=== PATIENT | male | born 1950 | race Caucasian/White ===

== ENCOUNTER → 2016-11-23 | Outpatient (CLI) | payer MEDICARE ==
[~2016-11-23] MED LIST: INDO50SU2 RC; LISI1TAB8 PO; MELO-195 PO; OXYC-197 PO; SULF-222 PO
--- NOTE | 2016-11-23 14:26 | Diagnostic Imaging Report ---
Ultrasound of the left lower extremity. INDICATION: Left calf pain. Possible muscle tear. FINDINGS: There is no fluid collection or hematoma seen. The evaluation of the muscle group at the area of pain demonstrate no obvious abnormality. IMPRESSION: No definite abnormality. Dictated by: Dictated on workstation # [id number]
== END ==
LOC: RAD 13:17
PROVIDERS: ATTEND Nurse Practitioner Family
DX: M79.622 Pain in left upper arm (principal)
CPT/HCPCS: 76881

== ENCOUNTER 2017-07-27 05:35 | Outpatient (CLI) | payer MEDICARE ==
[~2017-07-27] VITALS: Ht 182.9 cm; Wt 127.0 kg
[2017-07-27] MEDS ORDERED: LISI-552 PO (10:58)
== END 2017-07-27 14:00 ==
LOC: PREOP 05:35
PROVIDERS: ATTEND Surgery
DX: Z01.818 Encounter for other preprocedural examination (principal); Z12.11 Encounter for screening for malignant neoplasm of colon

== ENCOUNTER → 2017-08-12 | Outpatient (CLI) | payer MEDICARE ==
[~2017-08-12] MED LIST changes: +LISI-552 PO
--- NOTE | 2017-08-12 15:05 | Diagnostic Imaging Report ---
INDICATION: Left-sided facial droop. TECHNIQUE: Routine non contrast-enhanced axial images were obtained from the skull base to the vertex. COMPARISON: None. FINDINGS: The ventricles and cortical sulci are age-appropriate There is no midline shift or mass-effect. No acute intra-axial hemorrhage is seen. There are no abnormal areas of increased or decreased density to suggest acute hemorrhage or edema. No extra-axial masses or collections are present. The bony calvarium is intact. The visualized paranasal sinuses show scattered mucosal thickening. The mastoid air cells are clear. IMPRESSION: 1. No acute intracranial abnormality. No CT evidence of mass, acute infarct or intracranial hemorrhage. Dictated by: Dictated on workstation # [id number]
--- NOTE | 2017-08-12 15:47 | Diagnostic Imaging Report ---
PROCEDURE: US carotid duplex, bilateral. TECHNIQUE: Multiple real-time grayscale images were obtained over the carotid arteries in various projections, bilaterally. Additional duplex Doppler and color Doppler images were also obtained. Parameters based on the consensus panel Chambers-Scale and Doppler ultrasound criteria published March 2003, Radiology, Volume 229. DOPPLER (peak systolic velocity M/S Right Left CCA .93 .68 ICA Proximal .66 .31 ICA Mid NA NA ICA Distal NA NA RATIO .71 .46 ECA .65 .78 VERT .71 .46 INDICATION: Left facial droop and left arm weakness. FINDINGS: Examination is somewhat limited as the majority of the internal carotid arteries are not well visualized. Common carotid arteries are widely patent with normal arterial waveforms. No filling defect or occlusion is identified. There is antegrade flow within both vertebral arteries. IMPRESSION: Unremarkable carotid Doppler ultrasound; however, internal carotid arteries are not well seen. If further valuation is warranted, consideration could be given to CTA for assessment. Dictated by: Dictated on workstation # [id number]
== END ==
LOC: RAD 14:12
PROVIDERS: ATTEND Nurse Practitioner Family
DX: R29.810 Facial weakness (principal); R53.1 Weakness
CPT/HCPCS: 70450; 93880

== ENCOUNTER → 2018-10-25 | Outpatient (CLI) | payer MEDICARE, OTHER ==
[~2018-10-25] MED LIST changes: -OXYC-197 PO; +OXYC1TAB87 PO
--- NOTE | 2018-10-25 14:37 | Diagnostic Imaging Report ---
PROCEDURE: CT head without contrast. TECHNIQUE: Multiple contiguous axial images were obtained through the brain without the use of intravenous contrast. Auto Exposure Controls were utilized during the CT exam to meet ALARA standards for radiation dose reduction. INDICATION: Unsteady gait and Parkinson's. COMPARISON: Correlation is made with prior head CT from 08/12/2017. FINDINGS: The ventricles and sulci are within normal limits. No sulcal effacement or midline shift is seen. No acute intra-axial or extra-axial hemorrhage is detected. Cisterns are patent. Visualized paranasal sinuses demonstrate mucous retention cyst or polyp in right maxillary sinus. There is mucosal thickening bilateral ethmoid air cells and left maxillary sinus. IMPRESSION: No acute intracranial process is detected. Dictated by: Dictated on workstation # [id number]
== END ==
LOC: RAD 13:33
PROVIDERS: ATTEND Psychiatry & Neurology Neurology
DX: G20 Parkinson's disease (principal)
CPT/HCPCS: 70450

== ENCOUNTER 2018-11-15 01:18 | Emergency (ER) | payer MEDICARE ==
[~2018-11-15] VITALS: Ht 182.9 cm; Wt 127.0 kg
--- OUTSIDE RECORDS SUMMARY | 2018-11-15 01:31 | XMS REPORT ---
Author Author Migration, Doctor Organization [facility] Address Unknown Phone Unavailable Care Team Providers Care Academic Affairs Specialist Name Role Phone Migration, Doctor Unavailable Unavailable PROBLEMS Type Condition ICD9-CM Code VHD75-UZ Code Onset Dates Condition Status SNOMED Code Problem Medicare annual wellness visit, subsequent Z00.00 Active 107386019 Problem Facial droop R29.810 Active 24720834 Problem Mixed hyperlipidemia E78.2 Active 727860296 Problem Pain of left calf M79.662 Active 6966532041448326 Problem Venous insufficiency I87.2 Active 47831185 Problem Essential hypertension I10 Active 64210338 Problem Other chronic pain G89.29 Active 71222809 Problem Osteoarthritis M19.90 Active 140368736 Problem Morbid (severe) obesity due to excess calories E66.01 Active 292539010 Problem Body mass index (BMI) of 40.0-44.9 in adult Z68.41 Active 619382528 Problem Parkinsons disease G20 Active 27035536 Problem Mild major depression F32.0 Active 09026167 ALLERGIES No Information ENCOUNTERS Encounter Location Date Diagnosis [place] [id number] [place] [address] September, [facility] [id number] [place] [address] Aug, [facility] [id number] [place] [address] Aug, Pain in right shoulder M25.511 ; Other chronic pain G89.29 ; Mild major depression F32.0 and Morbid obesity E66.01 [facility] [id number] [place] [address] Jul, [facility] [id number] [place] [address] Jul, Acute pain of right shoulder M25.511 ; Mild major depression F32.0 ; Venous insufficiency I87.2 and Morbid obesity E66.01 [facility] [address] [address] 14 Jun, 2018 Peripheral edema R60.9 [place] [address] [address] 08 Jun, 2018 Parkinsons disease G20 ; Essential hypertension I10 and Osteoarthritis M19.90 [place] [address] [address] 16 Mar, 2018 [facility] [address] [address] 16 Mar, 2018 [facility] [address] [address] 13 Jan, 2018 Dermatitis L30.9 and Bilateral impacted cerumen H61.23 [place] [address] [address] Dec, Pain of left calf M79.662 [place] [address] [address] Nov, Pain of left calf M79.662 [place] [address] [address] Oct, Pain of left calf M79.662 [place] [address] [address] September, Pain of left calf M79.662 [place] [address] [address] Aug, Pain of left calf M79.662 [place] [address] [address] Aug, Essential hypertension I10 ; Osteoarthritis M19.90 ; Body mass index (BMI) of 40.0-44.9 in adult Z68.41 ; Morbid (severe) obesity due to excess calories E66.01 ; Mixed hyperlipidemia E78.2 and Facial droop R29.810 [facility] [id number] [place] [address] Jun, Encounter for immunization Z23 [facility] [address] [address] Jun, Pain of left calf M79.662 [facility] [address] [address] 15 Jun, 2017 Medicare annual wellness visit, initial Z00.00 ; Essential hypertension I10 ; Osteoarthritis M19.90 ; Encounter for immunization Z23 and Body mass index (BMI) of 38.0-38.9 in adult Z68.38 [facility] [address] [address] May, Pain of left calf M79.662 [facility] [address] [address] May, Pain of left calf M79.662 [facility] [address] [address] May, Acute nasopharyngitis J00 [facility] [address] [address] Mar, Pain of left calf M79.662 [facility] [address] [address] Feb, Cramps of left lower extremity R25.2 [facility] [id number] [place] [address] Feb, Cramps of left lower extremity R25.2 [facility] [address] [address] Feb, [facility] [id number] [place] [address] Jan, Cramps of left lower extremity R25.2 [facility] [address] [address] Nov, [facility] [id number] [place] [address] Nov, [facility] [address] [address] Nov, Pain of left calf M79.662 [facility] [id number] [place] [address] Oct, [facility] [id number] [place] [address] Oct, [facility] [id number] [place] [address] Oct, Essential hypertension I10 ; Cramps of left lower extremity R25.2 and Morbid (severe) obesity due to excess calories E66.01 [facility] [id number] [place] [address] Oct, Cramps of left lower extremity R25.2 ; Essential hypertension I10 and Morbid (severe) obesity due to excess calories E66.01 [facility] [address] [address] Aug, [facility] [address] [address] Aug, Cramps of left lower extremity R25.2 [facility] [address] [address] Jul, Pain in left shoulder M25.512 [facility] [id number] [place] [address] Jul, Tear of left rotator cuff, unspecified tear extent M75.102 [facility] [address] [address] Jun, Pain in left shoulder M25.512 [facility] [address] [address] Jun, Essential hypertension I10 ; Pain in left shoulder M25.512 and Morbid (severe) obesity due to excess calories E66.01 [place] [id number] [place] [address] May, Pain in left shoulder M25.512 [place] [id number] [place] [address] May, Tear of left rotator cuff, unspecified tear extent M75.102 [place] [id number] [place] [address] Apr, Medicare annual wellness visit, subsequent Z00.00 ; Body mass index (BMI) of 40.0-44.9 in adult Z68.41 ; Morbid (severe) obesity due to excess calories E66.01 ; Essential hypertension I10 ; Pain in left shoulder M25.512 and Other chronic pain G89.29 [place] [id number] [place] [address] Apr, Osteoarthritis M19.90 [place] [id number] [place] [address] Apr, Tear of left rotator cuff, unspecified tear extent M75.102 [place] [id number] [address] Apr, Tear of left rotator cuff, unspecified tear extent M75.102 [place] [id number] [place] [address] Mar, Tear of left rotator cuff, unspecified tear extent M75.102 [place] [id number] [place] [address] Mar, Tear of left rotator cuff, unspecified tear extent M75.102 [place] [address] [address] Mar, Tear of left rotator cuff, unspecified tear extent M75.102 [facility] [id number] [place] [address] Mar, Tear of left rotator cuff, unspecified tear extent M75.102 [facility] [id number] [place] [address] Mar, Essential hypertension I10 ; Obesity E66.9 and Bacterial conjunctivitis of both eyes H10.9 [place] [id number] [place] [address] Feb, Tear of left rotator cuff, unspecified tear extent M75.102 [place] [address] [place] [address] 17 Feb, 2016 Tear of left rotator cuff, unspecified tear extent M75.102 [place] [address] [id number] [place] [address] Feb, Tear of left rotator cuff, unspecified tear extent M75.102 [place] [id number] [place] [address] Feb, Tear of left rotator cuff, unspecified tear extent M75.102 [place] [address] [id number] [place] [address] Jan, Tear of left rotator cuff, unspecified tear extent M75.102 [place] [id number] [place] [address] Jan, Tear of left rotator cuff, unspecified tear extent M75.102 [place] [id number] [place] [address] Jan, Tear of left rotator cuff, unspecified tear extent M75.102 [place] [id number] [place] [address] Jan, Tear of left rotator cuff, unspecified tear extent M75.102 [place] [address] [id number] [place] [address] Dec, [facility] [address] [address] Dec, Tear of left rotator cuff, unspecified tear extent M75.102 [facility] [address] [address] Dec, Essential hypertension I10 ; Osteoarthritis M19.90 and Obesity E66.9 [facility] [id number] [place] [address] September, Essential hypertension I10 and Obesity E66.9 [facility] [id number] [place] [address] Jun, Essential hypertension I10 ; Obesity E66.9 and Osteoarthritis M19.90 [place] [id number] [place] [address] Jun, [facility] [id number] [place] [address] May, Tear of left rotator cuff, unspecified tear extent M75.102 [facility] [id number] [place] [address] May, Muscle spasm M62.838 [facility] [id number] [place] [address] Apr, [facility] [id number] [place] [address] Apr, Essential hypertension I10 [facility] [address] [id number] [id number] Feb, Dental examination Z01.20 and Dental caries, unspecified K02.9 [facility] [address] [address] 28 Jan, 2015 Impacted cerumen of both ears 380.[address] [facility] [address] [id number] [id number] 17 Jan, 2015 Dental examination V72.2 [facility] [address] [address] 14 Jan, 2015 Impacted cerumen of both ears 380.4 [facility] [address] [address] 02 Oct, 2014 Essential hypertension, benign 401.1 [facility] [address] [address] 14 Aug, 2014 [facility] [address] [address] Aug, [facility] [id number] [place] [address] Jul, [facility] [id number] [place] [address] Jul, [facility] [id number] [place] [address] Jun, [facility] [address] [address] Jun, [facility] [id number] [place] [address] Mar, [facility] [address] [address] Mar, [facility] [address] [address] Jul, [facility] [address] [address] Jul, [facility] [address] [address] Jun, [facility] [address] [address] Jun, [facility] [address] [address] Jun, [facility] [place] [facility] [address] [id number] [place] [address] Jun, 2013 [facility] [place] [facility] [address] [id number] [place] [address] Jun, [facility] [place] [facility] [address] [id number] [place] [address] Jun, [facility] [place] [facility] [address] [id number] [place] [address] Feb, [facility] [place] [facility] [address] [id number] [place] [address] Feb, [facility] [place] [facility] [address] [id number] [place] [address] Feb, [facility] [place] [facility] [address] [id number] [place] [address] Feb, [facility] [place] [facility] [address] [id number] [place] [address] Feb, [facility] [place] [facility] [address] [id number] [place] [address] Feb, [facility] [place] [facility] [address] [facility] [id number] [place] [address] Feb, [facility] [place] [facility] [address] [id number] [place] [address] Feb, [facility] [place] [facility] [address] [id number] [place] [address] 05 Feb, 2013 [facility] [place] [facility] [address] [id number] [place] [address] Feb, [facility] [place] [facility] [address] [id number] [place] [address] 10 Jan, 2012 [facility] [place] [facility] [address] [id number] [place] [address] 07 Jan, 2012 [facility] [place] [facility] [address] [facility] [id number] [place] [address] Aug, [facility] [address] [facility]] [id number] [place] [address] Aug, [facility] [id number] [address] Aug, [facility] [address] [facility] [id number] [place] [address] Aug, [facility] [address] [facility] [id number] [place] [address] September, IMMUNIZATIONS No Known Immunizations SOCIAL HISTORY Never Assessed REASON FOR VISIT [place] [place] CARE VITAL SIGNS MEDICATIONS Unknown Medications RESULTS No Results PROCEDURES No Known procedures INSTRUCTIONS MEDICATIONS ADMINISTERED No Known Medications MEDICAL (GENERAL) HISTORY Type Description Date Medical History obesity Medical History seasonal allergies Medical History benign essential hypertension Surgical History neuroplasty w/ transposition of median nerve at carpal tunnel 2005---right wrist 2005 Surgical History cataract removal Surgical History Colonoscopy- polyps removed- needs repeat colo in 5 yrs 07/2017 Hospitalization History pulled muscle, thought it was appendix @ age 17
--- OUTSIDE RECORDS SUMMARY | 2018-11-15 01:31 | XMS REPORT ---
Author Author Migration, Doctor Organization [facility] Address Unknown Phone Unavailable Care Team Providers Care Personalized Living Manager Name Role Phone Migration, Doctor Unavailable Unavailable PROBLEMS Type Condition ICD9-CM Code COX15-HP Code Onset Dates Condition Status SNOMED Code Problem Essential hypertension I10 Active 57701324 Problem Medicare annual wellness visit, subsequent Z00.00 Active 163959017 Problem Facial droop R29.810 Active 63463711 Problem Mild major depression F32.0 Active 91484789 Problem Osteoarthritis M19.90 Active 684570689 Problem Venous insufficiency I87.2 Active 92747805 Problem Pain of left calf M79.662 Active 5358617349363225 Problem Mixed hyperlipidemia E78.2 Active 353439694 Problem Morbid (severe) obesity due to excess calories E66.01 Active 411778370 Problem Body mass index (BMI) of 40.0-44.9 in adult Z68.41 Active 345218390 Problem Parkinsons disease G20 Active 17643394 ALLERGIES No Information ENCOUNTERS Encounter Location Date Diagnosis [place] [address] [address] 08 Aug, 2018 [place] [address] [address] 28 Jul, 2018 [place] [address] [address] 22 Jul, 2018 Acute pain of right shoulder M25.511 ; Mild major depression F32.0 ; Venous insufficiency I87.2 and Morbid obesity E66.01 [place] [address] [address] 14 Jun, 2018 Peripheral edema R60.9 [place] [address] [address] 08 Jun, 2018 Parkinsons disease G20 ; Essential hypertension I10 and Osteoarthritis M19.90 [place] [address] [place] [id number] [place] [address] 16 Mar, 2018 [facility] [address] [address] Mar, [facility] [address] [address] Jan, Dermatitis L30.9 and Bilateral impacted cerumen H61.23 [facility] [address] [address] Dec, Pain of left calf M79.662 [place] [address] [address] Nov, Pain of left calf M79.662 [place] [address] [address] Oct, Pain of left calf M79.662 [place] [address] [address] September, Pain of left calf M79.662 [place] [address] [address] Aug, Pain of left calf M79.662 [place] [address] [address] Aug, Essential hypertension I10 ; Osteoarthritis M19.90 ; Body mass index (BMI) of 40.0-44.9 in adult Z68.41 ; Morbid (severe) obesity due to excess calories E66.01 ; Mixed hyperlipidemia E78.2 and Facial droop R29.810 [place] [address] [address] Jun, Encounter for immunization Z23 [place] [address] [address] Jun, Pain of left calf M79.662 [place] [address] [place] [address] 15 Jun, 2017 Medicare annual wellness visit, initial Z00.00 ; Essential hypertension I10 ; Osteoarthritis M19.90 ; Encounter for immunization Z23 and Body mass index (BMI) of 38.0-38.9 in adult Z68.38 [facility] [address] [place] [id number] [place] [address] May, Pain of left calf M79.662 [facility] [address] [place] [id number] [place] [address] May, Pain of left calf M79.662 [facility] [address] [address] May, Acute nasopharyngitis J00 [facility] [address] [place] [id number] [place] [address] Mar, Pain of left calf M79.662 [facility] [address] [place] [id number] [place] [address] Feb, Cramps of left lower extremity R25.2 [facility] [address] [place] [id number] [place] [address] Feb, Cramps of left lower extremity R25.2 [facility] [address] [place] [id number] [place] [address] Feb, [facility] [address] [place] [id number] [place] [address] Jan, Cramps of left lower extremity R25.2 [facility] [address] [place] [id number] [place] [address] Nov, [facility] [address] [address] Nov, [facility] [address] [place] [id number] [place] [address] Nov, Pain of left calf M79.662 [facility] [address] [address] Oct, [facility] [address] [address] Oct, [facility] [address] [address] Oct, Essential hypertension I10 ; Cramps of left lower extremity R25.2 and Morbid (severe) obesity due to excess calories E66.01 [facility] [address] [address] Oct, Cramps of left lower extremity R25.2 ; Essential hypertension I10 and Morbid (severe) obesity due to excess calories E66.01 [facility] [address] [address] Aug, [facility] [address] [place] [id number] [place] [address] Aug, Cramps of left lower extremity R25.2 [facility] [address] [address] Jul, Pain in left shoulder M25.512 [facility] [address] [address] Jul, Tear of left rotator cuff, unspecified tear extent M75.102 [facility] [address] [place] [id number] [address] Jun, Pain in left shoulder M25.512 [facility] [address] [address] Jun, Essential hypertension I10 ; Pain in left shoulder M25.512 and Morbid (severe) obesity due to excess calories E66.01 [facility] [address] [place] [id number] [address] May, Pain in left shoulder M25.512 [facility] [address] [place] [id number] [place] [address] May, Tear of left rotator cuff, unspecified tear extent M75.102 [place] [address] [place] [id number] Apr, Medicare annual wellness visit, subsequent Z00.00 ; Body mass index (BMI) of 40.0-44.9 in adult Z68.41 ; Morbid (severe) obesity due to excess calories E66.01 ; Essential hypertension I10 ; Pain in left shoulder M25.512 and Other chronic pain G89.29 [place] [address] [place] [id number] [place] [address] 27 Apr, 2016 Osteoarthritis M19.90 [place] [address] [address] Apr, Tear of left rotator cuff, unspecified tear extent M75.102 [place] [address] [address] Apr, Tear of left rotator cuff, unspecified tear extent M75.102 [place] [address] [place] [id number] [place] [address] Mar, Tear of left rotator cuff, unspecified tear extent M75.102 [place] [address] [place] [id number] [place] [address] Mar, Tear of left rotator cuff, unspecified tear extent M75.102 [place] [address] [place] [id number] [place] [address] Mar, Tear of left rotator cuff, unspecified tear extent M75.102 [place] [address] [place] [id number] [place] [address] Mar, Tear of left rotator cuff, unspecified tear extent M75.102 [place] [address] [place] [id number] [place] [address] 08 Mar, 2016 Essential hypertension I10 ; Obesity E66.9 and Bacterial conjunctivitis of both eyes H10.9 [place] [address] [address] Feb, Tear of left rotator cuff, unspecified tear extent M75.102 [facility] [address] [place] [id number] [place] [address] Feb, Tear of left rotator cuff, unspecified tear extent M75.102 [facility] [address] [place] [id number] [place] [address] Feb, Tear of left rotator cuff, unspecified tear extent M75.102 [facility] [address] [place] [id number] [place] [address] Feb, Tear of left rotator cuff, unspecified tear extent M75.102 [facility] [address] [place] [id number] [place] [address] Jan, Tear of left rotator cuff, unspecified tear extent M75.102 [facility] [address] [place] [id number] [place] [address] Jan, Tear of left rotator cuff, unspecified tear extent M75.102 [facility] [address] [place] [id number] [place] [address] Jan, Tear of left rotator cuff, unspecified tear extent M75.102 [facility] [id number] [place] [address] Jan, Tear of left rotator cuff, unspecified tear extent M75.102 [facility] [address] [place] [id number] [place] [address] Dec, [facility] [address] [place] [id number] [place] [address] Dec, Tear of left rotator cuff, unspecified tear extent M75.102 [facility] [id number] [place] [address] Dec, Essential hypertension I10 ; Osteoarthritis M19.90 and Obesity E66.9 [facility] [address] [place] [id number] [place] [address] September, Essential hypertension I10 and Obesity E66.9 [place] [address] [place] [id number] [place] [address] Jun, Essential hypertension I10 ; Obesity E66.9 and Osteoarthritis M19.90 [place] [address] [place] [id number] [place] [address] Jun, [place] [address] [place] [id number] [place] [address] May, Tear of left rotator cuff, unspecified tear extent M75.102 [place] [address] [address] May, Muscle spasm M62.838 [place] [address] [place] [id number] [place] [address] Apr, [place] [address] [place] [id number] [place] [address] Apr, Essential hypertension I10 [address] [id number] [id number] Feb, Dental examination Z01.20 and Dental caries, unspecified K02.9 [place] [id number] [place] [address] Jan, Impacted cerumen of both ears 380.[address] [id number] [id number] 17 Jan, 2015 Dental examination V72.2 [place] [id number] [place] [address] 14 Jan, 2015 Impacted cerumen of both ears 380.4 [place] [address] [place] [id number] [place] [address] Oct, Essential hypertension, benign 401.1 [place] [address] [place] [id number] [place] [address] 14 Aug, 2014 [facility] [place] [facility] [address] [id number] [place] [address] 13 Aug, 2014 [facility] [place] [facility] [address] [id number] [place] [address] Jul, [facility] [place] [facility] [address] [id number] [place] [address] Jul, [facility] [place] [facility] [address] [id number] [place] [address] Jun, [facility] [place] [facility] [address] [id number] [place] [address] Jun, [facility] [place] [facility] [address] [id number] [place] [address] Mar, [facility] [place] [facility] [address] [facility] [id number] [place] [address] Mar, [facility] [place] [facility] [address] [id number] [place] [address] Jul, [facility] [place] [facility] [address] [facility] [id number] [place] [address] Jul, [facility] [place] [facility] [address] [facility] [id number] [place] [address] Jun, [facility] [place] [facility] [address] [facility] [id number] [place] [address] Jun, [facility] [place] [facility] [address] [id number] [place] [address] Jun, [facility] [place] [facility] [address] [id number] [place] [address] Jun, [facility] [place] [facility] [address] [facility] [id number] [place] [address] Jun, [facility] [place] [facility] [address] [facility] [id number] [place] [address] Jun, [facility] [place] [facility] [address] [id number] [place] [address] Feb, 2012 [facility] [place] [facility] [address] [id number] [place] [address] Feb, 2012 [facility] [place] [facility] [address] [id number] [place] [address] Feb, 2012 [facility] [place] [facility] [address] [id number] [place] [address] Feb, 2012 [facility] [place] [facility] [address] [id number] [place] [address] Feb, 2012 [facility] [place] [facility] [address] [id number] [place] [address] Feb, 2012 [facility] [place] [facility] [address] [id number] [place] [address] 08 Feb, 2013 [facility] [place] [facility] [address] [id number] [place] [address] 07 Feb, 2012 [facility] [place] [facility] [address] [id number] [place] [address] 05 Feb, 2013 [facility] [place] [facility] [address] [id number] [place] [address] 04 Feb, 2013 [facility] [place] [facility] [address] [id number] [place] [address] 10 Jan, 2012 [facility] [place] [facility] [address] [id number] [place] [address] 07 Jan, 2012 [facility] [place] [facility] [address] [id number] [place] [address] 23 Aug, 2011 [facility] [place] [facility] [address] [id number] [place] [address] 16 Aug, 2011 [facility] [place] [facility] [address] [id number] [place] [address] 16 Aug, 2011 [facility] [place] [facility] [address] [id number] [place] [address] Aug, [facility] [address] [facility] [id number] [place] [address] September, IMMUNIZATIONS No Known Immunizations SOCIAL HISTORY Never Assessed REASON FOR VISIT EMR-[facility] PLAN OF CARE VITAL SIGNS MEDICATIONS Medication Instructions Dosage Frequency Start Date End Date Duration Status Lisinopril-Hydrochlorothiazide 20-25 mg take 1 tablet by Oral route 1 time per day Jul, Active Debrox 6.5 % 3 drop by Otic route 2 times per day for 4 day(s) Aug, Active PredniSONE 20 mg 3 tablet by Oral route 1 time per day for 5 day(s) Jun, Active RESULTS No Results PROCEDURES No Known procedures [...]
--- OUTSIDE RECORDS SUMMARY | 2018-11-15 01:32 | XMS REPORT ---
Author Author BIBIANA DANGELO [facility] Address [address] [place] [address] Care Team Providers Care Interactive Project Manager Name Role Phone LORETO BIBIANA Unavailable PROBLEMS Type Condition ICD9-CM Code [id number] Code Onset Dates Condition Status SNOMED Code Problem Osteoarthritis M19.90 Active 922614925 Problem Pain of left calf M79.662 Active 6419509411993735 Problem Morbid (severe) obesity due to excess calories E66.01 Active 664445711 Problem Mixed hyperlipidemia E78.2 Active 103718032 Problem Medicare annual wellness visit, subsequent Z00.00 Active 529323434 Problem Essential hypertension I10 Active 24114588 Problem Body mass index (BMI) of 40.0-44.9 in adult Z68.41 Active 993256982 Problem Facial droop R29.810 Active 24565208 ALLERGIES No Information ENCOUNTERS Encounter Location Date Diagnosis [facility] [address] [address] Dec, [facility] [id number] [place] [address] Nov, [facility] [id number] [place] [address] Oct, [facility] [id number] [place] [address] September, Pain of left calf M79.662 [facility] [address] [address] Aug, Pain of left calf M79.662 [facility] [id number] [place] [address] Aug, Essential hypertension I10 ; Osteoarthritis M19.90 ; Body mass index (BMI) of 40.0-44.9 in adult Z68.41 ; Morbid (severe) obesity due to excess calories E66.01 ; Mixed hyperlipidemia E78.2 and Facial droop R29.810 [place] [address] [address] Jun, Encounter for immunization Z23 [facility] [address] [address] Jun, Pain of left calf M79.662 [place] [address] [address] 15 Jun, 2017 Medicare annual wellness visit, initial Z00.00 ; Essential hypertension I10 ; Osteoarthritis M19.90 ; Encounter for immunization Z23 and Body mass index (BMI) of 38.0-38.9 in adult Z68.38 [place] [address] [address] May, Pain of left calf M79.662 [place] [address] [address] May, Pain of left calf M79.662 [facility] [address] [address] May, Acute nasopharyngitis J00 [facility] [address] [address] Mar, Pain of left calf M79.662 [facility] [address] [address] Feb, Cramps of left lower extremity R25.2 [place] [address] [address] Feb, Cramps of left lower extremity R25.2 [facility] [address] [address] Feb, [facility] [address] [address] Jan, Cramps of left lower extremity R25.2 [facility] [address] [address] Nov, [facility] [address], [place] [address] Nov, [facility] [id number] [place] [address] Nov, Pain of left calf M79.662 [facility] [address] [address] Oct, [facility] [id number] [place] [address] Oct, [facility] [address] [place] [address] Oct, Essential hypertension I10 ; Cramps of left lower extremity R25.2 and Morbid (severe) obesity due to excess calories E66.01 [facility] [address], [place] [address] Oct, Cramps of left lower extremity R25.2 ; Essential hypertension I10 and Morbid (severe) obesity due to excess calories E66.01 [facility] [address] [address] Aug, [facility] [id number] [place] [address] Aug, Cramps of left lower extremity R25.2 [facility] [address], [place] [address] Jul, Pain in left shoulder M25.512 [facility] [address], [place] [address] Jul, Tear of left rotator cuff, unspecified tear extent M75.102 [facility] [id number] [place] [address] Jun, Pain in left shoulder M25.512 [place] [address], [place] [address] Jun, Essential hypertension I10 ; Pain in left shoulder M25.512 and Morbid (severe) obesity due to excess calories E66.01 [place] [address], [place] [address] May, Pain in left shoulder M25.512 [place] [id number], [place] [address] May, Tear of left rotator cuff, unspecified tear extent M75.102 [place] [id number] [place] [address] Apr, Medicare annual wellness visit, subsequent Z00.00 ; Body mass index (BMI) of 40.0-44.9 in adult Z68.41 ; Morbid (severe) obesity due to excess calories E66.01 ; Essential hypertension I10 ; Pain in left shoulder M25.512 and Other chronic pain G89.29 [place] [id number] [place] [address] Apr, Osteoarthritis M19.90 [place] [id number] [place] [address] Apr, Tear of left rotator cuff, unspecified tear extent M75.102 [place] [address], [place] [address] Apr, Tear of left rotator cuff, unspecified tear extent M75.102 [place] [address] [place] [address] Mar, Tear of left rotator cuff, unspecified tear extent M75.102 [place] [address], [place] [address] Mar, Tear of left rotator cuff, unspecified tear extent M75.102 [place] [id number] [place] [address] Mar, Tear of left rotator cuff, unspecified tear extent M75.102 [place] [address] [place] [address] Mar, Tear of left rotator cuff, unspecified tear extent M75.102 [place] [address] [place] [address] Mar, Essential hypertension I10 ; Obesity E66.9 and Bacterial conjunctivitis of both eyes H10.9 [place] [address] [place] [address] Feb, Tear of left rotator cuff, unspecified tear extent M75.102 [place] [id number] [place] [address] Feb, Tear of left rotator cuff, unspecified tear extent M75.102 [place] [address] [address] Feb, Tear of left rotator cuff, unspecified tear extent M75.102 [place] [address] [place] [address] Feb, Tear of left rotator cuff, unspecified tear extent M75.102 [place] [id number] [place] [address] Jan, Tear of left rotator cuff, unspecified tear extent M75.102 [place] [id number] [place] [address] Jan, Tear of left rotator cuff, unspecified tear extent M75.102 [place] [address] [place] [address] Jan, Tear of left rotator cuff, unspecified tear extent M75.102 [place] [id number] [place] [address] Jan, Tear of left rotator cuff, unspecified tear extent M75.102 [place] [id number] [place] [address] Dec, [place] [id number] [place] [address] Dec, Tear of left rotator cuff, unspecified tear extent M75.102 [facility] [address] [place] [address] Dec, Essential hypertension I10 ; Osteoarthritis M19.90 and Obesity E66.9 [place] [id number] [place] [address] September, Essential hypertension I10 and Obesity E66.9 [place] [id number] [place] [address] Jun, Essential hypertension I10 ; Obesity E66.9 and Osteoarthritis M19.90 [place] [id number] [place] [address] Jun, [place] [id number] [place] [address] May, Tear of left rotator cuff, unspecified tear extent M75.102 [place] [address] [place] [address] May, Muscle spasm M62.838 [place] [id number] [place] [address] Apr, [place] [id number] [place] [address] Apr, Essential hypertension I10 [facility] [address] [id number] [id number] Feb, Dental examination Z01.20 and Dental caries, unspecified K02.9 [facility] [id number], [place] [address] Jan, Impacted cerumen of both ears 380.4 [facility] [address] [id number] [id number] 17 Jan, 2015 Dental examination V72.2 [facility] [address], [place] [address] 14 Jan, 2015 Impacted cerumen of both ears 380.4 [facility] [address], [place] [address] 02 Oct, 2014 Essential hypertension, benign 401.1 [facility] [address], [place] [address] 14 Aug, 2014 [facility] [id number] [place] [address] Aug, [facility] [id number], [place] [address] Jul, [facility] [id number] [place] [address] Jul, [facility] [address], [place] [address] Jun, [facility] [address], [place] [address] Jun, [facility] [address], [place] [address] Mar, [facility] [address], [place] [address] Mar, [facility] [address], [place] [address] Jul, [facility] [address], [place] [address] Jul, [facility] [address], [place] [address] Jun, [facility] [id number], [place] [address] Jun, [facility] [place] [facility] [address] [id number] [place] [address] Jun, 2013 [facility] [place] [facility] [address] [id number] [place] [address] Jun, 2013 [facility] [place] [facility] [address] [id number] [place] [address] Jun, [facility] [place] [facility] [address] [id number] [place] [address] Jun, [facility] [place] [facility] [address] [id number] [place] [address] Feb, [facility] [place] [facility] [address] [id number] [place] [address] Feb, [facility] [place] [facility] [address] [id number] [place] [address] Feb, [facility] [place] [facility] [address] [id number], [place] [address] Feb, [facility] [place] [facility] [address] [id number] [place] [address] Feb, [facility] [place] [facility] [address] [id number], [place] [address] Feb, [facility] [place] [facility] [address] [facility] [id number], [place] [address] Feb, [facility] [place] [facility] [address] [id number], [place] [address] Feb, [facility] [place] [facility] [address] [id number], [place] [address] 05 Feb, 2013 [facility] [place] [facility] [address] [id number], [place] [address] 04 Feb, 2013 [facility] [place] [facility] [address] [id number], [place] [address] 10 Jan, 2012 [facility] [place] [facility] [address] [id number], [place] [address] Jan, [facility] [address] [facility] [id number], [place] [address] Aug, [facility] [id number], [place] [address] Aug, [facility] [address] [facility] [id number], [place] [address] Aug, [facility] [id number], [place] [address] Aug, [facility] [address] [facility] [id number], [place] [address] September, IMMUNIZATIONS No Known Immunizations SOCIAL HISTORY Never Assessed REASON FOR VISIT PT follow-up PLAN OF CARE Activity Details Follow Up 2 Weeks Reason:F/U PT VITAL SIGNS MEDICATIONS Unknown Medications RESULTS No Results PROCEDURES Procedure Date Ordered Result Body Site THERAPEUTIC EXERCISES August 15, 2017 INSTRUCTIONS MEDICATIONS ADMINISTERED No Known Medications MEDICAL (GENERAL) HISTORY Type Description Date Medical History obesity Medical History seasonal allergies Medical History benign essential hypertension Surgical History neuroplasty w/ transposition of median nerve at carpal tunnel 2005---right wrist 2005 Surgical History cataract removal Surgical History Colonoscopy 07/2017 Hospitalization History pulled muscle, thought it was appendix @ age 17
--- OUTSIDE RECORDS SUMMARY | 2018-11-15 01:32 | XMS REPORT ---
Author Author BIBIANA DANGELO [facility] Address [address] [place] [address] Care Team Providers Care Heel Shaper Name Role Phone LORETO BIBIANA Unavailable PROBLEMS Type Condition ICD9-CM Code PVU35-XU Code Onset Dates Condition Status SNOMED Code Problem Osteoarthritis M19.90 Active 415188595 Problem Pain of left calf M79.662 Active 2162665903405367 Problem Morbid (severe) obesity due to excess calories E66.01 Active 978518790 Problem Mixed hyperlipidemia E78.2 Active 092751744 Problem Medicare annual wellness visit, subsequent Z00.00 Active 579734424 Problem Essential hypertension I10 Active 06999008 Problem Body mass index (BMI) of 40.0-44.9 in adult Z68.41 Active 963780082 Problem Facial droop R29.810 Active 09936876 ALLERGIES No Information ENCOUNTERS Encounter Location Date Diagnosis [facility] [id number] [place] [address] 13 Jan, 2018 Dermatitis L30.9 and Bilateral impacted cerumen H61.23 [facility] [id number] [place] [address] Dec, [facility] [id number] [place] [address] Nov, [facility] [id number] [place] [address] Oct, Pain of left calf M79.662 [facility] [id number] [place] [address] September, Pain of left calf M79.662 [facility] [id number] [place] [address] Aug, Pain of left calf M79.662 [facility] [id number] [place] [address] 02 Aug, 2017 Essential hypertension I10 ; Osteoarthritis M19.90 ; Body mass index (BMI) of 40.0-44.9 in adult Z68.41 ; Morbid (severe) obesity due to excess calories E66.01 ; Mixed hyperlipidemia E78.2 and Facial droop R29.810 [place] [id number] [place] [address] Jun, Encounter for immunization Z23 [place] [address] [address] Jun, Pain of left calf M79.662 [place] [facility] [id number] [place] [address] 15 Jun, 2017 Medicare annual wellness visit, initial Z00.00 ; Essential hypertension I10 ; Osteoarthritis M19.90 ; Encounter for immunization Z23 and Body mass index (BMI) of 38.0-38.9 in adult Z68.38 [place] [id number] [place] [address] May, Pain of left calf M79.662 [facility] [facility] [id number] [place] [address] May, Pain of left calf M79.662 [facility] [id number] [place] [address] May, Acute nasopharyngitis J00 [facility] [id number] [place] [address] Mar, Pain of left calf M79.662 [facility] [address] [address] Feb, Cramps of left lower extremity R25.2 [place] [facility] [id number] [place] [address] Feb, Cramps of left lower extremity R25.2 [facility] [address] [id number], [place] [address] Feb, [facility] [address] [id number], [place] [address] Jan, Cramps of left lower extremity R25.2 [facility] [address] [id number] [address] Nov, [facility] [address] [id number], [place] [address] Nov, [facility] [id number] [place] [address] Nov, Pain of left calf M79.662 [facility] [address], [place] [address] Oct, [facility] [address] [id number] [address] Oct, [facility] [address] [id number] [address] Oct, Essential hypertension I10 ; Cramps of left lower extremity R25.2 and Morbid (severe) obesity due to excess calories E66.01 [facility] [address] [address] Oct, Cramps of left lower extremity R25.2 ; Essential hypertension I10 and Morbid (severe) obesity due to excess calories E66.01 [facility] [address] [id number], [place] [address] Aug, [facility] [address] [id number] [address] Aug, Cramps of left lower extremity R25.2 [facility] [id number], [place] [address] Jul, Pain in left shoulder M25.512 [facility] [address] [place] [address] Jul, Tear of left rotator cuff, unspecified tear extent M75.102 [place] [id number] [place] [address] Jun, Pain in left shoulder M25.512 [place] [facility] [id number] [place] [address] Jun, Essential hypertension I10 ; Pain in left shoulder M25.512 and Morbid (severe) obesity due to excess calories E66.01 [place] [facility] [id number] [place] [address] May, Pain in left shoulder M25.512 [place] [id number] [place] [address] May, Tear of left rotator cuff, unspecified tear extent M75.102 [place] [facility] [id number] [place] [address] Apr, Medicare annual wellness visit, subsequent Z00.00 ; Body mass index (BMI) of 40.0-44.9 in adult Z68.41 ; Morbid (severe) obesity due to excess calories E66.01 ; Essential hypertension I10 ; Pain in left shoulder M25.512 and Other chronic pain G89.29 [place] [address], [place] [address] Apr, Osteoarthritis M19.90 [place] [facility] [id number] [place] [address] Apr, Tear of left rotator cuff, unspecified tear extent M75.102 [place] [facility] [id number] [place] [address] Apr, Tear of left rotator cuff, unspecified tear extent M75.102 [place] [address], [place] [address] Mar, Tear of left rotator cuff, unspecified tear extent M75.102 [place] [id number] [place] [address] Mar, Tear of left rotator cuff, unspecified tear extent M75.102 [place] [id number] [place], [place] [address] Mar, Tear of left rotator cuff, unspecified tear extent M75.102 [place] [address] [address] Mar, Tear of left rotator cuff, unspecified tear extent M75.102 [place] [address] [address] Mar, Essential hypertension I10 ; Obesity E66.9 and Bacterial conjunctivitis of both eyes H10.9 [place] [address] [address] Feb, Tear of left rotator cuff, unspecified tear extent M75.102 [place] [id number] [place] [address] Feb, Tear of left rotator cuff, unspecified tear extent M75.102 [place] [id number] [place] [address] Feb, Tear of left rotator cuff, unspecified tear extent M75.102 [place] [id number] [place] [address] Feb, Tear of left rotator cuff, unspecified tear extent M75.102 [place] [id number] [place] [address] 28 Jan, 2016 Tear of left rotator cuff, unspecified tear extent M75.102 [place] [id number] [place] [address] 19 Jan, 2016 Tear of left rotator cuff, unspecified tear extent M75.102 [place] [id number] [place] [address] 06 Jan, 2016 Tear of left rotator cuff, unspecified tear extent M75.102 [facility] [address], [place] [address] Jan, Tear of left rotator cuff, unspecified tear extent M75.102 [facility] [address], [place] [address] Dec, [facility] [id number] [place] [address] Dec, Tear of left rotator cuff, unspecified tear extent M75.102 [facility] [address] [place] [address] Dec, Essential hypertension I10 ; Osteoarthritis M19.90 and Obesity E66.9 [facility] [id number] [place] [address] September, Essential hypertension I10 and Obesity E66.9 [facility] [id number] [place] [address] Jun, Essential hypertension I10 ; Obesity E66.9 and Osteoarthritis M19.90 [facility] [address] [place] [address] Jun, [facility] [address] [place] [address] May, Tear of left rotator cuff, unspecified tear extent M75.102 [facility] [address] [place] [address] May, Muscle spasm M62.838 [facility] [address], [place] [address] Apr, [place] [id number] [place] [address] Apr, Essential hypertension I10 [id number] [facility] [id number] [id number] Feb, Dental examination Z01.20 and Dental caries, unspecified K02.9 [facility] [address] [id number], [place] [address] 28 Jan, 2015 Impacted [facility]umen [facility] both ears 380.4 [facility] [id number] [id number] 17 Jan, 2015 Dental examination V72.2 [facility] [address] [id number], [place] [address] 14 Jan, 2015 Impacted cerumen of both ears 380.4 [facility] [address] [id number], [place] [address] 02 Oct, 2014 Essential hypertension, benign 401.1 [facility] [address] [id number], [place] [address] 14 Aug, 2014 [facility] [address], [place] [address] Aug, [facility] [address], [place] [address] Jul, [facility] [address], [place] [address] Jul, [facility] [address], [place] [address] Jun, [facility] [address], [place] [address] Jun, [facility] [id number], [place] [address] Mar, [facility] [id number], [place] [address] Mar, [facility] [address], [place] [address] Jul, [facility] [id number], [place] [address] Jul, [facility] [id number] [place] [address] Jun, 2013 [facility] [place] [facility] [address] [id number] [place] [address] Jun, 2013 [facility] [place] [facility] [address] [id number] [place] [address] Jun, 2013 [facility] [place] [facility] [address] [id number] [place] [address] Jun, 2013 [facility] [place] [facility] [address] [id number] [place] [address] Jun, 2013 [facility] [place] [facility] [address] [id number] [place] [address] Jun, 2013 [facility] [place] [facility] [address] [id number] [place] [address] Feb, [facility] [place] [facility] [address] [id number] [place] [address] Feb, [facility] [place] [facility] [address] [id number] [place] [address] Feb, [facility] [place] [facility] [address] [id number] [place] [address] Feb, [facility] [place] [facility] [address] [id number] [place] [address] Feb, [facility] [place] [facility] [address] [id number] [place] [address] Feb, [facility] [place] [facility] [address] [id number] [place] [address] 08 Feb, 2013 [facility] [place] [facility] [address] [id number] [place] [address] 07 Feb, 2013 [facility] [place] [facility] [address] [id number] [place] [address] 05 Feb, 2013 [facility] [place] [facility] [address] [id number] [place] [address] Feb, [facility] [id number], [place] [address] Jan, [facility] [address], [place] [address] Jan, [facility] [id number], [place] [address] Aug, [facility] [address], [place] [address] Aug, [facility] [address], [place] [address] Aug, [facility] [address], [place] [address] Aug, [facility] [address], [place] [address] September, IMMUNIZATIONS No Known Immunizations SOCIAL HISTORY Never Assessed REASON FOR VISIT PT follow-up PLAN OF CARE Activity Details Follow Up 3 Weeks Reason:F/U PT VITAL SIGNS MEDICATIONS No Known Medications RESULTS No Results PROCEDURES Procedure Date Ordered Result Body Site THERAPEUTIC EXERCISES October 31, 2017 INSTRUCTIONS MEDICATIONS ADMINISTERED No Known Medications [...]
--- OUTSIDE RECORDS SUMMARY | 2018-11-15 01:32 | XMS REPORT ---
Author Author CARLA SERRATO [facility] Address [address] [place] [address] Care Team Providers Care Mining Helper Name Role Phone CARLA SERRATO Unavailable PROBLEMS Type Condition ICD9-CM Code XYV02-ER Code Onset Dates Condition Status SNOMED Code Problem Osteoarthritis M19.90 Active 234072788 Problem Pain of left calf M79.662 Active 9557317556583382 Problem Morbid (severe) obesity due to excess calories E66.01 Active 552567229 Problem Mixed hyperlipidemia E78.2 Active 613967303 Problem Medicare annual wellness visit, subsequent Z00.00 Active 790106943 Problem Essential hypertension I10 Active 52105112 Problem Body mass index (BMI) of 40.0-44.9 in adult Z68.41 Active 878529643 Problem Facial droop R29.810 Active 20576774 ALLERGIES No Known Allergies ENCOUNTERS Encounter Location Date Diagnosis [facility] [id number] [place] [address] 13 Jan, 2018 Dermatitis L30.9 and Bilateral impacted cerumen H61.23 [place] [id number] [place] [address] 07 Dec, 2017 [place] [id number] [place] [address] Nov, [place] [id number] [place] [address] Oct, Pain of left calf M79.662 [facility] [id number] [place] [address] September, Pain of left calf M79.662 [place] [id number] [place] [address] Aug, Pain of left calf M79.662 [facility] [address] [address] Aug, Essential hypertension I10 ; Osteoarthritis M19.90 ; Body mass index (BMI) of 40.0-44.9 in adult Z68.41 ; Morbid (severe) obesity due to excess calories E66.01 ; Mixed hyperlipidemia E78.2 and Facial droop R29.810 [place] [address] [address] Jun, Encounter for immunization Z23 [place] [address] [address] Jun, Pain of left calf M79.662 [place] [address] [address] 15 Jun, 2017 Medicare annual wellness visit, initial Z00.00 ; Essential hypertension I10 ; Osteoarthritis M19.90 ; Encounter for immunization Z23 and Body mass index (BMI) of 38.0-38.9 in adult Z68.38 [place] [address] [address] May, Pain of left calf M79.662 [facility] [address] [address] May, Pain of left calf M79.662 [facility] [address] [address] May, Acute nasopharyngitis J00 [facility] [address] [address] Mar, Pain of left calf M79.662 [facility] [address] [address] Feb, Cramps of left lower extremity R25.2 [place] [address] [address] Feb, Cramps of left lower extremity R25.2 [facility] [address] [facility] [id number], [place] [address] Feb, [facility] [address] [facility] [id number], [place] [address] Jan, Cramps of left lower extremity R25.2 [facility] [id number] [place] [address] Nov, [facility] [address] [facility] [id number], [place] [address] Nov, [facility] [id number] [place] [address] Nov, Pain of left calf M79.662 [facility] [address] [id number] [address] Oct, [facility] [address] [id number], [place] [address] Oct, [facility] [address] [id number] [address] Oct, Essential hypertension I10 ; Cramps of left lower extremity R25.2 and Morbid (severe) obesity due to excess calories E66.01 [facility] [address] [id number] [address] Oct, Cramps of left lower extremity R25.2 ; Essential hypertension I10 and Morbid (severe) obesity due to excess calories E66.01 [facility] [address] [facility] [id number], [place] [address] Aug, [facility] [address] [facility] [id number], [place] [address] Aug, Cramps of left lower extremity R25.2 [facility] [address] [id number], [place] [address] Jul, Pain in left shoulder M25.512 [place] [address] [address] Jul, Tear of left rotator cuff, unspecified tear extent M75.102 [facility] [id number] [place] [address] 15 Jun, 2016 Pain in left shoulder M25.512 [place] [id number] [place] [address] Jun, Essential hypertension I10 ; Pain in left shoulder M25.512 and Morbid (severe) obesity due to excess calories E66.01 [place] [id number] [place] [address] May, Pain in left shoulder M25.512 [place] [id number] [place] [address] May, Tear of left rotator cuff, unspecified tear extent M75.102 [place] [id number] [place] [address] Apr, Medicare annual wellness visit, subsequent Z00.00 ; Body mass index (BMI) of 40.0-44.9 in adult Z68.41 ; Morbid (severe) obesity due to excess calories E66.01 ; Essential hypertension I10 ; Pain in left shoulder M25.512 and Other chronic pain G89.29 [place] [address] [place] [address] Apr, Osteoarthritis M19.90 [place] [id number] [place] [address] Apr, Tear of left rotator cuff, unspecified tear extent M75.102 [place] [id number] [place] [address] Apr, Tear of left rotator cuff, unspecified tear extent M75.102 [place] [id number] [place] [address] Mar, Tear of left rotator cuff, unspecified tear extent M75.102 [place] [id number] [place] [address] Mar, Tear of left rotator cuff, unspecified tear extent M75.102 [place] [id number] [place] [address] Mar, Tear of left rotator cuff, unspecified tear extent M75.102 [place] [id number] [place] [address] Mar, Tear of left rotator cuff, unspecified tear extent M75.102 [place] [address] [place] [address] Mar, Essential hypertension I10 ; Obesity E66.9 and Bacterial conjunctivitis of both eyes H10.9 [place] [id number] [place] [address] 31 Feb, 2016 Tear of left rotator cuff, unspecified tear extent M75.102 [place] [id number] [place] [address] 17 Feb, 2016 Tear of left rotator cuff, unspecified tear extent M75.102 [place] [id number] [place] [address] Feb, Tear of left rotator cuff, unspecified tear extent M75.102 [place] [id number] [place] [address] Feb, Tear of left rotator cuff, unspecified tear extent M75.102 [place] [id number] [place] [address] 28 Jan, 2016 Tear of left rotator cuff, unspecified tear extent M75.102 [place] [id number] [place] [address] 19 Jan, 2016 Tear of left rotator cuff, unspecified tear extent M75.102 [place] [id number] [place] [address] Jan, Tear of left rotator cuff, unspecified tear extent M75.102 [facility] [address] [place] [address] Jan, Tear of left rotator cuff, unspecified tear extent M75.102 [facility] [address] [place] [address] Dec, [facility] [id number] [place] [address] Dec, Tear of left rotator cuff, unspecified tear extent M75.102 [facility] [id number] [place] [address] Dec, Essential hypertension I10 ; Osteoarthritis M19.90 and Obesity E66.9 [place] [id number] [place] [address] September, Essential hypertension I10 and Obesity E66.9 [facility] [id number] [place] [address] Jun, Essential hypertension I10 ; Obesity E66.9 and Osteoarthritis M19.90 [facility] [address] [place] [address] Jun, [facility] [id number] [place] [address] May, Tear of left rotator cuff, unspecified tear extent M75.102 [facility] [address] [place] [address] May, Muscle spasm M62.838 [facility] [address] [place] [address] Apr, [facility] [address] [place] [address] Apr, Essential hypertension I10 [address] [id number] [id number] Feb, Dental examination Z01.20 and Dental caries, unspecified K02.9 [facility] [address] [facility] [id number], [place] [address] 28 Jan, 2015 Impacted cerumen of both ears 380.4 [facility] [id number] [facility] [address] [id number] [id number] 17 Jan, 2015 Dental examination V72.2 [facility] [address] [facility] [id number], [place] [address] 14 Jan, 2015 Impacted cerumen of both ears 380.4 [facility] [address] [facility] [id number], [place] [address] 02 Oct, 2014 Essential hypertension, benign 401.1 [facility] [address] [facility] [id number], [place] [address] 14 Aug, 2014 [facility] [address], [place] [address] Aug, [facility] [address] [id number], [place] [address] Jul, [facility] [address], [place] [address] Jul, [facility] [address] [id number], [place] [address] Jun, [facility] [address], [place] [address] Jun, [facility] [address] [id number], [place] [address] Mar, [facility] [address] [id number], [place] [address] Mar, [facility] [address] [id number], [place] [address] Jul, [facility] [address], [place] [address] Jul, [facility] [place] [facility] [address] [id number] [place] [address] Jun, [facility] [place] [facility] [address] [id number] [place] [address] Jun, [facility] [place] [facility] [address] [id number] [place] [address] Jun, [facility] [place] [facility] [address] [id number] [place] [address] Jun, [facility] [place] [facility] [address] [id number] [place] [address] Jun, [facility] [place] [facility] [address] [id number] [place] [address] Jun, [facility] [place] [facility] [address] [id number] [place] [address] Feb, [facility] [place] [facility] [address] [id number], [place] [address] Feb, [facility] [place] [facility] [address] [id number] [place] [address] Feb, [facility] [place] [facility] [address] [id number] [place] [address] Feb, [facility] [place] [facility] [address] [id number], [place] [address] Feb, [facility] [place] [facility] [address] [id number], [place] [address] Feb, [facility] [place] [facility] [address] [id number] [place] [address] Feb, [facility] [place] [facility] [address] [id number], [place] [address] Feb, [facility] [place] [facility] [address] [id number] [place] [address] Feb, [facility] [place] [facility] [address] [id number] [address] 04 Feb, 2013 [facility] [address], [place] [address] Jan, [facility] [address], [place] [address] Jan, [facility] [id number] [place] [address] Aug, [facility] [id number] [place] [address] Aug, [facility] [id number] [place] [address] Aug, [facility] [id number] [place] [address] Aug, [facility] [address] [place] [address] September, IMMUNIZATIONS Vaccine Route Administration Date Status DEXAMETHASONE 4MG/ML (PER 1 MG) IM Intramuscular Jan 19, 2018 Administered DEPO MEDROL 40 MG/ML IM Intramuscular Jan 19, 2018 Administered SOCIAL HISTORY Never Assessed REASON FOR VISIT Pt stated that he started having a rash began yesterday on his hands and today t he rash has worsened an is now on both arms abdomen and face and he also has swe lling that began under his eyes. EVE PLAN OF CARE Activity Details Follow Up prn Reason: Future/Pending Procedure EAR LAVAGE VITAL SIGNS Height 72 in 2018-01-19 Weight 275.2 lbs 2018-01-19 Temperature 98.0 degrees Fahrenheit 2018-01-19 Heart Rate 88 bpm 2018-01-19 Respiratory Rate 16 2018-01-19 BMI 37.32 kg/m2 2018-01-19 Blood pressure systolic 100 mmHg 2018-01-19 Blood pressure diastolic 70 mmHg 2018-01-19 MEDICATIONS Medication Instructions Dosage Frequency Start Date End Date Duration Status Lisinopril-Hydrochlorothiazide 20-25 MG TAKE ONE TABLET BY MOUTH ONCE DAILY 90 Active Hydrocortisone 2.5 % Externally Twice a day 1 application to affected area 12 13 Jan, 2018 10 days Active PredniSONE 5 MG Orally Once a day 7 on day one, decrease by one tablet daily until gone 24h Jan, 7 days Active RESULTS No Results PROCEDURES Procedure Date Ordered Result Body Site EAR IRRIGATION Jan 19, 2018 DEPO MEDROL 40 MG/ML Jan 19, 2018 DEXAMETHASONE 4MG/ML (PER 1 MG) Jan 19, 2018 THER/PROPH/DIAG INJ, SC/IM Jan 19, 2018 [facility] VISIT ESTABLISHED PATIENT Jan 19, 2018 INSTRUCTIONS MEDICATIONS ADMINISTERED No Known Medications MEDICAL [...]
--- OUTSIDE RECORDS SUMMARY | 2018-11-15 01:32 | XMS REPORT ---
Author Author BIBIANA DANGELO [facility] Address [address] [place] [address] Care Team Providers Care Software Quality Test Engineer Name Role Phone LORETO BIBIANA Unavailable PROBLEMS Type Condition ICD9-CM Code ROM83-YV Code Onset Dates Condition Status SNOMED Code Problem Osteoarthritis M19.90 Active 769347865 Problem Pain of left calf M79.662 Active 2936042150847211 Problem Morbid (severe) obesity due to excess calories E66.01 Active 185137067 Problem Mixed hyperlipidemia E78.2 Active 819085933 Problem Medicare annual wellness visit, subsequent Z00.00 Active 441363405 Problem Essential hypertension I10 Active 01081681 Problem Body mass index (BMI) of 40.0-44.9 in adult Z68.41 Active 979479218 Problem Facial droop R29.810 Active 24046061 ALLERGIES No Information ENCOUNTERS Encounter Location Date Diagnosis [facility] [address] [address] 13 Jan, 2018 Dermatitis L30.9 and Bilateral impacted cerumen H61.23 [facility] [id number] [place] [address] Dec, [facility] [address] [address] Nov, [facility] [id number] [place] [address] Oct, [facility] [address] [address] September, Pain of left calf M79.662 [facility] [id number] [place] [address] Aug, Pain of left calf M79.662 [facility] [id number] [place] [address] 02 Aug, 2017 Essential hypertension I10 ; Osteoarthritis M19.90 ; Body mass index (BMI) of 40.0-44.9 in adult Z68.41 ; Morbid (severe) obesity due to excess calories E66.01 ; Mixed hyperlipidemia E78.2 and Facial droop R29.810 [place] [address] [address] Jun, Encounter for immunization Z23 [place] [address] [address] Jun, Pain of left calf M79.662 [place] [address] [address] 15 Jun, 2017 Medicare annual wellness visit, initial Z00.00 ; Essential hypertension I10 ; Osteoarthritis M19.90 ; Encounter for immunization Z23 and Body mass index (BMI) of 38.0-38.9 in adult Z68.38 [place] [address] [address] May, Pain of left calf M79.662 [place] [address] [address] May, Pain of left calf M79.662 [facility] [id number] [place] [address] May, Acute nasopharyngitis J00 [facility] [address] [address] Mar, Pain of left calf M79.662 [facility] [address] [address] Feb, Cramps of left lower extremity R25.2 [place] [address] [address] Feb, Cramps of left lower extremity R25.2 [facility] [address] [facility] [id number], [place] [address] Feb, [facility] [address] [facility] [id number] [place] [address] Jan, Cramps of left lower extremity R25.2 [facility] [address] [id number], [place] [address] Nov, [facility] [address] [facility] [id number] [place] [address] Nov, [facility] [address] [facility] [id number], [place] [address] Nov, Pain of left calf M79.662 [facility] [id number] [place] [address] Oct, [facility] [id number] [place] [address] Oct, [facility] [address] [id number], [place] [address] Oct, Essential hypertension I10 ; Cramps of left lower extremity R25.2 and Morbid (severe) obesity due to excess calories E66.01 [facility] [address], [place] [address] Oct, Cramps of left lower extremity R25.2 ; Essential hypertension I10 and Morbid (severe) obesity due to excess calories E66.01 [facility] [address] [facility] [id number], [place] [address] Aug, [facility] [address] [id number] [address] Aug, Cramps of left lower extremity R25.2 [facility] [address] [id number], [place] [address] Jul, Pain in left shoulder M25.512 [facility] [id number] [address] Jul, Tear of left rotator cuff, unspecified tear extent M75.102 [facility] [address], [place] [address] 15 Jun, 2016 Pain in left shoulder M25.512 [facility] [address], [place] [address] 09 Jun, 2016 Essential hypertension I10 ; Pain in left shoulder M25.512 and Morbid (severe) obesity due to excess calories E66.01 [facility] [id number] [place] [address] May, Pain in left shoulder M25.512 [facility] [id number] [place] [address] May, Tear of left rotator cuff, unspecified tear extent M75.102 [place] [id number] [place] [address] Apr, Medicare annual wellness visit, subsequent Z00.00 ; Body mass index (BMI) of 40.0-44.9 in adult Z68.41 ; Morbid (severe) obesity due to excess calories E66.01 ; Essential hypertension I10 ; Pain in left shoulder M25.512 and Other chronic pain G89.29 [place] [address], [place] [address] Apr, Osteoarthritis M19.90 [facility] [id number] [place] [address] Apr, Tear of left rotator cuff, unspecified tear extent M75.102 [facility] [address] [place] [address] Apr, Tear of left rotator cuff, unspecified tear extent M75.102 [facility] [address], [place] [address] Mar, Tear of left rotator cuff, unspecified tear extent M75.102 [facility] [id number] [place] [address] Mar, Tear of left rotator cuff, unspecified tear extent M75.102 [place] [id number] [place], [place] [id number] Mar, Tear of left rotator cuff, unspecified tear extent M75.102 [place] [id number] [place] [address] Mar, Tear of left rotator cuff, unspecified tear extent M75.102 [place] [address] [address] Mar, Essential hypertension I10 ; Obesity E66.9 and Bacterial conjunctivitis of both eyes H10.9 [place] [id number] [place] [address] 31 Feb, 2016 Tear of left rotator cuff, unspecified tear extent M75.102 [place] [address] [address] Feb, Tear of left rotator cuff, unspecified tear extent M75.102 [place] [id number] [place] [address] Feb, Tear of left rotator cuff, unspecified tear extent M75.102 [place] [id number] [place] [address] Feb, Tear of left rotator cuff, unspecified tear extent M75.102 [place] [id number] [place] [address] 28 Jan, 2016 Tear of left rotator cuff, unspecified tear extent M75.102 [place] [id number] [place] [address] 19 Jan, 2016 Tear of left rotator cuff, unspecified tear extent M75.102 [place] [id number] [place] [address] 06 Jan, 2016 Tear of left rotator cuff, unspecified tear extent M75.102 [facility] [address], [place] [address] Jan, Tear of left rotator cuff, unspecified tear extent M75.102 [facility] [address] [place] [address] Dec, [facility] [id number] [place] [address] Dec, Tear of left rotator cuff, unspecified tear extent M75.102 [facility] [address] [place] [address] Dec, Essential hypertension I10 ; Osteoarthritis M19.90 and Obesity E66.9 [facility] [id number] [place] [address] September, Essential hypertension I10 and Obesity E66.9 [facility] [id number] [place] [address] Jun, Essential hypertension I10 ; Obesity E66.9 and Osteoarthritis M19.90 [facility] [address] [place] [address] Jun, [facility] [address] [place] [address] May, Tear of left rotator cuff, unspecified tear extent M75.102 [facility] [id number] [place] [address] May, Muscle spasm M62.838 [facility] [address] [place] [address] Apr, [facility] [id number] [place] [address] Apr, Essential hypertension I10 [place] [id number] [facility] [id number] [id number] Feb, Dental examination Z01.20 and Dental caries, unspecified K02.9 [facility] [address] [facility] [id number], [place] [address] 28 Jan, 2015 Impacted cerumen of both ears 380.4 [facility] [employer] [id number] [id number] 17 Jan, 2015 Dental examination V72.2 [facility] [address] [facility] [id number], [place] [address] 14 Jan, 2015 Impacted cerumen of both ears 380.4 [facility] [address] [facility] [id number], [place] [address] 02 Oct, 2014 Essential hypertension, benign 401.1 [facility] [id number] [place] [address] 14 Aug, 2014 [facility] [address], [place] [address] Aug, [facility] [address] [place] [address] Jul, [facility] [id number], [place] [address] Jul, [facility] [address] [place] [address] Jun, [facility] [address], [place] [address] Jun, [facility] [id number], [place] [address] Mar, [facility] [id number], [place] [address] Mar, [facility] [address], [place] [address] Jul, [facility] [id number], [place] [address] Jul, [facility] [address], [place] [address] Jun, 2013 [facility] [place] [facility] [address] [id number] [place] [address] Jun, 2013 [facility] [place] [facility] [address] [id number] [place] [address] Jun, 2013 [facility] [place] [facility] [address] [id number] [place] [address] Jun, 2013 [facility] [place] [facility] [address] [id number] [place] [address] Jun, 2013 [facility] [place] [facility] [address] [id number] [place] [address] Jun, 2013 [facility] [place] [facility] [address] [id number] [place] [address] Feb, [facility] [place] [facility] [address] [id number] [place] [address] Feb, [facility] [place] [facility] [address] [id number] [place] [address] Feb, [facility] [place] [facility] [address] [id number] [place] [address] Feb, [facility] [place] [facility] [address] [id number] [place] [address] Feb, [facility] [place] [facility] [address] [id number] [place] [address] Feb, [facility] [place] [facility] [address] [id number], [place] [address] 08 Feb, 2013 [facility] [place] [facility] [address] [id number] [place] [address] Feb, [facility] [place] [facility] [address] [id number] [place] [address] 05 Feb, 2013 [facility] [place] [facility] [address] [id number], [place] [address] Feb, [facility] [id number], [place] [address] 10 Jan, 2012 [facility] [address], [place] [address] 07 Jan, 2012 [facility] [address], [place] [address] 23 Aug, 2011 [facility] [address], [place] [address] Aug, [facility] [address], [place] [address] Aug, [facility] [address], [place] [address] Aug, [facility] [address], [place] [address] September, IMMUNIZATIONS No Known Immunizations SOCIAL HISTORY Never Assessed REASON FOR VISIT PT follow-up PLAN OF CARE Activity Details Follow Up 3 Weeks Reason:F/U PT VITAL SIGNS MEDICATIONS No Known Medications RESULTS No Results PROCEDURES Procedure Date Ordered Result Body Site THERAPEUTIC EXERCISES September 12, 2017 INSTRUCTIONS MEDICATIONS ADMINISTERED No Known Medications [...]
--- OUTSIDE RECORDS SUMMARY | 2018-11-15 01:33 | XMS REPORT ---
Author Author ELINA UMM [facility] Address [address] [place] [address] Care Team Providers Care Professor Of Theater Name Role Phone UMM ANTOINE Unavailable PROBLEMS Type Condition ICD9-CM Code ANA26-QF Code Onset Dates Condition Status SNOMED Code Problem Osteoarthritis M19.90 Active 564058004 Problem Pain of left calf M79.662 Active 4136259589002895 Problem Morbid (severe) obesity due to excess calories E66.01 Active 673960788 Problem Mixed hyperlipidemia E78.2 Active 543918023 Problem Medicare annual wellness visit, subsequent Z00.00 Active 087279053 Problem Essential hypertension I10 Active 62743876 Problem Body mass index (BMI) of 40.0-44.9 in adult Z68.41 Active 769671242 Problem Facial droop R29.810 Active 86354192 ALLERGIES No Known Allergies ENCOUNTERS Encounter Location Date Diagnosis [facility] [id number] [place] [address] Dec, [facility] [id number] [place] [address] Nov, [facility] [id number] [place] [address] Oct, [facility] [id number] [place] [address] September, [facility] [id number] [place] [address] Aug, [facility] [id number] [place] [address] Aug, Essential hypertension I10 ; Osteoarthritis M19.90 ; Body mass index (BMI) of 40.0-44.9 in adult Z68.41 ; Morbid (severe) obesity due to excess calories E66.01 ; Mixed hyperlipidemia E78.2 and Facial droop R29.810 [place] [id number] [address] Jun, Encounter for immunization Z23 [facility] [address] [address] Jun, Pain of left calf M79.662 [place] [address] [address] Jun, Medicare annual wellness visit, initial Z00.00 ; Essential hypertension I10 ; Osteoarthritis M19.90 ; Encounter for immunization Z23 and Body mass index (BMI) of 38.0-38.9 in adult Z68.38 [place] [address] [address] May, Pain of left calf M79.662 [place] [address] [address] May, Pain of left calf M79.662 [facility] [address] [address] May, Acute nasopharyngitis J00 [place] [address] [address] Mar, Pain of left calf M79.662 [facility] [address] [address] Feb, Cramps of left lower extremity R25.2 [place] [id number] [place] [address] Feb, Cramps of left lower extremity R25.2 [facility] [address] [address] Feb, [facility] [address] [address] Jan, Cramps of left lower extremity R25.2 [facility] [id number] [address] Nov, [facility] [address] [address] Nov, [facility] [address] [address] Nov, Pain of left calf M79.662 [facility] [address] [address] Oct, [facility] [address] [place] [address] Oct, [facility] [address] [address] Oct, Essential hypertension I10 ; Cramps of left lower extremity R25.2 and Morbid (severe) obesity due to excess calories E66.01 [facility] [address] [address] Oct, Cramps of left lower extremity R25.2 ; Essential hypertension I10 and Morbid (severe) obesity due to excess calories E66.01 [facility] [address] [address] Aug, [facility] [address] [address] Aug, Cramps of left lower extremity R25.2 [facility] [address] [address] Jul, Pain in left shoulder M25.512 [facility] [id number] [address] Jul, Tear of left rotator cuff, unspecified tear extent M75.102 [facility] [address] [address] Jun, Pain in left shoulder M25.512 [facility] [address] [address] Jun, Essential hypertension I10 ; Pain in left shoulder M25.512 and Morbid (severe) obesity due to excess calories E66.01 [place] [address] [place] [address] May, Pain in left shoulder M25.512 [place] [id number] [place] [address] May, Tear of left rotator cuff, unspecified tear extent M75.102 [place] [id number] [place] [address] Apr, Medicare annual wellness visit, subsequent Z00.00 ; Body mass index (BMI) of 40.0-44.9 in adult Z68.41 ; Morbid (severe) obesity due to excess calories E66.01 ; Essential hypertension I10 ; Pain in left shoulder M25.512 and Other chronic pain G89.29 [place] [id number] [place] [address] Apr, Osteoarthritis M19.90 [place] [id number] [place] [address] Apr, Tear of left rotator cuff, unspecified tear extent M75.102 [place] [address] [place] [address] Apr, Tear of left rotator cuff, unspecified tear extent M75.102 [place] [address] [place] [address] Mar, Tear of left rotator cuff, unspecified tear extent M75.102 [place] [id number] [place] [address] Mar, Tear of left rotator cuff, unspecified tear extent M75.102 [place] [id number] [place] [address] Mar, Tear of left rotator cuff, unspecified tear extent M75.102 [facility] [id number] [place] [address] Mar, Tear of left rotator cuff, unspecified tear extent M75.102 [facility] [id number] [place] [address] Mar, Essential hypertension I10 ; Obesity E66.9 and Bacterial conjunctivitis of both eyes H10.9 [facility] [id number] [place] [address] Feb, Tear of left rotator cuff, unspecified tear extent M75.102 [place] [address] [place] [address] [id number] Feb, Tear of left rotator cuff, unspecified tear extent M75.102 [place] [address] [place] [address] Feb, Tear of left rotator cuff, unspecified tear extent M75.102 [place] [id number] [place] [address] Feb, Tear of left rotator cuff, unspecified tear extent M75.102 [place] [id number] [place] [address] Jan, Tear of left rotator cuff, unspecified tear extent M75.102 [place] [id number] [place] [address] Jan, Tear of left rotator cuff, unspecified tear extent M75.102 [place] [id number] [place] [address] 06 Jan, 2016 Tear of left rotator cuff, unspecified tear extent M75.102 [facility] [id number] [place] [address] Jan, Tear of left rotator cuff, unspecified tear extent M75.102 [place] [id number] [place] [address] Dec, [facility] [id number] [place] [address] Dec, Tear of left rotator cuff, unspecified tear extent M75.102 [facility] [id number] [place] [address] Dec, Essential hypertension I10 ; Osteoarthritis M19.90 and Obesity E66.9 [place] [id number] [place] [address] September, Essential hypertension I10 and Obesity E66.9 [place] [address] [address] Jun, Essential hypertension I10 ; Obesity E66.9 and Osteoarthritis M19.90 [place] [id number] [place] [address] Jun, [place] [id number] [place] [address] May, Tear of left rotator cuff, unspecified tear extent M75.102 [place] [id number] [place] [address] May, Muscle spasm M62.838 [place] [id number] [place] [address] Apr, [place] [id number] [place] [address] Apr, Essential hypertension I10 [facility] [address] [facility] [address] [id number] [id number] Feb, Dental examination Z01.20 and Dental caries, unspecified K02.9 [facility] [address] [place] [address] Jan, Impacted cerumen of both ears 380.4 [facility] [address] [id number] [id number] 17 Jan, 2015 Dental examination V72.2 [facility] [address] [address] 14 Jan, 2015 Impacted cerumen of both ears 380.4 [facility] [id number] [address] 02 Oct, 2014 Essential hypertension, benign 401.1 [facility] [id number] [place] [address] 14 Aug, 2014 [facility] [id number] [place] [address] Aug, [facility] [id number] [place] [address] Jul, [facility] [id number] [place] [address] Jul, [facility] [id number] [place] [address] Jun, [facility] [address] [place] [address] Jun, [facility] [address] [place] [address] Mar, [facility] [address] [address] Mar, [facility] [address] [place] [address] Jul, [facility] [address] [address] Jul, [facility] [id number] [place] [address] Jun, [facility] [address] [address] Jun, [facility] [id number] [place] [address] Jun, 2013 [facility] [place] [facility] [address] [id number] [place] [address] Jun, 2013 [facility] [place] [facility] [address] [id number] [place] [address] Jun, 2013 [facility] [place] [facility] [address] [id number] [place] [address] Jun, [facility] [place] [facility] [address] [id number] [place] [address] Feb, [facility] [place] [facility] [address] [id number] [place] [address] Feb, [facility] [place] [facility] [address] [id number] [place] [address] Feb, [facility] [place] [facility] [address] [id number] [place] [address] Feb, [facility] [place] [facility] [address] [id number] [place] [address] Feb, [facility] [place] [facility] [address] [id number] [place] [address] Feb, [facility] [place] [facility] [address] [facility] [id number] [place] [address] Feb, [facility] [place] [facility] [address] [id number] [place] [address] 07 Feb, 2013 [facility] [place] [facility] [address] [id number] [address] 05 Feb, 2013 [facility] [place] [facility] [address] [id number] [place] [address] 04 Feb, 2013 [facility] [place] [facility] [address] [id number] [place] [address] 10 Jan, 2011 [facility] [place] [facility] [address] [id number] [address] 07 Jan, 2012 [facility] [address] [facility] [id number] [address] Aug, [facility] [address] [facility] [id number] [address] Aug, [facility] [address] [facility] [id number] [address] Aug, [facility] [address] [facility] [id number] [address] Aug, [facility] [address] [facility] [id number] [address] September, IMMUNIZATIONS No Known Immunizations SOCIAL HISTORY Never Assessed REASON FOR VISIT Hypertension follow up-Lynn PLAN OF CARE Activity Details Follow Up 3 Months Reason:CHM/HTN VITAL SIGNS Height 72 in 2017-08-08 Weight 295.4 lbs 2017-08-08 Temperature 97.1 degrees Fahrenheit 2017-08-08 Heart Rate 66 bpm 2017-08-08 Respiratory Rate 20 2017-08-08 BMI 40.06 kg/m2 2017-08-08 Blood pressure systolic 116 mmHg 2017-08-08 Blood pressure diastolic 80 mmHg 2017-08-08 MEDICATIONS Medication Instructions Dosage Frequency Start Date End Date Duration Status Lisinopril-Hydrochlorothiazide 20-25 MG TAKE ONE TABLET BY MOUTH ONCE DAILY 90 Active Atorvastatin Calcium 10 mg Orally Once a day 1 tablet 24h Oct, 90 days Not-Taking RESULTS No Results PROCEDURES Procedure Date Ordered Result Body Site LAB NOT BILLED BY [facility] August 08, 2017 [facility] VISIT ESTABLISHED PATIENT August 08, 2017 INSTRUCTIONS MEDICATIONS ADMINISTERED No Known Medications MEDICAL (GENERAL) HISTORY Type Description Date Medical History obesity Medical History seasonal allergies Medical History benign essential hypertension Surgical History neuroplasty w/ transposition of median nerve at carpal tunnel 2006---right wrist 2005 Surgical History cataract removal Surgical History Colonoscopy 07/2017 Hospitalization History pulled muscle, thought it was appendix @ age 17
--- OUTSIDE RECORDS SUMMARY | 2018-11-15 01:33 | XMS REPORT ---
Author Author BIBIANA DANGELO [facility] Address [address] [place] [address] Care Team Providers Care Director Product Development Name Role Phone LORETORYANNAN Unavailable PROBLEMS Type Condition ICD9-CM Code FGA40-UO Code Onset Dates Condition Status SNOMED Code Problem Osteoarthritis M19.90 Active 676403167 Problem Pain of left calf M79.662 Active 8506149794962291 Problem Morbid (severe) obesity due to excess calories E66.01 Active 626515499 Problem Mixed hyperlipidemia E78.2 Active 263015631 Problem Medicare annual wellness visit, subsequent Z00.00 Active 685664658 Problem Essential hypertension I10 Active 30713695 Problem Body mass index (BMI) of 40.0-44.9 in adult Z68.41 Active 621280789 Problem Facial droop R29.810 Active 33533572 ALLERGIES No Information ENCOUNTERS Encounter Location Date Diagnosis [facility] [id number] [place] [address] Dec, [facility] [id number] [place] [address] Nov, [facility] [id number] [place] [address] Oct, [facility] [id number] [place] [address] September, [facility] [address] [address] Aug, [facility] [address] [address] Aug, Essential hypertension I10 ; Osteoarthritis M19.90 ; Body mass index (BMI) of 40.0-44.9 in adult Z68.41 ; Morbid (severe) obesity due to excess calories E66.01 ; Mixed hyperlipidemia E78.2 and Facial droop R29.810 [place] [id number] [address] Jun, Encounter for immunization Z23 [facility] [id number] [place] [address] Jun, Pain of left calf M79.662 [facility] [address] [address] 15 Jun, 2017 Medicare annual wellness visit, initial Z00.00 ; Essential hypertension I10 ; Osteoarthritis M19.90 ; Encounter for immunization Z23 and Body mass index (BMI) of 38.0-38.9 in adult Z68.38 [place] [address] [address] May, Pain of left calf M79.662 [place] [address] [address] May, Pain of left calf M79.662 [facility] [address] [address] May, Acute nasopharyngitis J00 [facility] [id number] [place] [address] Mar, Pain of left calf M79.662 [facility] [address] [address] Feb, Cramps of left lower extremity R25.2 [facility] [id number] [place] [address] Feb, Cramps of left lower extremity R25.2 [facility] [id number] [place] [address] Feb, [facility] [id number] [place] [address] Jan, Cramps of left lower extremity R25.2 [facility] [address] [address] Nov, [facility] [address] [address] Nov, [facility] [address] [address] Nov, Pain of left calf M79.662 [facility] [id number] [address] Oct, [facility] [id number] [place] [address] Oct, [facility] [address] [address] Oct, Essential hypertension I10 ; Cramps of left lower extremity R25.2 and Morbid (severe) obesity due to excess calories E66.01 [facility] [address] [address] Oct, Cramps of left lower extremity R25.2 ; Essential hypertension I10 and Morbid (severe) obesity due to excess calories E66.01 [facility] [address] [address] Aug, [facility] [address] [address] Aug, Cramps of left lower extremity R25.2 [facility] [address] [address] Jul, Pain in left shoulder M25.512 [facility] [id number] [address] Jul, Tear of left rotator cuff, unspecified tear extent M75.102 [facility] [address] [address] Jun, Pain in left shoulder M25.512 [facility] [address] [address] Jun, Essential hypertension I10 ; Pain in left shoulder M25.512 and Morbid (severe) obesity due to excess calories E66.01 [place] [id number] [place] [address] May, Pain in left shoulder M25.512 [place] [id number] [place] [address] May, Tear of left rotator cuff, unspecified tear extent M75.102 [place] [address] [address] Apr, Medicare annual wellness visit, subsequent Z00.00 ; Body mass index (BMI) of 40.0-44.9 in adult Z68.41 ; Morbid (severe) obesity due to excess calories E66.01 ; Essential hypertension I10 ; Pain in left shoulder M25.512 and Other chronic pain G89.29 [place] [id number] [place] [address] Apr, Osteoarthritis M19.90 [place] [id number] [place] [address] Apr, Tear of left rotator cuff, unspecified tear extent M75.102 [place] [id number] [place] [address] Apr, Tear of left rotator cuff, unspecified tear extent M75.102 [place] [id number] [place] [address] Mar, Tear of left rotator cuff, unspecified tear extent M75.102 [place] [id number] [place] [address] Mar, Tear of left rotator cuff, unspecified tear extent M75.102 [place] [id number] [place] [address] Mar, Tear of left rotator cuff, unspecified tear extent M75.102 [facility] [id number] [place] [address] Mar, Tear of left rotator cuff, unspecified tear extent M75.102 [facility] [id number] [place] [address] Mar, Essential hypertension I10 ; Obesity E66.9 and Bacterial conjunctivitis of both eyes H10.9 [facility] [id number] [place] [address] Feb, Tear of left rotator cuff, unspecified tear extent M75.102 [place] [id number] [place] [address] Feb, Tear of left rotator cuff, unspecified tear extent M75.102 [place] [id number] [place] [address] Feb, Tear of left rotator cuff, unspecified tear extent M75.102 [place] [id number] [place] [address] Feb, Tear of left rotator cuff, unspecified tear extent M75.102 [place] [id number] [place] [address] Jan, Tear of left rotator cuff, unspecified tear extent M75.102 [place] [id number] [place] [address] Jan, Tear of left rotator cuff, unspecified tear extent M75.102 [place] [id number] [place] [address] 06 Jan, 2016 Tear of left rotator cuff, unspecified tear extent M75.102 [facility] [id number] [place] [address] Jan, Tear of left rotator cuff, unspecified tear extent M75.102 [place] [id number] [place] [address] Dec, [facility] [address] [place] [address] Dec, Tear of left rotator cuff, unspecified tear extent M75.102 [facility] [address] [address] Dec, Essential hypertension I10 ; Osteoarthritis M19.90 and Obesity E66.9 [facility] [id number] [place] [address] September, Essential hypertension I10 and Obesity E66.9 [place] [id number] [place] [address] Jun, Essential hypertension I10 ; Obesity E66.9 and Osteoarthritis M19.90 [place] [id number] [place] [address] Jun, [place] [id number] [place] [address] May, Tear of left rotator cuff, unspecified tear extent M75.102 [place] [id number] [place] [address] May, Muscle spasm M62.838 [place] [id number] [place] [address] Apr, [place] [id number] [place] [address] Apr, Essential hypertension I10 [facility] [address] [id number] [id number] Feb, Dental examination Z01.20 and Dental caries, unspecified K02.9 [facility] [id number] [address] Jan, Impacted cerumen of both ears 380.4 [facility] [address] [id number] [id number] Jan, Dental examination V72.2 [facility] [address] [address] 14 Jan, 2015 Impacted cerumen of both ears 380.4 [facility] [address] [address] 02 Oct, 2014 Essential hypertension, benign 401.1 [facility] [id number] [place] [address] 14 Aug, 2014 [facility] [id number] [place] [address] Aug, [facility] [id number] [place] [address] Jul, [facility] [id number] [place] [address] Jul, [facility] [id number] [place] [address] Jun, [facility] [address] [place] [address] Jun, [facility] [address] [place] [address] Mar, [facility] [address] [address] Mar, [facility] [address] [address] Jul, [facility] [address] [address] Jul, [facility] [id number] [place] [address] Jun, [facility] [address] [address] Jun, [facility] [id number] [place] [address] Jun, 2013 [facility] [place] [facility] [address] [id number] [place] [address] Jun, [facility] [place] [facility] [address] [id number] [place] [address] Jun, 2013 [facility] [place] [facility] [address] [id number] [place] [address] Jun, [facility] [place] [facility] [address] [id number] [place] [address] Feb, [facility] [place] [facility] [address] [id number] [place] [address] Feb, [facility] [place] [facility] [address] [id number] [place] [address] Feb, [facility] [place] [facility] [address] [id number] [place] [address] Feb, 2012 [facility] [place] [facility] [address] [id number] [place] [address] Feb, [facility] [place] [facility] [address] [facility] [id number] [place] [address] Feb, [facility] [place] [facility] [address] [facility] [id number] [place] [address] Feb, [facility] [place] [facility] [address] [id number] [place] [address] 07 Feb, 2012 [facility] [place] [facility] [address] [id number] [address] 05 Feb, 2013 [facility] [place] [facility] [address] [id number] [address] 04 Feb, 2013 [facility] [place] [facility] [address] [id number] [address] 10 Jan, 2011 [facility] [place] [facility] [address] [facility] [id number] [address] 07 Jan, 2011 [facility] [place] [facility] [address] [facility] [id number] [place] [address] Aug, [facility] [address] [facility] [id number] [address] Aug, [facility] [id number] [address] Aug, [facility] [address] [facility] [id number] [address] Aug, [facility] [address] [facility] [id number] [place] [address] September, IMMUNIZATIONS No Known Immunizations SOCIAL HISTORY Never Assessed REASON FOR VISIT PT follow-up PLAN OF CARE Activity Details Follow Up 3 Weeks Reason:F/U PT VITAL SIGNS MEDICATIONS Unknown Medications RESULTS No Results PROCEDURES Procedure Date Ordered Result Body Site THERAPEUTIC EXERCISES Jun 01, 2017 INSTRUCTIONS MEDICATIONS ADMINISTERED No Known Medications [...]
--- OUTSIDE RECORDS SUMMARY | 2018-11-15 01:33 | XMS REPORT ---
Author Author BIBIANA DANGELO [facility] Address [address] [place] [address] Care Team Providers Care Mining Analyst Name Role Phone LORETORYANNAN Unavailable PROBLEMS Type Condition ICD9-CM Code GIM03-LD Code Onset Dates Condition Status SNOMED Code Problem Osteoarthritis M19.90 Active 267902769 Problem Pain of left calf M79.662 Active 7375623145740596 Problem Morbid (severe) obesity due to excess calories E66.01 Active 279831831 Problem Mixed hyperlipidemia E78.2 Active 154376283 Problem Medicare annual wellness visit, subsequent Z00.00 Active 591883302 Problem Essential hypertension I10 Active 20920952 Problem Body mass index (BMI) of 40.0-44.9 in adult Z68.41 Active 262677613 Problem Facial droop R29.810 Active 19383531 ALLERGIES No Information ENCOUNTERS Encounter Location Date Diagnosis [facility] [id number] [place] [address] Dec, [facility] [id number] [place] [address] Nov, [facility] [id number] [place] [address] Oct, [facility] [id number] [place] [address] September, Pain of left calf M79.662 [facility] [address] [address] Aug, Pain of left calf M79.662 [facility] [id number] [place] [address] Aug, Essential hypertension I10 ; Osteoarthritis M19.90 ; Body mass index (BMI) of 40.0-44.9 in adult Z68.41 ; Morbid (severe) obesity due to excess calories E66.01 ; Mixed hyperlipidemia E78.2 and Facial droop R29.810 [place] [address] [address] Jun, Encounter for immunization Z23 [facility] [address] [address] Jun, Pain of left calf M79.662 [place] [address] [address] 15 Jun, 2017 Medicare annual wellness visit, initial Z00.00 ; Essential hypertension I10 ; Osteoarthritis M19.90 ; Encounter for immunization Z23 and Body mass index (BMI) of 38.0-38.9 in adult Z68.38 [place] [address] [address] May, Pain of left calf M79.662 [place] [address] [address] May, Pain of left calf M79.662 [facility] [address] [address] May, Acute nasopharyngitis J00 [facility] [address] [address] Mar, Pain of left calf M79.662 [facility] [address] [address] Feb, Cramps of left lower extremity R25.2 [place] [address] [address] Feb, Cramps of left lower extremity R25.2 [facility] [address] [address] Feb, [facility] [address] [address] Jan, Cramps of left lower extremity R25.2 [facility] [address] [address] Nov, [facility] [address] [address] Nov, [facility] [address] [place] [address] Nov, Pain of left calf M79.662 [facility] [address] [address] Oct, [facility] [address] [place] [address] Oct, [facility] [address] [place] [address] Oct, Essential hypertension I10 ; Cramps of left lower extremity R25.2 and Morbid (severe) obesity due to excess calories E66.01 [facility] [address] [address] Oct, Cramps of left lower extremity R25.2 ; Essential hypertension I10 and Morbid (severe) obesity due to excess calories E66.01 [facility] [address] [address] Aug, [facility] [address] [place] [address] Aug, Cramps of left lower extremity R25.2 [facility] [address] [address] Jul, Pain in left shoulder M25.512 [facility] [address] [address] Jul, Tear of left rotator cuff, unspecified tear extent M75.102 [facility] [id number] [place] [address] Jun, Pain in left shoulder M25.512 [place] [address], [place] [address] Jun, Essential hypertension I10 ; Pain in left shoulder M25.512 and Morbid (severe) obesity due to excess calories E66.01 [place] [address], [place] [address] May, Pain in left shoulder M25.512 [place] [id number] [address] May, Tear of left rotator cuff, unspecified tear extent M75.102 [place] [id number] [place] [address] Apr, Medicare annual wellness visit, subsequent Z00.00 ; Body mass index (BMI) of 40.0-44.9 in adult Z68.41 ; Morbid (severe) obesity due to excess calories E66.01 ; Essential hypertension I10 ; Pain in left shoulder M25.512 and Other chronic pain G89.29 [place] [address] [place] [address] Apr, Osteoarthritis M19.90 [place] [id number] [place] [address] Apr, Tear of left rotator cuff, unspecified tear extent M75.102 [place] [address], [place] [address] Apr, Tear of left rotator cuff, unspecified tear extent M75.102 [place] [address] [place] [address] Mar, Tear of left rotator cuff, unspecified tear extent M75.102 [place] [address], [place] [address] Mar, Tear of left rotator cuff, unspecified tear extent M75.102 [place] [id number] [place] [address] Mar, Tear of left rotator cuff, unspecified tear extent M75.102 [place] [address] [place] [address] [address] Mar, Tear of left rotator cuff, unspecified tear extent M75.102 [place] [address] [place] [address] [address] Mar, Essential hypertension I10 ; Obesity E66.9 and Bacterial conjunctivitis of both eyes H10.9 [place] [address] [place] [address] Feb, Tear of left rotator cuff, unspecified tear extent M75.102 [place] [id number] [place] [address] Feb, Tear of left rotator cuff, unspecified tear extent M75.102 [place] [address] [address] Feb, Tear of left rotator cuff, unspecified tear extent M75.102 [place] [address] [place] [address] Feb, Tear of left rotator cuff, unspecified tear extent M75.102 [place] [id number] [place] [address] Jan, Tear of left rotator cuff, unspecified tear extent M75.102 [place] [id number] [place] [address] Jan, Tear of left rotator cuff, unspecified tear extent M75.102 [place] [address] [place] [address] Jan, Tear of left rotator cuff, unspecified tear extent M75.102 [place] [id number] [place] [address] Jan, Tear of left rotator cuff, unspecified tear extent M75.102 [place] [address] [place] [address] Dec, [place] [id number] [place] [address] Dec, Tear of left rotator cuff, unspecified tear extent M75.102 [facility] [address] [place] [address] Dec, Essential hypertension I10 ; Osteoarthritis M19.90 and Obesity E66.9 [place] [id number] [place] [address] September, Essential hypertension I10 and Obesity E66.9 [place] [id number] [place] [address] Jun, Essential hypertension I10 ; Obesity E66.9 and Osteoarthritis M19.90 [place] [id number] [place] [address] Jun, [place] [id number] [place] [address] May, Tear of left rotator cuff, unspecified tear extent M75.102 [place] [address] [place] [address] May, Muscle spasm M62.838 [place] [address] [place] [address] Apr, [place] [address] [place] [address] Apr, Essential hypertension I10 [facility] [address] [id number] [id number] Feb, Dental examination Z01.20 and Dental caries, unspecified K02.9 [facility] [id number] [address] Jan, Impacted cerumen of both ears 380.4 [facility] [address] [id number] [id number] 17 Jan, 2015 Dental examination V72.2 [facility] [address] [place] [address] 14 Jan, 2015 Impacted cerumen of both ears 380.4 [facility] [address], [place] [address] 02 Oct, 2014 Essential hypertension, benign 401.1 [facility] [address], [place] [address] 14 Aug, 2014 [facility] [id number] [place] [address] Aug, [facility] [id number] [address] Jul, [facility] [id number] [place] [address] Jul, [facility] [address], [place] [address] Jun, [facility] [address], [place] [address] Jun, [facility] [address], [place] [address] Mar, [facility] [address] [place] [address] Mar, [facility] [address], [place] [address] Jul, [facility] [address] [place] [address] Jul, [facility] [address], [place] [address] Jun, [facility] [id number] [address] Jun, [facility] [place] [facility] [address] [id number] [place] [address] Jun, 2013 [facility] [place] [facility] [address] [id number] [place] [address] Jun, 2013 [facility] [place] [facility] [address] [id number] [place] [address] Jun, [facility] [place] [facility] [address] [id number] [place] [address] Jun, [facility] [place] [facility] [address] [id number] [place] [address] Feb, [facility] [place] [facility] [address] [id number] [place] [address] Feb, [facility] [place] [facility] [address] [id number] [place] [address] Feb, [facility] [place] [facility] [address] [id number] [address] Feb, [facility] [place] [facility] [address] [id number] [place] [address] Feb, [facility] [place] [facility] [address] [id number] [address] Feb, [facility] [place] [facility] [address] [facility] [id number], [place] [address] Feb, [facility] [place] [facility] [address] [id number], [place] [address] Feb, [facility] [place] [facility] [address] [id number], [place] [address] 05 Feb, 2013 [facility] [place] [facility] [address] [id number], [place] [address] 04 Feb, 2013 [facility] [place] [facility] [address] [id number], [place] [address] 10 Jan, 2012 [facility] [place] [facility] [address] [id number], [place] [address] Jan, [facility] [address] [facility] [id number], [place] [address] Aug, [facility] [id number] [address] Aug, [facility] [address] [facility] [id number], [place] [address] Aug, [facility] [id number], [place] [address] Aug, [facility] [address] [facility] [id number], [place] [address] September, IMMUNIZATIONS No Known Immunizations SOCIAL HISTORY Never Assessed REASON FOR VISIT PT follow-up PLAN OF CARE Activity Details Follow Up 3 Weeks Reason:F/U PT VITAL SIGNS MEDICATIONS Unknown Medications RESULTS No Results PROCEDURES Procedure Date Ordered Result Body Site THERAPEUTIC EXERCISES Jun 27, 2017 INSTRUCTIONS MEDICATIONS ADMINISTERED No Known Medications [...]
--- OUTSIDE RECORDS SUMMARY | 2018-11-15 01:34 | XMS REPORT ---
Author Author BIBIANA DANGELO [facility] Address [address] [place] [address] Care Team Providers Care Steam Fitter Name Role Phone LORETO BIBIANA Unavailable PROBLEMS Type Condition ICD9-CM Code THM87-MY Code Onset Dates Condition Status SNOMED Code Problem Osteoarthritis M19.90 Active 824202190 Problem Pain of left calf M79.662 Active 4507295594462437 Problem Morbid (severe) obesity due to excess calories E66.01 Active 387633680 Problem Mixed hyperlipidemia E78.2 Active 593344922 Problem Medicare annual wellness visit, subsequent Z00.00 Active 963814533 Problem Essential hypertension I10 Active 19980836 Problem Body mass index (BMI) of 40.0-44.9 in adult Z68.41 Active 582539018 Problem Facial droop R29.810 Active 37635132 ALLERGIES No Information ENCOUNTERS Encounter Location Date Diagnosis [place] [id number] [address] September, [facility] [address] [address] Aug, [facility] [address] [address] Aug, Essential hypertension I10 ; Osteoarthritis M19.90 ; Body mass index (BMI) of 40.0-44.9 in adult Z68.41 ; Morbid (severe) obesity due to excess calories E66.01 ; Mixed hyperlipidemia E78.2 and Facial droop R29.810 [facility] [address] [address] Jun, Encounter for immunization Z23 [facility] [address] [address] Jun, [facility] [address] [place] [address] 15 Jun, 2017 Medicare annual wellness visit, initial Z00.00 ; Essential hypertension I10 ; Osteoarthritis M19.90 ; Encounter for immunization Z23 and Body mass index (BMI) of 38.0-38.9 in adult Z68.38 [facility] [address] [place] [id number] [address] May, Pain of left calf M79.662 [facility] [address] [place] [id number] [place] [address] May, Pain of left calf M79.662 [facility] [address] [place] [id number] [place] [address] May, Acute nasopharyngitis J00 [facility] [address] [place] [id number] [place] [address] Mar, Pain of left calf M79.662 [facility] [address] [place] [id number] [place] [address] Feb, Cramps of left lower extremity R25.2 [facility] [address] [place] [id number] [place] [address] Feb, Cramps of left lower extremity R25.2 [facility] [address] [id number] [place] [address] Feb, [facility] [address] [place] [id number] [place] [address] Jan, Cramps of left lower extremity R25.2 [facility] [address] [place] [id number] [place] [address] Nov, [facility] [address] [place] [id number] [place] [address] Nov, [facility] [address] [place] [id number] [place] [address] Nov, Pain of left calf M79.662 [facility] [address], [place] [address] Oct, [facility] [address] [place] [id number] [place] [address] Oct, [facility] [address] [place] [id number] [place] [address] Oct, Essential hypertension I10 ; Cramps of left lower extremity R25.2 and Morbid (severe) obesity due to excess calories E66.01 [facility] [address] [id number] [place] [address] Oct, Cramps of left lower extremity R25.2 ; Essential hypertension I10 and Morbid (severe) obesity due to excess calories E66.01 [facility] [address] [id number] [place] [address] Aug, [facility] [address] [id number] [place] [address] Aug, Cramps of left lower extremity R25.2 [facility] [address] [place] [id number] [place] [address] Jul, Pain in left shoulder M25.512 [facility] [address] [place] [id number] [place] [address] Jul, Tear of left rotator cuff, unspecified tear extent M75.102 [facility] [address] [place] [id number] [place] [address] Jun, Pain in left shoulder M25.512 [facility] [address] [place] [id number] [place] [address] Jun, Essential hypertension I10 ; Pain in left shoulder M25.512 and Morbid (severe) obesity due to excess calories E66.01 [facility] [address] [place] [address] May, Pain in left shoulder M25.512 [place] [address] [place] [id number] [place] [address] May, Tear of left rotator cuff, unspecified tear extent M75.102 [place] [address] [place] [id number] [place] [address] Apr, Medicare annual wellness visit, subsequent Z00.00 ; Body mass index (BMI) of 40.0-44.9 in adult Z68.41 ; Morbid (severe) obesity due to excess calories E66.01 ; Essential hypertension I10 ; Pain in left shoulder M25.512 and Other chronic pain G89.29 [place] [address] [place] [id number] [place] [address] Apr, Osteoarthritis M19.90 [place] [address] [place] [id number] [place] [address] Apr, Tear of left rotator cuff, unspecified tear extent M75.102 [place] [address] [place] [id number] [place] [address] Apr, Tear of left rotator cuff, unspecified tear extent M75.102 [place] [address] [place] [id number] [place] [address] Mar, Tear of left rotator cuff, unspecified tear extent M75.102 [place] [address] [place] [id number] [place] [address] Mar, Tear of left rotator cuff, unspecified tear extent M75.102 [place] [address] [place] [id number] [place] [address] Mar, Tear of left rotator cuff, unspecified tear extent M75.102 [place] [address] [place] [id number] [place] [address] Mar, Tear of left rotator cuff, unspecified tear extent M75.102 [place] [address] [place] [id number] [place] [address] 08 Mar, 2016 Essential hypertension I10 ; Obesity E66.9 and Bacterial conjunctivitis of both eyes H10.9 [facility] [address] [place] [id number] [place] [address] 31 Feb, 2016 Tear of left rotator cuff, unspecified tear extent M75.102 [facility] [address] [place] [address] [place] [id number] 17 Feb, 2016 Tear of left rotator cuff, unspecified tear extent M75.102 [place] [address] Feb, Tear of left rotator cuff, unspecified tear extent M75.102 [place] [address] [place] [address] [place] [id number] Feb, Tear of left rotator cuff, unspecified tear extent M75.102 [place] [address] [place] [address] [place] [id number] Jan, Tear of left rotator cuff, unspecified tear extent M75.102 [place] [address] [place] [address] [place] [id number] Jan, Tear of left rotator cuff, unspecified tear extent M75.102 [place] [address] [place] [address] [place] [id number] Jan, Tear of left rotator cuff, unspecified tear extent M75.102 [place] [address] [place] [address] [place] [address] Jan, Tear of left rotator cuff, unspecified tear extent M75.102 [place] [address] [place] [address] [place] [address] Dec, [place] [address] [place] [id number] [place] [address] Dec, Tear of left rotator cuff, unspecified tear extent M75.102 [place] [address] [place] [address] [place] [address] Dec, Essential hypertension I10 ; Osteoarthritis M19.90 and Obesity E66.9 [facility] [address] [place] [id number] [place] [address] September, Essential hypertension I10 and Obesity E66.9 [facility] [address] [place] [id number] [place] [address] Jun, Essential hypertension I10 ; Obesity E66.9 and Osteoarthritis M19.90 [place] [address] [address] Jun, [place] [address] [address] May, Tear of left rotator cuff, unspecified tear extent M75.102 [place] [address] [place] [id number] [place] [address] May, Muscle spasm M62.838 [place] [address] [place] [id number] [place] [address] Apr, [place] [address] [place] [id number] [place] [address] Apr, Essential hypertension I10 [address] [place] [id number] Feb, Dental examination Z01.20 and Dental caries, unspecified K02.9 [place] [address] [place] [address] 28 Jan, 2015 Impacted cerumen of both ears 380.[address] [id number] [id number] 17 Jan, 2015 Dental examination V72.2 [place] [address] [address] 14 Jan, 2015 Impacted cerumen of both ears 380.4 [place] [address] [place] [id number] [place] [address] 02 Oct, 2014 Essential hypertension, benign 401.1 [place] [address] [place] [address] 14 Aug, 2014 [facility] [place] [facility] [address] [id number] [place] [address] 13 Aug, 2014 [facility] [place] [facility] [address] [id number] [place] [address] Jul, [facility] [place] [facility] [address] [id number] [place] [address] Jul, 2014 [facility] [place] [facility] [address] [id number] [place] [address] Jun, [facility] [place] [facility] [address] [id number] [place] [address] Jun, [facility] [place] [facility] [address] [facility] [id number] [place] [address] Mar, [facility] [place] [facility] [address] [facility] [id number] [place] [address] Mar, [facility] [place] [facility] [address] [id number] [place] [address] Jul, [facility] [place] [facility] [address] [facility] [id number] [place] [address] Jul, [facility] [place] [facility] [address] [facility] [id number] [place] [address] Jun, [facility] [place] [facility] [address] [id number] [place] [address] Jun, [facility] [place] [facility] [address] [id number] [place] [address] Jun, [facility] [place] [facility] [address] [id number] [place] [address] Jun, [facility] [place] [facility] [address] [facility] [id number] [place] [address] Jun, [facility] [place] [facility] [address] [facility] [id number] [place] [address] Jun, [facility] [place] [facility] [address] [id number] [place] [address] Feb, [facility] [place] [facility] [address] [id number] [place] [address] Feb, [facility] [place] [facility] [address] [id number] [place] [address] Feb, [facility] [place] [facility] [address] [id number] [place] [address] Feb, [facility] [place] [facility] [address] [id number] [place] [address] Feb, [facility] [place] [facility] [address] [id number] [place] [address] Feb, [facility] [place] [facility] [address] [id number] [place] [address] Feb, [facility] [place] [facility] [address] [id number] [place] [address] Feb, [facility] [place] [facility] [address] [id number] [place] [address] 05 Feb, 2013 [facility] [place] [facility] [address] [id number], [place] [address] Feb, [facility] [place] [facility] [address] [id number], [place] [address] 10 Jan, 2012 [facility] [place] [facility] [address] [id number], [place] [address] 07 Jan, 2012 [facility] [place] [facility] [address] [id number] [place] [address] 23 Aug, 2011 [facility] [place] [facility] [address] [id number], [place] [address] 16 Aug, 2011 [facility] [place] [facility] [address] [id number], [place] [address] 16 Aug, 2011 [facility] [place] [facility] [address] [facility] [id number] [place] [address] Aug, [facility] [address] [facility] [id number] [place] [address] September, IMMUNIZATIONS No Known Immunizations SOCIAL HISTORY Never Assessed REASON FOR VISIT PT follow-up PLAN OF CARE Activity Details Follow Up 3 Weeks Reason:F/U PT VITAL SIGNS MEDICATIONS Unknown Medications RESULTS No Results PROCEDURES Procedure Date Ordered Result Body Site THERAPEUTIC EXERCISES Feb 28, 2017 INSTRUCTIONS MEDICATIONS ADMINISTERED No Known Medications [...]
--- OUTSIDE RECORDS SUMMARY | 2018-11-15 01:34 | XMS REPORT ---
Author Author [facility] Organization [facility] Address [address] [place] [address] Care Team Providers Care Finish Photographer Name Role Phone [facility] Unavailable PROBLEMS Type Condition ICD9-CM Code CRJ15-YL Code Onset Dates Condition Status SNOMED Code Problem Osteoarthritis M19.90 Active 832509983 Problem Pain of left calf M79.662 Active 2146616289234240 Problem Morbid (severe) obesity due to excess calories E66.01 Active 628388783 Problem Mixed hyperlipidemia E78.2 Active 581418711 Problem Medicare annual wellness visit, subsequent Z00.00 Active 152255226 Problem Essential hypertension I10 Active 09901321 Problem Body mass index (BMI) of 40.0-44.9 in adult Z68.41 Active 029613206 Problem Facial droop R29.810 Active 80505726 ALLERGIES No Information ENCOUNTERS Encounter Location Date Diagnosis [facility] [address] [address] September, [facility] [address] [address] Aug, [facility] [address] [address] Aug, Essential hypertension I10 ; Osteoarthritis M19.90 ; Body mass index (BMI) of 40.0-44.9 in adult Z68.41 ; Morbid (severe) obesity due to excess calories E66.01 ; Mixed hyperlipidemia E78.2 and Facial droop R29.810 [facility] [address] [address] Jun, Encounter for immunization Z23 [facility] [address] [address] Jun, [facility] [address] [address] 15 Jun, 2017 Medicare annual wellness visit, initial Z00.00 ; Essential hypertension I10 ; Osteoarthritis M19.90 ; Encounter for immunization Z23 and Body mass index (BMI) of 38.0-38.9 in adult Z68.38 [facility] [id number] [address] May, Pain of left calf M79.662 [facility] [id number] [place] [address] May, Pain of left calf M79.662 [facility] [id number] [place] [address] May, Acute nasopharyngitis J00 [facility] [id number] [place] [address] Mar, Pain of left calf M79.662 [facility] [id number] [place] [address] Feb, Cramps of left lower extremity R25.2 [facility] [id number] [place] [address] Feb, Cramps of left lower extremity R25.2 [facility] [id number] [place] [address] Feb, [facility] [id number] [place] [address] Jan, Cramps of left lower extremity R25.2 [facility] [id number] [place] [address] Nov, [facility] [id number] [place] [address] Nov, [facility] [id number] [place] [address] Nov, Pain of left calf M79.662 [facility] [address] [address] Oct, [facility] [id number] [place] [address] Oct, [facility] [address] [place] [address] Oct, Essential hypertension I10 ; Cramps of left lower extremity R25.2 and Morbid (severe) obesity due to excess calories E66.01 [facility] [address] [place] [address] Oct, Cramps of left lower extremity R25.2 ; Essential hypertension I10 and Morbid (severe) obesity due to excess calories E66.01 [facility] [address] [address] Aug, [facility] [id number] [place] [address] Aug, Cramps of left lower extremity R25.2 [facility] [id number] [place] [address] Jul, Pain in left shoulder M25.512 [facility] [id number] [place] [address] Jul, Tear of left rotator cuff, unspecified tear extent M75.102 [facility] [address] [place] [address] Jun, Pain in left shoulder M25.512 [facility] [id number] [place] [address] Jun, Essential hypertension I10 ; Pain in left shoulder M25.512 and Morbid (severe) obesity due to excess calories E66.01 [facility] [address] [address] May, Pain in left shoulder M25.512 [facility] [address] [place] [address] May, Tear of left rotator cuff, unspecified tear extent M75.102 [facility] [id number] [place] [address] Apr, Medicare annual wellness visit, subsequent Z00.00 ; Body mass index (BMI) of 40.0-44.9 in adult Z68.41 ; Morbid (severe) obesity due to excess calories E66.01 ; Essential hypertension I10 ; Pain in left shoulder M25.512 and Other chronic pain G89.29 [facility] [address] [place] [address] Apr, Osteoarthritis M19.90 [facility] [address] [place] [address] Apr, Tear of left rotator cuff, unspecified tear extent M75.102 [facility] [address] [place] [address] Apr, Tear of left rotator cuff, unspecified tear extent M75.102 [facility] [address] [place] [address] Mar, Tear of left rotator cuff, unspecified tear extent M75.102 [facility] [address] [place] [address] Mar, Tear of left rotator cuff, unspecified tear extent M75.102 [facility] [address] [place] [address] Mar, Tear of left rotator cuff, unspecified tear extent M75.102 [facility] [address] [place] [address] Mar, Tear of left rotator cuff, unspecified tear extent M75.102 [facility] [address] [place] [address] 08 Mar, 2016 Essential hypertension I10 ; Obesity E66.9 and Bacterial conjunctivitis of both eyes H10.9 [facility] [address] [place] [address] 31 Feb, 2016 Tear of left rotator cuff, unspecified tear extent M75.102 [facility] [address] [place], [place] [address] 17 Feb, 2016 Tear of left rotator cuff, unspecified tear extent M75.102 [facility] [address] 10 Feb, 2016 Tear of left rotator cuff, unspecified tear extent M75.102 [facility] [address] Feb, Tear of left rotator cuff, unspecified tear extent M75.102 [facility] [address] [place] [address] Jan, Tear of left rotator cuff, unspecified tear extent M75.102 [facility] [address] [place] [address] Jan, Tear of left rotator cuff, unspecified tear extent M75.102 [facility] [address] [place] [address] Jan, Tear of left rotator cuff, unspecified tear extent M75.102 [facility] [address] [place] [address] Jan, Tear of left rotator cuff, unspecified tear extent M75.102 [facility] [address] [place] [address] Dec, [facility] [address] [place] [address] Dec, Tear of left rotator cuff, unspecified tear extent M75.102 [facility] [address] [place] [address] Dec, Essential hypertension I10 ; Osteoarthritis M19.90 and Obesity E66.9 [facility] [address] [place] [address] September, Essential hypertension I10 and Obesity E66.9 [facility] [address] [place] [address] Jun, Essential hypertension I10 ; Obesity E66.9 and Osteoarthritis M19.90 [facility] [address] [address] Jun, [facility] [address] [place] [address] May, Tear of left rotator cuff, unspecified tear extent M75.102 [facility] [address] [place] [address] May, Muscle spasm M62.838 [facility] [address] [place] [address] Apr, [facility] [address] [place] [address] Apr, Essential hypertension I10 [address] [id number] [id number] Feb, Dental examination Z01.20 and Dental caries, unspecified K02.9 [facility] [address], [place] [address] Jan, Impacted cerumen of both ears 380.[address] [facility] [address] [id number] [id number] 17 Jan, 2015 Dental examination V72.2 [facility] [id number] [place] [address] 14 Jan, 2015 Impacted cerumen of both ears 380.4 [facility] [address] [place] [address] 02 Oct, 2014 Essential hypertension, benign 401.1 [facility] [address] [place] [address] 14 Aug, 2014 [facility] [place] [facility] [address] [id number] [place] [address] 13 Aug, 2014 [facility] [place] [facility] [address] [id number] [place] [address] Jul, [facility] [place] [facility] [address] [id number] [place] [address] Jul, 2014 [facility] [place] [facility] [address] [id number] [place] [address] Jun, [facility] [place] [facility] [address] [id number] [place] [address] Jun, [facility] [place] [facility] [address] [facility] [id number] [place] [address] Mar, [facility] [place] [facility] [address] [facility] [id number] [place] [address] Mar, [facility] [place] [facility] [address] [facility] [id number] [place] [address] Jul, [facility] [place] [facility] [address] [facility] [id number] [place] [address] Jul, [facility] [place] [facility] [address] [facility] [id number] [place] [address] Jun, [facility] [place] [facility] [address] [facility] [id number] [place] [address] Jun, [facility] [place] [facility] [address] [id number] [place] [address] Jun, [facility] [place] [facility] [address] [id number] [place] [address] Jun, [facility] [place] [facility] [address] [facility] [id number] [place] [address] Jun, [facility] [place] [facility] [address] [facility] [id number] [place] [address] Jun, [facility] [place] [facility] [address] [id number] [place] [address] Feb, [facility] [place] [facility] [address] [id number] [place] [address] Feb, [facility] [place] [facility] [address] [id number] [place] [address] Feb, [facility] [place] [facility] [address] [id number] [place] [address] Feb, [facility] [place] [facility] [address] [id number] [place] [address] Feb, [facility] [place] [facility] [address] [id number] [place] [address] Feb, [facility] [place] [facility] [address] [id number] [place] [address] Feb, [facility] [place] [facility] [address] [id number] [address] Feb, [facility] [place] [facility] [address] [id number] [place] [address] 05 Feb, 2013 [facility] [place] [facility] [address] [id number] [place] [address] Feb, [facility] [place] [facility] [address] [id number], [place] [address] 10 Jan, 2012 [facility] [place] [facility] [address] [id number], [place] [address] 07 Jan, 2012 [facility] [place] [facility] [address] [id number] [place] [address] 23 Aug, 2011 [facility] [place] [facility] [address] [id number], [place] [address] 16 Aug, 2011 [facility] [place] [facility] [address] [id number], [place] [address] 16 Aug, 2011 [facility] [place] [facility] [address] [facility] [id number] [place] [address] Aug, [facility] [address] [facility] [id number] [place] [address] September, IMMUNIZATIONS No Known Immunizations SOCIAL HISTORY Never Assessed REASON FOR VISIT DI order PLAN OF CARE VITAL SIGNS MEDICATIONS Unknown [...]
--- OUTSIDE RECORDS SUMMARY | 2018-11-15 01:34 | XMS REPORT ---
Author Author BIBIANA DANGELO [facility] [address] Address [address] [place] [address] Care Team Providers Care Plug Saw Operator Name Role Phone LORETO BIBIANA Unavailable PROBLEMS Type Condition ICD9-CM Code DCK38-MQ Code Onset Dates Condition Status SNOMED Code Problem Osteoarthritis M19.90 Active 415997945 Problem Pain of left calf M79.662 Active 1809730848292896 Problem Morbid (severe) obesity due to excess calories E66.01 Active 814183102 Problem Mixed hyperlipidemia E78.2 Active 711380625 Problem Medicare annual wellness visit, subsequent Z00.00 Active 229591931 Problem Essential hypertension I10 Active 29310850 Problem Body mass index (BMI) of 40.0-44.9 in adult Z68.41 Active 128922649 Problem Facial droop R29.810 Active 79559590 ALLERGIES No Information ENCOUNTERS Encounter Location Date Diagnosis [place] [id number] [address] September, [facility] [place] [address] [address] Aug, [facility] [place] [address] [address] Aug, Essential hypertension I10 ; Osteoarthritis M19.90 ; Body mass index (BMI) of 40.0-44.9 in adult Z68.41 ; Morbid (severe) obesity due to excess calories E66.01 ; Mixed hyperlipidemia E78.2 and Facial droop R29.810 [facility] [place] [address] [address] Jun, Encounter for immunization Z23 [facility] [place] [address] [address] Jun, [facility] [place] [address] [address] 15 Jun, 2017 Medicare annual wellness visit, initial Z00.00 ; Essential hypertension I10 ; Osteoarthritis M19.90 ; Encounter for immunization Z23 and Body mass index (BMI) of 38.0-38.9 in adult Z68.38 [facility] [place] [address] [place] [id number] [address] May, Pain of left calf M79.662 [facility] [place] [address] [place] [id number] [place] [address] May, Pain of left calf M79.662 [facility] [address] [place] [id number] [place] [address] May, Acute nasopharyngitis J00 [facility] [place] [address] [place] [id number] [place] [address] Mar, Pain of left calf M79.662 [facility] [place] [address] [place] [id number] [place] [address] Feb, Cramps of left lower extremity R25.2 [facility] [place] [address] [place] [id number] [place] [address] Feb, Cramps of left lower extremity R25.2 [facility] [place] [address] [place] [address] [id number] [place] [address] Feb, [facility] [place] [address] [place] [id number] [place] [address] Jan, Cramps of left lower extremity R25.2 [facility] [place] [address] [place] [address] [id number] [place] [address] Nov, [facility] [place] [address] [place] [id number] [place] [phone] Nov, [facility] [place] [address] [place] [id number] [place] [address] Nov, Pain of left calf M79.662 [facility] [place] [address] [address] Oct, [facility] [place] [address] [place] [id number] [place] [address] Oct, [facility] [place] [address] [place] [id number] [place] [address] Oct, Essential hypertension I10 ; Cramps of left lower extremity R25.2 and Morbid (severe) obesity due to excess calories E66.01 [facility] [place] [address] [place] [id number] [place] [address] Oct, Cramps of left lower extremity R25.2 ; Essential hypertension I10 and Morbid (severe) obesity due to excess calories E66.01 [facility] [place] [address] [place] [id number] [place] [phone] Aug, [facility] [place] [address] [place] [id number] [place] [address] Aug, Cramps of left lower extremity R25.2 [facility] [place] [address] [place] [id number] [place] [address] Jul, Pain in left shoulder M25.512 [facility] [place] [address] [place] [id number] [place] [address] Jul, Tear of left rotator cuff, unspecified tear extent M75.102 [facility] [place] [address] [place] [id number] [place] [address] Jun, Pain in left shoulder M25.512 [facility] [place] [address] [place] [id number] [place] [address] Jun, Essential hypertension I10 ; Pain in left shoulder M25.512 and Morbid (severe) obesity due to excess calories E66.01 [facility] [place] [address] [place] [address] May, Pain in left shoulder M25.512 [place] [address] [place] [id number] [place] [address] May, Tear of left rotator cuff, unspecified tear extent M75.102 [place] [address] [place] [id number] [place], [place] [address] Apr, Medicare annual wellness visit, subsequent Z00.00 ; Body mass index (BMI) of 40.0-44.9 in adult Z68.41 ; Morbid (severe) obesity due to excess calories E66.01 ; Essential hypertension I10 ; Pain in left shoulder M25.512 and Other chronic pain G89.29 [place] [address] [place] [id number] [place] [address] Apr, Osteoarthritis M19.90 [place] [address] [place] [id number] [place] [address] Apr, Tear of left rotator cuff, unspecified tear extent M75.102 [place] [address] [place] [id number] [place] [address] Apr, Tear of left rotator cuff, unspecified tear extent M75.102 [place] [address] [place] [id number] [place] [address] Mar, Tear of left rotator cuff, unspecified tear extent M75.102 [place] [address] [place] [id number] [place] [address] Mar, Tear of left rotator cuff, unspecified tear extent M75.102 [place] [address] [place] [id number] [place] [address] Mar, Tear of left rotator cuff, unspecified tear extent M75.102 [place] [address] [place] [id number] [place] [address] Mar, Tear of left rotator cuff, unspecified tear extent M75.102 [place] [address] [place] [id number] [place] [address] 08 Mar, 2016 Essential hypertension I10 ; Obesity E66.9 and Bacterial conjunctivitis of both eyes H10.9 [facility] [place] [address] [place] [id number] [place] [address] 31 Feb, 2016 Tear of left rotator cuff, unspecified tear extent M75.102 [facility] [place] [address] [place] [id number] [place] [id number] 17 Feb, 2016 Tear of left rotator cuff, unspecified tear extent M75.102 [place] [address] Feb, Tear of left rotator cuff, unspecified tear extent M75.102 [place] [address] [place] [id number] [place] [id number] Feb, Tear of left rotator cuff, unspecified tear extent M75.102 [place] [address] [place] [id number] [place] [id number] Jan, Tear of left rotator cuff, unspecified tear extent M75.102 [place] [address] [place] [id number] [place] [id number] Jan, Tear of left rotator cuff, unspecified tear extent M75.102 [place] [address] [place] [id number] [place] [id number] Jan, Tear of left rotator cuff, unspecified tear extent M75.102 [place] [address] [place] [id number] [place] [address] Jan, Tear of left rotator cuff, unspecified tear extent M75.102 [place] [address] [place] [id number] [place] [address] Dec, [place] [address] [place] [id number] [place] [address] Dec, Tear of left rotator cuff, unspecified tear extent M75.102 [place] [address] [place] [id number] [place], [place] [id number] Dec, Essential hypertension I10 ; Osteoarthritis M19.90 and Obesity E66.9 [facility] [place] [address] [place] [id number] [place] [address] September, Essential hypertension I10 and Obesity E66.9 [facility] [place] [address] [place] [id number] [place] [address] Jun, Essential hypertension I10 ; Obesity E66.9 and Osteoarthritis M19.90 [place] [address] [address] Jun, [place] [address] [address] May, Tear of left rotator cuff, unspecified tear extent M75.102 [place] [address] [place] [id number] [place] [address] May, Muscle spasm M62.838 [place] [address] [place] [id number] [place] [address] Apr, [place] [address] [place] [id number] [place] [phone] Apr, Essential hypertension I10 [address] [place] [id number] Feb, Dental examination Z01.20 and Dental caries, unspecified K02.9 [place] [address] [place] [address] 28 Jan, 2015 Impacted cerumen of both ears 380.[address] [id number] [id number] 17 Jan, 2015 Dental examination V72.2 [place] [address] [address] 14 Jan, 2015 Impacted cerumen of both ears 380.4 [place] [address] [place] [id number] [place] [phone] 02 Oct, 2014 Essential hypertension, benign 401.1 [place] [address] [place] [address] 14 Aug, 2014 [facility] [place] [facility] [address] [id number] [place] [address] 13 Aug, 2014 [facility] [place] [facility] [address] [id number] [place] [address] Jul, [facility] [place] [facility] [address] [id number] [place] [address] Jul, 2014 [facility] [place] [facility] [address] [id number] [place] [address] Jun, [facility] [place] [facility] [address] [id number] [place] [address] Jun, [facility] [place] [facility] [address] [facility] [id number] [place] [address] Mar, [facility] [place] [facility] [address] [facility] [id number] [place] [address] Mar, [facility] [place] [facility] [address] [id number] [place] [address] Jul, [facility] [place] [facility] [address] [facility] [id number] [place] [address] Jul, [facility] [place] [facility] [address] [facility] [id number] [place] [address] Jun, [facility] [place] [facility] [address] [id number] [place] [address] Jun, [facility] [place] [facility] [address] [id number] [place] [address] Jun, [facility] [place] [facility] [address] [id number] [place] [address] Jun, [facility] [place] [facility] [address] [facility] [id number] [place] [address] Jun, [facility] [place] [facility] [address] [facility] [id number] [place] [address] Jun, [facility] [place] [facility] [address] [id number] [place] [address] Feb, [facility] [place] [facility] [address] [id number] [place] [address] Feb, [facility] [place] [facility] [address] [id number] [place] [address] Feb, [facility] [place] [facility] [address] [id number] [place] [address] Feb, [facility] [place] [facility] [address] [id number] [place] [address] Feb, [facility] [place] [facility] [address] [id number] [place] [address] Feb, [facility] [place] [facility] [address] [id number] [place] [address] Feb, [facility] [place] [facility] [address] [id number] [place] [address] Feb, [facility] [place] [facility] [address] [id number] [place] [address] 05 Feb, 2013 [facility] [place] [facility] [address] [id number], [place] [address] Feb, [facility] [place] [facility] [address] [id number], [place] [address] 10 Jan, 2012 [facility] [place] [facility] [address] [id number], [place] [address] 07 Jan, 2012 [facility] [place] [facility] [address] [id number] [place] [address] 23 Aug, 2011 [facility] [place] [facility] [address] [id number], [place] [address] 16 Aug, 2011 [facility] [place] [facility] [address] [id number], [place] [address] 16 Aug, 2011 [facility] [place] [facility] [address] [facility] [id number] [place] [address] Aug, [facility] [place] [address] [facility] [id number] [place] [address] September, IMMUNIZATIONS No Known Immunizations SOCIAL HISTORY Never Assessed REASON FOR VISIT PT Evaluation PLAN OF CARE Activity Details Follow Up 2 Weeks Reason:F/U PT VITAL SIGNS MEDICATIONS Unknown Medications RESULTS No Results PROCEDURES Procedure Date Ordered Result Body Site PT EVAL LOW COMPLEX 20 MIN Feb 02, 2017 THERAPEUTIC EXERCISES Feb 02, 2017 INSTRUCTIONS MEDICATIONS ADMINISTERED No Known Medications [...]
--- OUTSIDE RECORDS SUMMARY | 2018-11-15 01:35 | XMS REPORT ---
Author Author BIBIANA DANGELO [facility] Address [address] [place] [address] Care Team Providers Care Compressor Service Technician Name Role Phone LORETO BIBIANA Unavailable PROBLEMS Type Condition ICD9-CM Code DAX44-VW Code Onset Dates Condition Status SNOMED Code Problem Osteoarthritis M19.90 Active 565724521 Problem Pain of left calf M79.662 Active 0680764505511807 Problem Morbid (severe) obesity due to excess calories E66.01 Active 161429517 Problem Mixed hyperlipidemia E78.2 Active 489007297 Problem Medicare annual wellness visit, subsequent Z00.00 Active 336384076 Problem Essential hypertension I10 Active 96247404 Problem Body mass index (BMI) of 40.0-44.9 in adult Z68.41 Active 094269138 Problem Facial droop R29.810 Active 21532448 ALLERGIES No Information ENCOUNTERS Encounter Location Date Diagnosis [place] [address] [address] Nov, [place] [address] [address] Oct, [place] [address] [address] September, [facility] [address] [address] Aug, [place] [address] [address] Aug, Essential hypertension I10 ; Osteoarthritis M19.90 ; Body mass index (BMI) of 40.0-44.9 in adult Z68.41 ; Morbid (severe) obesity due to excess calories E66.01 ; Mixed hyperlipidemia E78.2 and Facial droop R29.810 [facility] [address] [place] [id number] [place] [address] Jun, Encounter for immunization Z23 [facility] [address] [address] Jun, Pain of left calf M79.662 [facility] [address] [place] [id number] [place] [address] 15 Jun, 2017 Medicare annual wellness visit, initial Z00.00 ; Essential hypertension I10 ; Osteoarthritis M19.90 ; Encounter for immunization Z23 and Body mass index (BMI) of 38.0-38.9 in adult Z68.38 [facility] [address] [address] May, Pain of left calf M79.662 [facility] [address] [place] [id number] [place] [address] May, Pain of left calf M79.662 [facility] [address] [place] [id number] [place] [address] May, Acute nasopharyngitis J00 [facility] [address] [address] Mar, Pain of left calf M79.662 [facility] [address] [place] [id number] [place] [address] Feb, Cramps of left lower extremity R25.2 [facility] [address] [place] [id number] [place] [address] Feb, Cramps of left lower extremity R25.2 [facility] [address] [place] [id number] [place] [address] Feb, [facility] [address] [place] [id number] [place] [address] Jan, Cramps of left lower extremity R25.2 [facility] [address] [address] Nov, [facility] [address] [address] Nov, [facility] [address] [place] [id number] [place] [address] Nov, Pain of left calf M79.662 [facility] [address] [place] [id number] [place] [address] Oct, [facility] [address] [place] [id number] [place] [address] Oct, [facility] [address] [place] [id number] [place] [address] Oct, Essential hypertension I10 ; Cramps of left lower extremity R25.2 and Morbid (severe) obesity due to excess calories E66.01 [facility] [address] [place] [id number] [place] [address] Oct, Cramps of left lower extremity R25.2 ; Essential hypertension I10 and Morbid (severe) obesity due to excess calories E66.01 [facility] [address] [place] [id number] [place] [address] Aug, [facility] [address] [place] [id number] [place] [address] Aug, Cramps of left lower extremity R25.2 [facility] [address] [place] [id number] [place] [address] Jul, Pain in left shoulder M25.512 [facility] [address] [place] [id number] [place] [address] Jul, Tear of left rotator cuff, unspecified tear extent M75.102 [facility] [address] [place] [id number] [place] [address] 15 Jun, 2016 Pain in left shoulder M25.512 [facility] [address] [place] [id number] [place] [address] Jun, Essential hypertension I10 ; Pain in left shoulder M25.512 and Morbid (severe) obesity due to excess calories E66.01 [place] [address] [place] [id number] [place] [address] May, Pain in left shoulder M25.512 [place] [address] [place] [id number] [place] [address] May, Tear of left rotator cuff, unspecified tear extent M75.102 [place] [address] [place] [id number] [place] [address] Apr, Medicare annual wellness visit, subsequent Z00.00 ; Body mass index (BMI) of 40.0-44.9 in adult Z68.41 ; Morbid (severe) obesity due to excess calories E66.01 ; Essential hypertension I10 ; Pain in left shoulder M25.512 and Other chronic pain G89.29 [place] [address] [place] [id number] [place] [address] Apr, Osteoarthritis M19.90 [place] [address] [place] [id number] [place] [address] Apr, Tear of left rotator cuff, unspecified tear extent M75.102 [place] [address] [place] [id number] [place] [address] Apr, Tear of left rotator cuff, unspecified tear extent M75.102 [place] [address] [place] [id number] [place] [address] Mar, Tear of left rotator cuff, unspecified tear extent M75.102 [place] [address] [place] [id number] [place] [address] Mar, Tear of left rotator cuff, unspecified tear extent M75.102 [place] [address] [place] [id number] [place] [address] Mar, Tear of left rotator cuff, unspecified tear extent M75.102 [place] [address] [place] [id number] [place] [address] Mar, Tear of left rotator cuff, unspecified tear extent M75.102 [facility] [address] [place] [id number] [place] [id number] Mar, Essential hypertension I10 ; Obesity E66.9 and Bacterial conjunctivitis of both eyes H10.9 [facility] [address] [place] [id number] [place] [address] Feb, Tear of left rotator cuff, unspecified tear extent M75.102 [facility] [address] [place] [id number] [place] [address] 17 Feb, 2016 Tear of left rotator cuff, unspecified tear extent M75.102 [place] [address] [place] [id number] [place] [address] Feb, Tear of left rotator cuff, unspecified tear extent M75.102 [place] [address] [place] [id number] [place] [address] Feb, Tear of left rotator cuff, unspecified tear extent M75.102 [facility] [address] [place] [id number] [place] [address] Jan, Tear of left rotator cuff, unspecified tear extent M75.102 [facility] [address] [place] [id number] [place] [address] Jan, Tear of left rotator cuff, unspecified tear extent M75.102 [facility] [address] [place] [id number] [place] [address] Jan, Tear of left rotator cuff, unspecified tear extent M75.102 [facility] [address] [place] [id number] [place] [address] Jan, Tear of left rotator cuff, unspecified tear extent M75.102 [facility] [address] [place] [id number] [place] [address] Dec, [facility] [address] [place] [id number] [place] [address] Dec, Tear of left rotator cuff, unspecified tear extent M75.102 [facility] [id number] [place] [address] Dec, Essential hypertension I10 ; Osteoarthritis M19.90 and Obesity E66.9 [facility] [address] [place] [id number] [place] [address] September, Essential hypertension I10 and Obesity E66.9 [facility] [address] [place] [id number] [place] [address] Jun, Essential hypertension I10 ; Obesity E66.9 and Osteoarthritis M19.90 [place] [address] [place] [id number] [place] [address] Jun, [place] [address] [place] [id number] [place] [address] May, Tear of left rotator cuff, unspecified tear extent M75.102 [place] [address] [place] [id number] [place] [address] May, Muscle spasm M62.838 [place] [address] [place] [id number] [place] [address] Apr, [place] [id number] [place] [address] Apr, Essential hypertension I10 [facility] [address] [id number] [id number] Feb, Dental examination Z01.20 and Dental caries, unspecified K02.9 [facility] [id number] [place] [address] Jan, Impacted cerumen of both ears 380.4 [facility] [address] [id number] [id number] Jan, Dental examination V72.2 [place] [address] [place] [id number] [place] [address] Jan, Impacted cerumen of both ears 380.4 [facility] [address] [place] [id number] [place] [address] Oct, Essential hypertension, benign 401.1 [facility] [address] [facility] [id number] [place] [address] 14 Aug, 2014 [facility] [address] [facility] [id number] [place] [address] Aug, [facility] [address] [facility] [id number] [place] [address], [place] [address] Jul, [facility] [address] [place] [id number] [place] [address] Jul, [facility] [id number] [place] [address] Jun, [facility] [address] [place] [id number] [place] [address] Jun, [facility] [address] [address] Mar, [facility] [id number] [place] [address] Mar, [facility] [address], [place] [address] Jul, [facility] [address] [place] [id number] [address] Jul, [facility] [address] [place] [id number] [address] Jun, [facility] [address], [place] [address] Jun, [facility] [address] [place] [id number] [address] Jun, [facility] [address], [place] [address] Jun, 2013 [facility] [address] [id number] [place] [address] Jun, [facility] [place] [facility] [address] [id number] [place] [address] Jun, [facility] [place] [facility] [address] [id number] [place] [address] Feb, [facility] [place] [facility] [address] [id number] [place] [address] Feb, [facility] [place] [facility] [address] [id number] [place] [address] Feb, [facility] [place] [facility] [address] [id number] [place] [address] Feb, [facility] [address] [facility] [id number], [place] [address] Feb, [facility] [place] [facility] [address] [id number], [place] [address] Feb, [facility] [place] [facility] [address] [facility] [id number] [place] [address] Feb, [facility] [place] [facility] [address] [facility] [id number], [place] [address] Feb, [facility] [place] [facility] [address] [id number], [place] [address] 05 Feb, 2013 [facility] [place] [facility] [address] [id number], [place] [address] Feb, [facility] [place] [facility] [address] [id number], [place] [address] 10 Jan, 2012 [facility] [place] [facility] [address] [id number], [place] [address] 07 Jan, 2012 [facility] [place] [facility] [address] [facility] [id number], [place] [address] Aug, [facility] [place] [facility] [address] [facility] [id number] [place] [address] Aug, [facility] [address] [facility] [id number], [place] [address] Aug, [facility] [address] [facility] [id number], [place] [address] Aug, [facility] [address] [facility] [id number], [place] [address] September, IMMUNIZATIONS No Known Immunizations SOCIAL HISTORY Never Assessed REASON FOR VISIT PT follow-up PLAN OF CARE Activity Details Follow Up 4 Weeks Reason:F/U PT VITAL SIGNS MEDICATIONS Unknown Medications RESULTS No Results PROCEDURES Procedure Date Ordered Result Body Site THERAPEUTIC EXERCISES May 18, 2017 INSTRUCTIONS MEDICATIONS ADMINISTERED No Known Medications [...]
--- OUTSIDE RECORDS SUMMARY | 2018-11-15 01:35 | XMS REPORT ---
Author Author [facility] Address [address] [place] [address] Care Team Providers Care Tenon Machine Operator Name Role Phone [facility] Unavailable PROBLEMS Type Condition ICD9-CM Code PSQ33-OG Code Onset Dates Condition Status SNOMED Code Problem Osteoarthritis M19.90 Active 801984700 Problem Pain of left calf M79.662 Active 6283518404213235 Problem Morbid (severe) obesity due to excess calories E66.01 Active 477313651 Problem Mixed hyperlipidemia E78.2 Active 519595929 Problem Medicare annual wellness visit, subsequent Z00.00 Active 506071975 Problem Essential hypertension I10 Active 19311095 Problem Body mass index (BMI) of 40.0-44.9 in adult Z68.41 Active 167050367 Problem Facial droop R29.810 Active 88392762 ALLERGIES No Known Allergies ENCOUNTERS Encounter Location Date Diagnosis [place] [address] [address] Nov, [place] [address] [address] Oct, [place] [address] [place] [id number] [place] [phone] September, [facility] [address] [place] [place] [id number] [place] [address] Aug, [place] [address] [address] Aug, Essential hypertension I10 ; Osteoarthritis M19.90 ; Body mass index (BMI) of 40.0-44.9 in adult Z68.41 ; Morbid (severe) obesity due to excess calories E66.01 ; Mixed hyperlipidemia E78.2 and Facial droop R29.810 [facility] [address] [place] [id number] [place] [address] Jun, Encounter for immunization Z23 [facility] [address] [address] Jun, Pain of left calf M79.662 [facility] [address] [place] [id number] [place] [phone] 15 Jun, 2017 Medicare annual wellness visit, initial Z00.00 ; Essential hypertension I10 ; Osteoarthritis M19.90 ; Encounter for immunization Z23 and Body mass index (BMI) of 38.0-38.9 in adult Z68.38 [facility] [address] [address] May, Pain of left calf M79.662 [facility] [address] [address] May, Pain of left calf M79.662 [facility] [address] [place] [id number] [place] [address] May, Acute nasopharyngitis J00 [facility] [address] [address] Mar, Pain of left calf M79.662 [facility] [address] [place] [id number] [place] [address] Feb, Cramps of left lower extremity R25.2 [facility] [address] [place] [id number] [place] [address] Feb, Cramps of left lower extremity R25.2 [facility] [address] [place] [id number] [place] [address] Feb, [facility] [address] [place] [id number] [place] [phone] Jan, Cramps of left lower extremity R25.2 [facility] [address] [address] Nov, [facility] [address] [address] Nov, [facility] [address] [place] [id number] [place] [address] Nov, Pain of left calf M79.662 [facility] [address] [place] [id number] [place] [address] Oct, [facility] [address] [place] [id number] [place] [address] Oct, [facility] [address] [place] [id number] [place] [address] Oct, Essential hypertension I10 ; Cramps of left lower extremity R25.2 and Morbid (severe) obesity due to excess calories E66.01 [facility] [address] [place] [id number] [place] [address] Oct, Cramps of left lower extremity R25.2 ; Essential hypertension I10 and Morbid (severe) obesity due to excess calories E66.01 [facility] [address] [place] [id number] [place] [address] Aug, [facility] [address] [place] [id number] [place] [address] Aug, Cramps of left lower extremity R25.2 [facility] [address] [place] [id number] [place] [address] Jul, Pain in left shoulder M25.512 [facility] [id number] [place] [address] Jul, Tear of left rotator cuff, unspecified tear extent M75.102 [facility] [address] [place] [id number] [place] [address] 15 Jun, 2016 Pain in left shoulder M25.512 [facility] [address] [place] [id number] [place] [address] Jun, Essential hypertension I10 ; Pain in left shoulder M25.512 and Morbid (severe) obesity due to excess calories E66.01 [place] [address] [place] [id number] [place] [address] May, Pain in left shoulder M25.512 [place] [address] [place] [id number] [place] [address] May, Tear of left rotator cuff, unspecified tear extent M75.102 [place] [address] [place] [id number] [place] [address] Apr, Medicare annual wellness visit, subsequent Z00.00 ; Body mass index (BMI) of 40.0-44.9 in adult Z68.41 ; Morbid (severe) obesity due to excess calories E66.01 ; Essential hypertension I10 ; Pain in left shoulder M25.512 and Other chronic pain G89.29 [place] [address] [place] [id number] [place] [address] Apr, Osteoarthritis M19.90 [place] [address] [place] [id number] [place] [address] Apr, Tear of left rotator cuff, unspecified tear extent M75.102 [place] [address] [place] [id number] [place] [address] Apr, Tear of left rotator cuff, unspecified tear extent M75.102 [place] [address] [place] [id number] [place] [address] Mar, Tear of left rotator cuff, unspecified tear extent M75.102 [place] [address] [place] [id number] [address] Mar, Tear of left rotator cuff, unspecified tear extent M75.102 [place] [address] [place] [id number] [place] [address] Mar, Tear of left rotator cuff, unspecified tear extent M75.102 [place] [address] [place] [id number] [place] [address] Mar, Tear of left rotator cuff, unspecified tear extent M75.102 [facility] [address] [place] [address] Mar, Essential hypertension I10 ; Obesity E66.9 and Bacterial conjunctivitis of both eyes H10.9 [facility] [address] Feb, Tear of left rotator cuff, unspecified tear extent M75.102 [facility] [address] [place] [id number] Feb, Tear of left rotator cuff, unspecified tear extent M75.102 [facility] [address] [address] Feb, Tear of left rotator cuff, unspecified tear extent M75.102 [place] [address] [address] Feb, Tear of left rotator cuff, unspecified tear extent M75.102 [facility] [address] [address] Jan, Tear of left rotator cuff, unspecified tear extent M75.102 [facility] [address] [place] [id number] [place] [address] Jan, Tear of left rotator cuff, unspecified tear extent M75.102 [facility] [address] [place] [id number] [place] [address] Jan, Tear of left rotator cuff, unspecified tear extent M75.102 [facility] [address] [address] Jan, Tear of left rotator cuff, unspecified tear extent M75.102 [facility] [address] [place] [id number] [place] [address] Dec, [facility] [address] [place] [address] Dec, Tear of left rotator cuff, unspecified tear extent M75.102 [facility] [address] [place] [id number] [place] [address] Dec, Essential hypertension I10 ; Osteoarthritis M19.90 and Obesity E66.9 [facility] [address] [place] [id number] [place] [address] September, Essential hypertension I10 and Obesity E66.9 [facility] [address] [place] [id number] [place] [address] Jun, Essential hypertension I10 ; Obesity E66.9 and Osteoarthritis M19.90 [place] [address] [place] [id number] [place] [address] Jun, [place] [address] [place] [id number] [place] [address] May, Tear of left rotator cuff, unspecified tear extent M75.102 [place] [address] [place] [id number] [place] [address] May, Muscle spasm M62.838 [place] [address] [place] [id number] [place] [address] Apr, [place] [address] [place] [id number] [place] [address] Apr, Essential hypertension I10 [facility] [address] [id number] [id number] Feb, Dental examination Z01.20 and Dental caries, unspecified K02.9 [facility] [address] [place] [address] Jan, Impacted cerumen of both ears 380.4 [facility] [address] [id number] [id number] Jan, Dental examination V72.2 [place] [address] [place] [id number] [place] [address] Jan, Impacted cerumen of both ears 380.4 [facility] [address] [place] [address] Oct, Essential hypertension, benign 401.1 [facility] [address] [facility] [id number] [address] Aug, [facility] [address] [place] [id number] [place] [address] Aug, [facility] [id number] [place] [address] Jul, [facility] [address] [place] [id number] [place] [address] Jul, [facility] [id number] [place] [address] Jun, [facility] [address] [place] [id number] [place] [phone] Jun, [facility] [address], [place] [address] Mar, [facility] [id number] [place] [address] Mar, [facility] [address] [place] [address] Jul, [facility] [address], [place] [address] Jul, [facility] [address] [place] [id number] [address] Jun, [facility] [address], [place] [address] Jun, [facility] [address], [place] [address] Jun, [facility] [address], [place] [address] Jun, 2013 [facility] [address] [id number] [place] [address] Jun, [facility] [place] [facility] [address] [id number] [place] [address] Jun, [facility] [address] [id number] [place] [address] Feb, [facility] [place] [facility] [address] [id number] [place] [address] Feb, [facility] [place] [facility] [address] [id number] [place] [address] Feb, [facility] [place] [facility] [address] [id number] [place] [address] Feb, [facility] [address] [id number] [place] [address] Feb, [facility] [place] [facility] [address] [id number] [place] [address] Feb, [facility] [place] [facility] [address] [id number] [place] [address] Feb, [facility] [place] [facility] [address] [facility] [id number] [place] [address] Feb, [facility] [place] [facility] [address] [id number] [place] [address] Feb, [facility] [place] [facility] [address] [id number], [place] [address] Feb, [facility] [place] [facility] [address] [id number] [place] [address] 10 Jan, 2012 [facility] [place] [facility] [address] [id number] [place] [address] 07 Jan, 2012 [facility] [place] [facility] [address] [id number], [place] [address] Aug, [facility] [address] [facility] [id number], [place] [address] Aug, [facility] [address] [facility] [id number], [place] [address] Aug, [facility] [address] [place] [id number], [place] [address] Aug, [facility] [address] [place] [id number], [place] [address] September, IMMUNIZATIONS Vaccine Route Administration Date Status FLULAVAL QUAD (6 MO AND UP) 2016 IM Intramuscular Jun 23, 2017 Administered PCV 13 IM Intramuscular Jun 23, 2017 Administered TDAP (BOOSTRIX) IM Intramuscular Jun 23, 2017 Administered TWINRIX (HEP A/B) IM Intramuscular Jun 23, 2017 Administered SOCIAL HISTORY Never Assessed REASON FOR VISIT Medicare AWV - Initial Visit--[facility] PLAN OF CARE Activity Details Follow Up 1 Year Reason:Subsequent Visit VITAL SIGNS Height 72 in 2017-06-23 Weight 285.6 lbs 2017-06-23 Temperature 97.9 degrees Fahrenheit 2017-06-23 Heart Rate 74 bpm 2017-06-23 Respiratory Rate 20 2017-06-23 BMI 38.73 kg/m2 2017-06-23 Blood pressure systolic 110 mmHg 2017-06-23 Blood pressure diastolic 82 mmHg 2017-06-23 MEDICATIONS Medication Instructions Dosage Frequency Start Date End Date Duration Status Atorvastatin Calcium 10 mg Orally Once a day 1 tablet 24h Oct, 90 days Not-Taking Lisinopril-Hydrochlorothiazide 20-25 MG TAKE ONE TABLET BY MOUTH ONCE DAILY 90 Active Lisinopril-Hydrochlorothiazide 20-25 MG Orally Once a day TAKE ONE TABLET BY MOUTH ONCE DAILY 24h 90 days Active RESULTS No Results PROCEDURES Procedure Date Ordered Result Body Site IMMUNIZATION ADMIN, EACH ADD (please include units) Jun 23, 2017 ANNUAL JAIMIE VST; PERSNL PPS INIT Jun 23, 2017 FALL RISK ASSESSMENT DOCD Jun 23, 2017 TWINRIX (HEP A/B) Jun 23, 2017 PCV 13 Jun 23, 2017 SINGLE IMMUNIZATION ADMIN Jun 23, 2017 NEG SCR D PT NOT ELIG F/U/PLN DOC Jun 23, 2017 PT TOBACCO SCREEN RCVD TLK Jun 23, 2017 TDAP (BOOSTRIX) Jun 23, 2017 FLULAVAL QUAD (6 MO AND UP) 2016Jun 23, 2017 INSTRUCTIONS MEDICATIONS ADMINISTERED No Known Medications [...]
--- OUTSIDE RECORDS SUMMARY | 2018-11-15 01:35 | XMS REPORT ---
Author Author [facility] Address [address] [place] [address] Care Team Providers Care Plumbing Inspector Name Role Phone [facility] Unavailable PROBLEMS Type Condition ICD9-CM Code JTO24-XF Code Onset Dates Condition Status SNOMED Code Problem Osteoarthritis M19.90 Active 910397633 Problem Pain of left calf M79.662 Active [id number] Problem Morbid (severe) obesity due to excess calories E66.01 Active 810947909 Problem Mixed hyperlipidemia E78.2 Active 611119465 Problem Medicare annual wellness visit, subsequent Z00.00 Active 795482220 Problem Essential hypertension I10 Active 67366206 Problem Body mass index (BMI) of 40.0-44.9 in adult Z68.41 Active 694137776 Problem Facial droop R29.810 Active 51091605 ALLERGIES No Information ENCOUNTERS Encounter Location Date Diagnosis [place] [address] [address] Nov, [place] [address] [address] Oct, [place] [address] [place] [id number] [place] [address] September, [facility] [address] [address] Aug, [place] [address] [address] Aug, Essential hypertension I10 ; Osteoarthritis M19.90 ; Body mass index (BMI) of 40.0-44.9 in adult Z68.41 ; Morbid (severe) obesity due to excess calories E66.01 ; Mixed hyperlipidemia E78.2 and Facial droop R29.810 [facility] [address] [place] [id number] [place] [address] Jun, Encounter for immunization Z23 [facility] [address] [address] Jun, Pain of left calf M79.662 [facility] [address] [place] [id number] [place] [address] 15 Jun, 2017 Medicare annual wellness visit, initial Z00.00 ; Essential hypertension I10 ; Osteoarthritis M19.90 ; Encounter for immunization Z23 and Body mass index (BMI) of 38.0-38.9 in adult Z68.38 [facility] [address] [address] May, Pain of left calf M79.662 [facility] [address] [place] [id number] [place] [address] May, Pain of left calf M79.662 [facility] [address] [place] [id number] [place] [address] May, Acute nasopharyngitis J00 [facility] [address] [place] [id number] [place] [address] Mar, Pain of left calf M79.662 [facility] [address] [place] [id number] [place] [address] Feb, Cramps of left lower extremity R25.2 [facility] [address] [place] [id number] [place] [address] Feb, Cramps of left lower extremity R25.2 [facility] [address] [place] [id number] [place] [address] Feb, [facility] [address] [place] [id number] [place] [address] Jan, Cramps of left lower extremity R25.2 [facility] [address] [address] Nov, [facility] [address] [address] Nov, [facility] [address] [place] [id number] [place] [address] Nov, Pain of left calf M79.662 [facility] [address] [place] [id number] [place] [address] Oct, [facility] [address] [place] [id number] [place] [address] Oct, [facility] [address] [place] [id number] [place] [address] Oct, Essential hypertension I10 ; Cramps of left lower extremity R25.2 and Morbid (severe) obesity due to excess calories E66.01 [facility] [address] [place] [id number] [place] [address] Oct, Cramps of left lower extremity R25.2 ; Essential hypertension I10 and Morbid (severe) obesity due to excess calories E66.01 [facility] [address] [place] [id number] [place] [address] Aug, [facility] [address] [place] [id number] [place] [address] Aug, Cramps of left lower extremity R25.2 [facility] [address] [place] [id number] [place] [address] Jul, Pain in left shoulder M25.512 [facility] [id number] [place] [address] Jul, Tear of left rotator cuff, unspecified tear extent M75.102 [facility] [address] [place] [id number] [place] [address] 15 Jun, 2016 Pain in left shoulder M25.512 [facility] [address] [place] [id number] [place] [address] Jun, Essential hypertension I10 ; Pain in left shoulder M25.512 and Morbid (severe) obesity due to excess calories E66.01 [place] [address] [place] [id number] [place] [address] May, Pain in left shoulder M25.512 [place] [address] [place] [id number] [place] [address] May, Tear of left rotator cuff, unspecified tear extent M75.102 [place] [address] [place] [id number] [place] [address] Apr, Medicare annual wellness visit, subsequent Z00.00 ; Body mass index (BMI) of 40.0-44.9 in adult Z68.41 ; Morbid (severe) obesity due to excess calories E66.01 ; Essential hypertension I10 ; Pain in left shoulder M25.512 and Other chronic pain G89.29 [place] [address] [place] [id number] [place] [address] Apr, Osteoarthritis M19.90 [place] [address] [place] [id number] [place] [address] Apr, Tear of left rotator cuff, unspecified tear extent M75.102 [place] [address] [place] [id number] [place] [address] Apr, Tear of left rotator cuff, unspecified tear extent M75.102 [place] [address] [place] [id number] [place] [address] Mar, Tear of left rotator cuff, unspecified tear extent M75.102 [place] [address] [place] [id number] [place] [address] Mar, Tear of left rotator cuff, unspecified tear extent M75.102 [place] [address] [place] [id number] [place] [address] Mar, Tear of left rotator cuff, unspecified tear extent M75.102 [place] [address] [place] [id number] [place] [address] Mar, Tear of left rotator cuff, unspecified tear extent M75.102 [facility] [address] [place] [id number] Mar, Essential hypertension I10 ; Obesity E66.9 and Bacterial conjunctivitis of both eyes H10.9 [facility] [address] [place] [id number] [place] [id number] Feb, Tear of left rotator cuff, unspecified tear extent M75.102 [facility] [address] [place] [id number] [place] [address] Feb, Tear of left rotator cuff, unspecified tear extent M75.102 [place] [address] [place] [id number] [place] [address] Feb, Tear of left rotator cuff, unspecified tear extent M75.102 [place] [address] [address] Feb, Tear of left rotator cuff, unspecified tear extent M75.102 [facility] [address] [place] [id number] [place] [address] Jan, Tear of left rotator cuff, unspecified tear extent M75.102 [facility] [address] [place] [id number] [place] [address] Jan, Tear of left rotator cuff, unspecified tear extent M75.102 [facility] [address] [place] [id number] [place] [address] Jan, Tear of left rotator cuff, unspecified tear extent M75.102 [facility] [address] [place] [id number] [place] [address] Jan, Tear of left rotator cuff, unspecified tear extent M75.102 [facility] [address] [place] [id number] [place] [address] Dec, [facility] [address] [place] [id number] [place] [address] Dec, Tear of left rotator cuff, unspecified tear extent M75.102 [facility] [address] [place] [id number] [place] [address] Dec, Essential hypertension I10 ; Osteoarthritis M19.90 and Obesity E66.9 [facility] [address] [place] [id number] [place] [address] September, Essential hypertension I10 and Obesity E66.9 [facility] [address] [place] [id number] [place] [address] Jun, Essential hypertension I10 ; Obesity E66.9 and Osteoarthritis M19.90 [place] [address] [place] [id number] [place] [address] Jun, [place] [address] [place] [id number] [place] [address] May, Tear of left rotator cuff, unspecified tear extent M75.102 [place] [address] [place] [id number] [place] [address] May, Muscle spasm M62.838 [place] [address] [place] [id number] [place] [address] Apr, [place] [address] [place] [id number] [place] [address] Apr, Essential hypertension I10 [facility] [address] [id number] [id number] Feb, Dental examination Z01.20 and Dental caries, unspecified K02.9 [place] [id number] [place] [address] Jan, Impacted cerumen of both ears 380.4 [facility] [address] [id number] [id number] Jan, Dental examination V72.2 [place] [address] [place] [id number] [place] [address] Jan, Impacted cerumen of both ears 380.4 [facility] [address] [place] [id number] [place] [address] Oct, Essential hypertension, benign 401.1 [facility] [address] [facility] [id number] [address] Aug, [facility] [address] [place] [id number] [place] [address] Aug, [facility] [address] [facility] [id number] [place] [address] Jul, [facility] [address] [place] [id number] [place] [address] Jul, [facility] [address] [place] [id number] [place] [address] Jun, [facility] [address] [place] [id number] [place] [address] Jun, [facility] [address] [address] Mar, [facility] [address] [address] Mar, [facility] [address] [address] Jul, [facility] [address] [place] [id number] [address] Jul, [facility] [address] [place] [id number] [address] Jun, [facility] [address], [place] [address] Jun, [facility] [address], [place] [address] Jun, [facility] [address] [address] Jun, 2013 [facility] [address] [id number] [place] [address] Jun, [facility] [place] [facility] [address] [id number] [place] [address] Jun, [facility] [address] [id number] [place] [address] Feb, [facility] [place] [facility] [address] [id number] [place] [address] Feb, [facility] [place] [facility] [address] [id number] [place] [address] Feb, [facility] [place] [facility] [address] [id number] [place] [address] Feb, [facility] [address] [id number] [place] [address] Feb, [facility] [place] [facility] [address] [id number] [place] [address] Feb, [facility] [place] [facility] [address] [id number] [place] [address] Feb, [facility] [place] [facility] [address] [facility] [id number] [place] [address] Feb, [facility] [place] [facility] [address] [id number] [place] [address] 05 Feb, 2013 [facility] [place] [facility] [address] [id number], [place] [address] Feb, [facility] [place] [facility] [address] [id number], [place] [address] 10 Jan, 2012 [facility] [place] [facility] [address] [id number] [place] [address] 07 Jan, 2012 [facility] [place] [facility] [address] [facility] [id number], [place] [address] Aug, [facility] [place] [facility] [address] [facility] [id number], [place] [address] Aug, [facility] [address] [facility] [id number], [place] [address] Aug, [facility] [address] [facility] [id number], [place] [address] Aug, [facility] [address] [facility] [id number], [place] [address] September, IMMUNIZATIONS Vaccine Route Administration Date Status ZOSTER (ZOSTAVAX) SC Subcutaneous Jun 27, 2017 Administered SOCIAL HISTORY Never Assessed REASON [facility] VISIT [facility] VITAL SIGNS MEDICATIONS Medication Instructions Dosage Frequency Start Date End Date Duration Status Atorvastatin Calcium 10 mg Orally Once a day 1 tablet 24h Oct, 90 days Unknown Lisinopril-Hydrochlorothiazide 20-25 MG TAKE ONE TABLET BY MOUTH ONCE DAILY 90 Unknown RESULTS No Results PROCEDURES Procedure Date Ordered Result Body Site ZOSTER (ZOSTAVAX) Jun 27, 2017 SINGLE IMMUNIZATION ADMIN Jun 27, 2017 INSTRUCTIONS MEDICATIONS ADMINISTERED No [...]
--- OUTSIDE RECORDS SUMMARY | 2018-11-15 01:36 | XMS REPORT ---
Author Author BIBIANA DANGELO [facility] Address [address] [place] [address] Care Team Providers Care Housekeeping Laundry Worker Name Role Phone LORETO BIBIANA Unavailable PROBLEMS Type Condition ICD9-CM Code LHS92-NL Code Onset Dates Condition Status SNOMED Code Problem Osteoarthritis M19.90 Active 735213785 Problem Pain of left calf M79.662 Active 0259402625956133 Problem Morbid (severe) obesity due to excess calories E66.01 Active 070173709 Problem Mixed hyperlipidemia E78.2 Active 536846941 Problem Medicare annual wellness visit, subsequent Z00.00 Active 748981074 Problem Essential hypertension I10 Active 16151061 Problem Body mass index (BMI) of 40.0-44.9 in adult Z68.41 Active 891587380 Problem Facial droop R29.810 Active 71700022 ALLERGIES No Information ENCOUNTERS Encounter Location Date Diagnosis [place] [id number] [address] September, [facility] [address] [address] Aug, [facility] [address] [address] Aug, Essential hypertension I10 ; Osteoarthritis M19.90 ; Body mass index (BMI) of 40.0-44.9 in adult Z68.41 ; Morbid (severe) obesity due to excess calories E66.01 ; Mixed hyperlipidemia E78.2 and Facial droop R29.810 [facility] [address] [address] Jun, Encounter for immunization Z23 [facility] [address] [address] Jun, [facility] [address] [address] 15 Jun, 2017 Medicare annual wellness visit, initial Z00.00 ; Essential hypertension I10 ; Osteoarthritis M19.90 ; Encounter for immunization Z23 and Body mass index (BMI) of 38.0-38.9 in adult Z68.38 [facility] [address] [place] [id number] [address] May, Pain of left calf M79.662 [facility] [address] [place] [id number] [place] [address] May, Pain of left calf M79.662 [facility] [address] [place] [address] [id number] [place] [address] May, Acute nasopharyngitis J00 [facility] [address] [place] [id number] [place] [address] Mar, Pain of left calf M79.662 [facility] [address] [place] [id number] [place] [address] Feb, Cramps of left lower extremity R25.2 [facility] [address] [place] [id number] [place] [address] Feb, Cramps of left lower extremity R25.2 [facility] [address] [place] [id number] [place] [address] Feb, [facility] [address] [id number] [place] [address] Jan, Cramps of left lower extremity R25.2 [facility] [address] [place] [id number] [place] [address] Nov, [facility] [address] [place] [id number] [place] [address] Nov, [facility] [address] [id number] [place] [address] Nov, Pain of left calf M79.662 [facility] [address] [address] Oct, [facility] [id number] [place] [address] Oct, [facility] [address] [id number] [place] [address] Oct, Essential hypertension I10 ; Cramps of left lower extremity R25.2 and Morbid (severe) obesity due to excess calories E66.01 [facility] [id number] [place] [address] Oct, Cramps of left lower extremity R25.2 ; Essential hypertension I10 and Morbid (severe) obesity due to excess calories E66.01 [facility] [address] [place] [id number] [place] [address] Aug, [facility] [address] [place] [id number] [place] [address] Aug, Cramps of left lower extremity R25.2 [facility] [address] [place] [id number] [place] [address] Jul, Pain in left shoulder M25.512 [facility] [address] [place] [id number] [place] [address] Jul, Tear of left rotator cuff, unspecified tear extent M75.102 [facility] [address] [place] [id number] [place] [address] Jun, Pain in left shoulder M25.512 [facility] [address] [id number] [place] [address] Jun, Essential hypertension I10 ; Pain in left shoulder M25.512 and Morbid (severe) obesity due to excess calories E66.01 [facility] [address] [place] [address] May, Pain in left shoulder M25.512 [place] [address] [place] [id number] [place] [address] May, Tear of left rotator cuff, unspecified tear extent M75.102 [place] [address] [place] [id number] [place], [place] [address] Apr, Medicare annual wellness visit, subsequent Z00.00 ; Body mass index (BMI) of 40.0-44.9 in adult Z68.41 ; Morbid (severe) obesity due to excess calories E66.01 ; Essential hypertension I10 ; Pain in left shoulder M25.512 and Other chronic pain G89.29 [place] [address] [place] [id number] [place] [address] Apr, Osteoarthritis M19.90 [place] [address] [place] [id number] [place] [address] Apr, Tear of left rotator cuff, unspecified tear extent M75.102 [place] [address] [place] [id number] [place] [address] Apr, Tear of left rotator cuff, unspecified tear extent M75.102 [place] [address] [place] [id number] [place] [address] Mar, Tear of left rotator cuff, unspecified tear extent M75.102 [place] [address] [place] [id number] [place] [address] Mar, Tear of left rotator cuff, unspecified tear extent M75.102 [place] [address] [place] [id number] [place] [address] Mar, Tear of left rotator cuff, unspecified tear extent M75.102 [place] [address] [place] [id number] [place] [address] Mar, Tear of left rotator cuff, unspecified tear extent M75.102 [place] [address] [place] [id number] [place] [address] 08 Mar, 2016 Essential hypertension I10 ; Obesity E66.9 and Bacterial conjunctivitis of both eyes H10.9 [facility] [address] [id number] [place] [address] 31 Feb, 2016 Tear of left rotator cuff, unspecified tear extent M75.102 [facility] [address] [place] [id number] [place] [id number] 17 Feb, 2016 Tear of left rotator cuff, unspecified tear extent M75.102 [place] [address] Feb, Tear of left rotator cuff, unspecified tear extent M75.102 [place] [address] [place] [id number] [place] [id number] Feb, Tear of left rotator cuff, unspecified tear extent M75.102 [place] [address] [place] [id number] [place] [id number] Jan, Tear of left rotator cuff, unspecified tear extent M75.102 [place] [address] [place] [id number] [place] [id number] Jan, Tear of left rotator cuff, unspecified tear extent M75.102 [place] [address] [place] [id number] [place] [id number] Jan, Tear of left rotator cuff, unspecified tear extent M75.102 [place] [address] [place] [id number] [place] [address] Jan, Tear of left rotator cuff, unspecified tear extent M75.102 [place] [address] [place] [id number] [place] [address] Dec, [place] [address] [place] [id number] [place] [address] Dec, Tear of left rotator cuff, unspecified tear extent M75.102 [place] [address] [place] [id number] [place] [address] Dec, Essential hypertension I10 ; Osteoarthritis M19.90 and Obesity E66.9 [facility] [address] [place] [id number] [place] [address] September, Essential hypertension I10 and Obesity E66.9 [facility] [address] [place] [id number] [place] [address] Jun, Essential hypertension I10 ; Obesity E66.9 and Osteoarthritis M19.90 [place] [address] [address] Jun, [place] [address] [address] May, Tear of left rotator cuff, unspecified tear extent M75.102 [place] [address] [place] [id number] [place] [address] May, Muscle spasm M62.838 [place] [address] [place] [id number] [place] [address] Apr, [place] [address] [place] [id number] [place] [address] Apr, Essential hypertension I10 [address] [place] [id number] Feb, Dental examination Z01.20 and Dental caries, unspecified K02.9 [place] [address] [place] [address] 28 Jan, 2015 Impacted cerumen of both ears 380.[address] [id number] [id number] 17 Jan, 2015 Dental examination V72.2 [place] [address] [address] 14 Jan, 2015 Impacted cerumen of both ears 380.4 [place] [address] [place] [id number] [place] [address] 02 Oct, 2014 Essential hypertension, benign 401.1 [place] [address] [place] [address] 14 Aug, 2014 [facility] [place] [facility] [address] [id number] [place] [address] 13 Aug, 2014 [facility] [place] [facility] [address] [id number] [place] [address] Jul, [facility] [place] [facility] [address] [id number] [place] [address] Jul, 2014 [facility] [place] [facility] [address] [id number] [place] [address] Jun, [facility] [place] [facility] [address] [id number] [place] [address] Jun, [facility] [place] [facility] [address] [facility] [id number] [place] [address] Mar, [facility] [place] [facility] [address] [facility] [id number] [place] [address] Mar, [facility] [place] [facility] [address] [id number] [place] [address] Jul, [facility] [place] [facility] [address] [facility] [id number] [place] [address] Jul, [facility] [place] [facility] [address] [facility] [id number] [place] [address] Jun, [facility] [place] [facility] [address] [id number] [place] [address] Jun, [facility] [place] [facility] [address] [id number] [place] [address] Jun, [facility] [place] [facility] [address] [id number] [place] [address] Jun, [facility] [place] [facility] [address] [facility] [id number] [place] [address] Jun, [facility] [place] [facility] [address] [facility] [id number] [place] [address] Jun, [facility] [place] [facility] [address] [id number] [place] [address] Feb, [facility] [place] [facility] [address] [id number] [place] [address] Feb, [facility] [place] [facility] [address] [id number] [place] [address] Feb, [facility] [place] [facility] [address] [id number] [place] [address] Feb, [facility] [place] [facility] [address] [id number] [place] [address] Feb, [facility] [place] [facility] [address] [id number] [place] [address] Feb, [facility] [place] [facility] [address] [id number] [place] [address] Feb, [facility] [place] [facility] [address] [id number] [place] [address] Feb, [facility] [place] [facility] [address] [id number] [place] [address] 05 Feb, 2013 [facility] [place] [facility] [address] [id number] [address] Feb, [facility] [place] [facility] [address] [id number] [address] 10 Jan, 2012 [facility] [place] [facility] [address] [id number] [address] 07 Jan, 2012 [facility] [place] [facility] [address] [id number] [place] [address] 23 Aug, 2011 [facility] [place] [facility] [address] [id number] [place] [address] 16 Aug, 2011 [facility] [place] [facility] [address] [id number] [place] [address] 16 Aug, 2011 [facility] [place] [facility] [address] [facility] [id number] [place] [address] Aug, [facility] [address] [facility] [id number] [place] [address] September, IMMUNIZATIONS No Known Immunizations SOCIAL HISTORY Never Assessed REASON FOR VISIT Requests return call PLAN OF CARE VITAL SIGNS MEDICATIONS Unknown [...]
--- OUTSIDE RECORDS SUMMARY | 2018-11-15 01:36 | XMS REPORT ---
Author Author BIBIANA DANGELO [facility] Address [address] [place] [address] Care Team Providers Care Duct Cleaner Name Role Phone LORETO BIBIANA Unavailable PROBLEMS Type Condition ICD9-CM Code SPU07-ZY Code Onset Dates Condition Status SNOMED Code Problem Osteoarthritis M19.90 Active 268869277 Problem Pain of left calf M79.662 Active 6910859322130307 Problem Morbid (severe) obesity due to excess calories E66.01 Active 180668924 Problem Mixed hyperlipidemia E78.2 Active 438807055 Problem Medicare annual wellness visit, subsequent Z00.00 Active 331423216 Problem Essential hypertension I10 Active 08862305 Problem Body mass index (BMI) of 40.0-44.9 in adult Z68.41 Active 533217153 Problem Facial droop R29.810 Active 59265963 ALLERGIES No Information ENCOUNTERS Encounter Location Date Diagnosis [place] [address] [address] September, [facility] [address] [address] Aug, [facility] [address] [address] Aug, Essential hypertension I10 ; Osteoarthritis M19.90 ; Body mass index (BMI) of 40.0-44.9 in adult Z68.41 ; Morbid (severe) obesity due to excess calories E66.01 ; Mixed hyperlipidemia E78.2 and Facial droop R29.810 [facility] [address] [address] Jun, Encounter for immunization Z23 [facility] [address] [address] Jun, [facility] [address] [address] 15 Jun, 2017 Medicare annual wellness visit, initial Z00.00 ; Essential hypertension I10 ; Osteoarthritis M19.90 ; Encounter for immunization Z23 and Body mass index (BMI) of 38.0-38.9 in adult Z68.38 [facility] [id number] [address] May, Pain of left calf M79.662 [facility] [id number] [place] [address] May, Pain of left calf M79.662 [facility] [id number] [place] [address] May, Acute nasopharyngitis J00 [facility] [id number] [place] [address] Mar, Pain of left calf M79.662 [facility] [id number] [place] [address] Feb, Cramps of left lower extremity R25.2 [facility] [id number] [place] [address] Feb, Cramps of left lower extremity R25.2 [facility] [id number] [place] [address] Feb, [facility] [id number] [place] [address] Jan, Cramps of left lower extremity R25.2 [facility] [id number] [place] [address] Nov, [facility] [id number] [place] [address] Nov, [facility] [id number] [place] [address] Nov, Pain of left calf M79.662 [facility] [address] [address] Oct, [facility] [id number] [place] [address] Oct, [facility] [id number] [place] [address] Oct, Essential hypertension I10 ; Cramps of left lower extremity R25.2 and Morbid (severe) obesity due to excess calories E66.01 [facility] [id number] [place] [address] Oct, Cramps of left lower extremity R25.2 ; Essential hypertension I10 and Morbid (severe) obesity due to excess calories E66.01 [facility] [id number] [place] [address] Aug, [facility] [id number] [place] [address] Aug, Cramps of left lower extremity R25.2 [facility] [id number] [place] [address] Jul, Pain in left shoulder M25.512 [facility] [id number] [place] [address] Jul, Tear of left rotator cuff, unspecified tear extent M75.102 [facility] [id number] [place] [address] Jun, Pain in left shoulder M25.512 [facility] [id number] [place] [address] Jun, Essential hypertension I10 ; Pain in left shoulder M25.512 and Morbid (severe) obesity due to excess calories E66.01 [facility] [address] [place] [address] May, Pain in left shoulder M25.512 [place] [address] [id number] [place] [address] May, Tear of left rotator cuff, unspecified tear extent M75.102 [place] [address] [id number] [place], [place] [address] Apr, Medicare annual wellness visit, subsequent Z00.00 ; Body mass index (BMI) of 40.0-44.9 in adult Z68.41 ; Morbid (severe) obesity due to excess calories E66.01 ; Essential hypertension I10 ; Pain in left shoulder M25.512 and Other chronic pain G89.29 [place] [address] [place] [id number] [place] [address] Apr, Osteoarthritis M19.90 [place] [address] [place] [id number] [place] [address] Apr, Tear of left rotator cuff, unspecified tear extent M75.102 [place] [address] [place] [id number] [place] [address] Apr, Tear of left rotator cuff, unspecified tear extent M75.102 [place] [address] [place] [id number] [place] [address] Mar, Tear of left rotator cuff, unspecified tear extent M75.102 [place] [address] [place] [id number] [place] [address] Mar, Tear of left rotator cuff, unspecified tear extent M75.102 [place] [address] [place] [id number] [place] [address] Mar, Tear of left rotator cuff, unspecified tear extent M75.102 [place] [address] [address] [id number] [place] [address] Mar, Tear of left rotator cuff, unspecified tear extent M75.102 [place] [address] [place] [id number] [place] [address] 08 Mar, 2016 Essential hypertension I10 ; Obesity E66.9 and Bacterial conjunctivitis of both eyes H10.9 [facility] [id number] [place] [address] 31 Feb, 2016 Tear of left rotator cuff, unspecified tear extent M75.102 [facility] [id number] [place] [id number] 17 Feb, 2016 Tear of left rotator cuff, unspecified tear extent M75.102 [place] [address] Feb, Tear of left rotator cuff, unspecified tear extent M75.102 [place] [address] [address] [id number] [place] [id number] Feb, Tear of left rotator cuff, unspecified tear extent M75.102 [place] [address] [id number] [place] [id number] Jan, Tear of left rotator cuff, unspecified tear extent M75.102 [place] [address] [place] [id number] [place] [id number] Jan, Tear of left rotator cuff, unspecified tear extent M75.102 [place] [address] [place] [id number] [place] [id number] Jan, Tear of left rotator cuff, unspecified tear extent M75.102 [place] [address] [place] [id number] [place] [address] Jan, Tear of left rotator cuff, unspecified tear extent M75.102 [place] [address] [place] [id number] [place] [address] Dec, [place] [address] [place] [id number] [place] [address] Dec, Tear of left rotator cuff, unspecified tear extent M75.102 [place] [address] [place] [id number] [place], [place] [address] Dec, Essential hypertension I10 ; Osteoarthritis M19.90 and Obesity E66.9 [facility] [id number] [place] [address] September, Essential hypertension I10 and Obesity E66.9 [facility] [address] [place] [id number] [place], [place] [address] Jun, Essential hypertension I10 ; Obesity E66.9 and Osteoarthritis M19.90 [place] [address] [address] Jun, [place] [address] [address] May, Tear of left rotator cuff, unspecified tear extent M75.102 [place] [address] [place] [id number] [place] [address] May, Muscle spasm M62.838 [place] [address] [place] [id number] [place] [address] Apr, [place] [address] [place] [id number] [place] [address] Apr, Essential hypertension I10 [address] [place] [id number] Feb, Dental examination Z01.20 and Dental caries, unspecified K02.9 [place] [address] [place] [address] 28 Jan, 2015 Impacted cerumen of both ears 380.[address] [id number] [id number] 17 Jan, 2015 Dental examination V72.2 [place] [address] [address] 14 Jan, 2015 Impacted cerumen of both ears 380.4 [place] [address] [id number] [place] [address] 02 Oct, 2014 Essential hypertension, benign 401.1 [place] [address] [place] [address] 14 Aug, 2014 [facility] [place] [facility] [address] [id number] [place] [address] 13 Aug, 2014 [facility] [place] [facility] [address] [id number] [place] [address] Jul, [facility] [place] [facility] [address] [id number] [place] [address] Jul, 2014 [facility] [place] [facility] [address] [id number] [place] [address] Jun, [facility] [place] [facility] [address] [id number] [place] [address] Jun, [facility] [place] [facility] [address] [facility] [id number] [place] [address] Mar, [facility] [place] [facility] [address] [facility] [facility] [id number] [place] [address] Mar, [facility] [place] [facility] [address] [id number] [place] [address] Jul, [facility] [place] [facility] [address] [facility] [facility] [id number] [place] [address] Jul, [facility] [place] [facility] [address] [facility] [facility] [id number] [place] [address] Jun, [facility] [place] [facility] [address] [id number] [place] [address] Jun, [facility] [place] [facility] [address] [id number] [place] [address] Jun, [facility] [place] [facility] [address] [id number] [place] [address] Jun, [facility] [place] [facility] [address] [facility] [facility] [id number] [place] [address] Jun, [facility] [place] [facility] [address] [facility] [facility] [id number] [place] [address] Jun, [facility] [place] [facility] [address] [id number] [place] [address] Feb, [facility] [place] [facility] [address] [id number] [place] [address] Feb, [facility] [place] [facility] [address] [id number] [place] [address] Feb, [facility] [place] [facility] [address] [id number] [place] [address] Feb, [facility] [place] [facility] [address] [id number] [place] [address] Feb, [facility] [place] [facility] [address] [id number] [place] [address] Feb, [facility] [place] [facility] [address] [id number] [place] [address] Feb, [facility] [place] [facility] [address] [id number] [place] [address] Feb, [facility] [place] [facility] [address] [id number] [place] [address] 05 Feb, 2013 [facility] [place] [facility] [address] [id number] [address] Feb, [facility] [place] [facility] [address] [id number], [place] [address] 10 Jan, 2012 [facility] [place] [facility] [address] [id number], [place] [address] 07 Jan, 2012 [facility] [place] [facility] [address] [id number] [place] [address] 23 Aug, 2011 [facility] [place] [facility] [address] [id number], [place] [address] 16 Aug, 2011 [facility] [place] [facility] [address] [id number], [place] [address] 16 Aug, 2011 [facility] [place] [facility] [address] [facility] [facility] [id number] [place] [address] Aug, [facility] [address] [facility] [address] [facility] [id number] [place] [address] September, IMMUNIZATIONS No Known Immunizations SOCIAL HISTORY Never Assessed REASON FOR VISIT PT follow-up PLAN OF CARE Activity Details Follow Up 1 Week Reason:F/U PT VITAL SIGNS MEDICATIONS Unknown Medications RESULTS No Results PROCEDURES Procedure Date Ordered Result Body Site THERAPEUTIC EXERCISES Jun 23, 2016 INSTRUCTIONS MEDICATIONS ADMINISTERED No Known Medications MEDICAL [...]
--- OUTSIDE RECORDS SUMMARY | 2018-11-15 01:37 | XMS REPORT ---
Author Author CARLA SERRATO [facility] Address [address] [place] [address] Care Team Providers Care Staff Physical Therapy Assistant Name Role Phone CARLA SERRATO Unavailable PROBLEMS Type Condition ICD9-CM Code GYC25-GO Code Onset Dates Condition Status SNOMED Code Problem Osteoarthritis M19.90 Active 826509073 Problem Pain of left calf M79.662 Active 8016234885183446 Problem Morbid (severe) obesity due to excess calories E66.01 Active 329367159 Problem Mixed hyperlipidemia E78.2 Active 783534582 Problem Medicare annual wellness visit, subsequent Z00.00 Active 965998801 Problem Essential hypertension I10 Active 83006755 Problem Body mass index (BMI) of 40.0-44.9 in adult Z68.41 Active 228051875 Problem Facial droop R29.810 Active 65911451 ALLERGIES No Known Allergies ENCOUNTERS Encounter Location Date Diagnosis [place] [address] [address] Oct, [place] [address] [address] September, [place] [address] [address] Aug, [place] [address] [address] Aug, Essential hypertension I10 ; Osteoarthritis M19.90 ; Body mass index (BMI) of 40.0-44.9 in adult Z68.41 ; Morbid (severe) obesity due to excess calories E66.01 ; Mixed hyperlipidemia E78.2 and Facial droop R29.810 [place] [address] [address] Jun, Encounter for immunization Z23 [facility] [address] [place] [id number] [place] [address] Jun, Pain of left calf M79.662 [facility] [address] [place] [id number] [place] [address] 15 Jun, 2017 Medicare annual wellness visit, initial Z00.00 ; Essential hypertension I10 ; Osteoarthritis M19.90 ; Encounter for immunization Z23 and Body mass index (BMI) of 38.0-38.9 in adult Z68.38 [facility] [address] [place] [id number] [place] [address] May, Pain of left calf M79.662 [facility] [address] [address] May, Pain of left calf M79.662 [facility] [address] [address] May, Acute nasopharyngitis J00 [facility] [address] [address] Mar, Pain of left calf M79.662 [facility] [address] [place] [id number] [place] [address] Feb, Cramps of left lower extremity R25.2 [facility] [address] [id number] [place] [address] Feb, Cramps of left lower extremity R25.2 [facility] [address] [id number] [place] [address] Feb, [facility] [address] [address] Jan, Cramps of left lower extremity R25.2 [facility] [address] [address] Nov, [facility] [address] [place] [address] Nov, [facility] [address] [place] [id number] [place] [address] Nov, Pain of left calf M79.662 [facility] [address] [address] Oct, [facility] [address] [place] [id number] [place] [address] Oct, [facility] [address] [place] [id number] [place] [address] Oct, Essential hypertension I10 ; Cramps of left lower extremity R25.2 and Morbid (severe) obesity due to excess calories E66.01 [facility] [id number] [place] [address] Oct, Cramps of left lower extremity R25.2 ; Essential hypertension I10 and Morbid (severe) obesity due to excess calories E66.01 [facility] [address] [id number] [address] Aug, [facility] [address] [place] [id number] [place] [address] Aug, Cramps of left lower extremity R25.2 [facility] [address] [address] Jul, Pain in left shoulder M25.512 [facility] [address] [place] [id number] [place] [address] Jul, Tear of left rotator cuff, unspecified tear extent M75.102 [facility] [address] [place] [id number] [place] [address] 15 Jun, 2016 Pain in left shoulder M25.512 [facility] [address] [address] 09 Jun, 2016 Essential hypertension I10 ; Pain in left shoulder M25.512 and Morbid (severe) obesity due to excess calories E66.01 [place] [id number] [place] [address] May, Pain in left shoulder M25.512 [place] [address] [place] [id number] [place] [address] May, Tear of left rotator cuff, unspecified tear extent M75.102 [place] [address] [address] Apr, Medicare annual wellness visit, subsequent Z00.00 ; Body mass index (BMI) of 40.0-44.9 in adult Z68.41 ; Morbid (severe) obesity due to excess calories E66.01 ; Essential hypertension I10 ; Pain in left shoulder M25.512 and Other chronic pain G89.29 [place] [address] [place] [id number] [place] [address] Apr, Osteoarthritis M19.90 [place] [address] [place] [id number] [place] [address] Apr, Tear of left rotator cuff, unspecified tear extent M75.102 [place] [address] [place] [id number] [place] [address] Apr, Tear of left rotator cuff, unspecified tear extent M75.102 [place] [address] [place] [id number] [place] [address] Mar, Tear of left rotator cuff, unspecified tear extent M75.102 [place] [address] [place] [id number] [place] [address] Mar, Tear of left rotator cuff, unspecified tear extent M75.102 [place] [address] [place] [id number] [place] [address] Mar, Tear of left rotator cuff, unspecified tear extent M75.102 [place] [address] [place] [id number] [place] [address] Mar, Tear of left rotator cuff, unspecified tear extent M75.102 [place] [address] [place] [id number] [place], [place] [address] Mar, Essential hypertension I10 ; Obesity E66.9 and Bacterial conjunctivitis of both eyes H10.9 [facility] [address] [place] [id number] [place] [id number] Feb, Tear of left rotator cuff, unspecified tear extent M75.102 [place] [address] [place] [id number] [place] [id number] Feb, Tear of left rotator cuff, unspecified tear extent M75.102 [place] [address] Feb, Tear of left rotator cuff, unspecified tear extent M75.102 [place] [address] [place] [id number] [place] [address] Feb, Tear of left rotator cuff, unspecified tear extent M75.102 [place] [address] [place] [id number] [place] [address] Jan, Tear of left rotator cuff, unspecified tear extent M75.102 [place] [address] [place] [id number] [place] [address] Jan, Tear of left rotator cuff, unspecified tear extent M75.102 [place] [address] [place] [id number] [place] [address] Jan, Tear of left rotator cuff, unspecified tear extent M75.102 [place] [address] [place] [id number] [place] [address] Jan, Tear of left rotator cuff, unspecified tear extent M75.102 [facility] [address] [place] [id number] [place] [address] Dec, [facility] [address] [place] [id number] [place] [address] Dec, Tear of left rotator cuff, unspecified tear extent M75.102 [facility] [address] [address] Dec, Essential hypertension I10 ; Osteoarthritis M19.90 and Obesity E66.9 [facility] [address] [place] [id number] [place] [address] September, Essential hypertension I10 and Obesity E66.9 [facility] [address] [place] [id number] [place] [address] Jun, Essential hypertension I10 ; Obesity E66.9 and Osteoarthritis M19.90 [facility] [address] [place] [id number] [place] [address] Jun, [facility] [address] [place] [id number] [place] [address] May, Tear of left rotator cuff, unspecified tear extent M75.102 [facility] [address] [place] [id number] [place] [address] May, Muscle spasm M62.838 [facility] [address] [place] [id number] [place] [address] Apr, [facility] [address] [place] [id number] [place] [address] Apr, Essential hypertension I10 [address] [id number] [id number] Feb, Dental examination Z01.20 and Dental caries, unspecified K02.9 [facility] [address] [place] [id number] [place] [address] 28 Jan, 2015 Impacted cerumen of both ears 380.4 [facility] [address] [address] [id number] [id number] 17 Jan, 2015 Dental examination V72.2 [facility] [id number] [place] [address] 14 Jan, 2015 Impacted cerumen of both ears 380.4 [facility] [address] [id number] [place] [address] Oct, Essential hypertension, benign 401.1 [facility] [address] [id number] [place] [address] 14 Aug, 2014 [facility] [place] [facility] [address] [facility] [id number] [place] [address] Aug, [facility] [place] [facility] [address] [facility] [id number] [place] [address] Jul, [facility] [place] [facility] [address] [facility] [id number] [place] [address] Jul, [facility] [place] [facility] [address] [place] [id number] [place] [address] Jun, [facility] [address] [place] [address] Jun, [facility] [address] [place] [id number] [place] [address] Mar, [facility] [address] [place] [id number] [place] [address] Mar, [facility] [id number] [place] [address] Jul, [facility] [place] [facility] [address] [place] [address] Jul, [facility] [place] [facility] [address] [facility] [id number] [place] [address] Jun, [facility] [place] [facility] [address] [facility] [id number] [place] [address] Jun, [facility] [place] [facility] [address] [place] [id number] [place] [address] Jun, [facility] [place] [facility] [address] [place] [id number] [place] [address] Jun, [facility] [place] [facility] [address] [facility] [id number] [place] [address] Jun, [facility] [address] [id number] [place] [address] Jun, [facility] [place] [facility] [address] [id number] [place] [address] Feb, [facility] [place] [facility] [address] [id number] [place] [address] Feb, [facility] [place] [facility] [address] [id number] [place] [address] Feb, [facility] [place] [facility] [address] [id number] [place] [address] Feb, [facility] [place] [facility] [address] [id number] [place] [address] Feb, [facility] [place] [facility] [address] [id number] [place] [address] Feb, [facility] [place] [facility] [address] [id number] [place] [address] Feb, [facility] [place] [facility] [address] [id number] [place] [address] Feb, [facility] [place] [facility] [address] [id number] [place] [address] 05 Feb, 2013 [facility] [place] [facility] [address] [id number] [place] [address] Feb, [facility] [place] [facility] [address] [id number] [place] [address] 10 Jan, 2012 [facility] [place] [facility] [address] [id number] [place] [address] 07 Jan, 2012 [facility] [place] [facility] [address] [id number] [place] [address] 23 Aug, 2011 [facility] [place] [facility] [address] [id number] [place] [address] Aug, [facility] [address] [facility] [id number] [place] [address] Aug, [facility] [address] [facility] [id number] [address] Aug, [facility] [address] [facility] [id number] [address] September, IMMUNIZATIONS No Known Immunizations SOCIAL HISTORY Never Assessed REASON FOR VISIT Aches, chills, sinus congestiona nd runny nose started yesterday JStrasserRN PLAN OF CARE Activity Details Follow Up prn Reason: VITAL SIGNS Height 72 in 2017-05-17 Weight 283.4 lbs 2017-05-17 Temperature 97.3 degrees Fahrenheit 2017-05-17 Heart Rate 88 bpm 2017-05-17 Respiratory Rate 20 2017-05-17 BMI 38.43 kg/m2 2017-05-17 Blood pressure systolic 100 mmHg 2017-05-17 Blood pressure diastolic 70 mmHg 2017-05-17 MEDICATIONS Medication Instructions Dosage Frequency Start Date End Date Duration Status Lisinopril-Hydrochlorothiazide 20-25 MG Orally Once a day TAKE ONE TABLET BY MOUTH ONCE DAILY 24h 90 days Active Atorvastatin Calcium 10 mg Orally Once a day 1 tablet 24h Oct, 90 days Not-Taking RESULTS Name Result Date Reference Range INFLUENZA A & B (IN HOUSE) 2017-05-17 INFLUENZA A negative INFLUENZA B negative Control + Lot # [id number] Exp date 2019-08-06 PROCEDURES Procedure Date Ordered Result Body Site [facility] VISIT ESTABLISHED PATIENT May 17, 2017 INFLUENZA ASSAY W/OPTIC May 17, 2017 INSTRUCTIONS MEDICATIONS ADMINISTERED No Known Medications [...]
--- OUTSIDE RECORDS SUMMARY | 2018-11-15 01:37 | XMS REPORT ---
Author Author [facility] Address [address] [place] [address] Care Team Providers Care Supplemental Manager Name Role Phone [facility] Unavailable PROBLEMS Type Condition ICD9-CM Code EIY88-BP Code Onset Dates Condition Status SNOMED Code Problem Osteoarthritis M19.90 Active 097885795 Problem Pain of left calf M79.662 Active 5726260328953513 Problem Morbid (severe) obesity due to excess calories E66.01 Active 602000306 Problem Mixed hyperlipidemia E78.2 Active 608714979 Problem Medicare annual wellness visit, subsequent Z00.00 Active 150977069 Problem Essential hypertension I10 Active 75757291 Problem Body mass index (BMI) of 40.0-44.9 in adult Z68.41 Active 244207721 Problem Facial droop R29.810 Active 44395702 ALLERGIES No Information ENCOUNTERS Encounter Location Date Diagnosis [place] [id number] [address] Aug, [facility] [address] [address] Aug, Essential hypertension I10 ; Osteoarthritis M19.90 ; Body mass index (BMI) of 40.0-44.9 in adult Z68.41 ; Morbid (severe) obesity due to excess calories E66.01 ; Mixed hyperlipidemia E78.2 and Facial droop R29.810 [facility] [address] [place] [id number] [place] [address] Jun, Encounter for immunization Z23 [facility] [address] [address] Jun, [facility] [address] [address] 15 Jun, 2017 Medicare annual wellness visit, initial Z00.00 ; Essential hypertension I10 ; Osteoarthritis M19.90 ; Encounter for immunization Z23 and Body mass index (BMI) of 38.0-38.9 in adult Z68.38 [facility] [address] [id number] [place] [address] May, Pain of left calf M79.662 [facility] [id number] [place] [address] May, Pain of left calf M79.662 [facility] [id number] [place] [address] May, Acute nasopharyngitis J00 [facility] [address] [place] [id number] [place] [address] Mar, Pain of left calf M79.662 [facility] [address] [id number] [place] [address] Feb, Cramps of left lower extremity R25.2 [facility] [id number] [place] [address] Feb, Cramps of left lower extremity R25.2 [facility] [id number] [place] [address] Feb, [facility] [id number] [place] [address] Jan, Cramps of left lower extremity R25.2 [facility] [id number] [place] [address] Nov, [facility] [id number] [place] [address] Nov, [facility] [address] [id number] [place] [address] Nov, Pain of left calf M79.662 [facility] [address] [address] Oct, [facility] [id number] [place] [address] Oct, [facility] [address] [place] [id number] [place] [address] Oct, Essential hypertension I10 ; Cramps of left lower extremity R25.2 and Morbid (severe) obesity due to excess calories E66.01 [facility] [id number] [place] [address] Oct, Cramps of left lower extremity R25.2 ; Essential hypertension I10 and Morbid (severe) obesity due to excess calories E66.01 [place] [address] [place] [id number] [place] [address] Aug, [facility] [address] [place] [id number] [place] [address] Aug, Cramps of left lower extremity R25.2 [facility] [address] [place] [id number] [place] [address] Jul, Pain in left shoulder M25.512 [facility] [address] [place] [place] [id number] [place] [address] Jul, Tear of left rotator cuff, unspecified tear extent M75.102 [facility] [address] [place] [id number] [place] [address] Jun, Pain in left shoulder M25.512 [facility] [address] [place] [id number] [place] [address] Jun, Essential hypertension I10 ; Pain in left shoulder M25.512 and Morbid (severe) obesity due to excess calories E66.01 [facility] [id number] [place] [address] May, Pain in left shoulder M25.512 [facility] [address] [place] [place] [id number] [place] [address] May, Tear of left rotator cuff, unspecified tear extent M75.102 [facility] [address] [place] [id number] [place] [address] Apr, Medicare annual wellness visit, subsequent Z00.00 ; Body mass index (BMI) of 40.0-44.9 in adult Z68.41 ; Morbid (severe) obesity due to excess calories E66.01 ; Essential hypertension I10 ; Pain in left shoulder M25.512 and Other chronic pain G89.29 [place] [address] [place] [id number] [place] [address] 27 Apr, 2016 Osteoarthritis M19.90 [place] [address] [address] Apr, Tear of left rotator cuff, unspecified tear extent M75.102 [place] [address] [place] [id number] [place] [address] Apr, Tear of left rotator cuff, unspecified tear extent M75.102 [place] [address] [place] [id number] [place] [address] Mar, Tear of left rotator cuff, unspecified tear extent M75.102 [place] [address] [place] [id number] [place] [address] Mar, Tear of left rotator cuff, unspecified tear extent M75.102 [place] [address] [place] [id number] [place] [address] Mar, Tear of left rotator cuff, unspecified tear extent M75.102 [place] [address] [place] [id number] [place] [address] Mar, Tear of left rotator cuff, unspecified tear extent M75.102 [place] [address] [place] [id number] [place] [address] Mar, Essential hypertension I10 ; Obesity E66.9 and Bacterial conjunctivitis of both eyes H10.9 [place] [address] [place] [id number] [place] [address] Feb, Tear of left rotator cuff, unspecified tear extent M75.102 [facility] [address] [place] [id number] [place] [id number] Feb, Tear of left rotator cuff, unspecified tear extent M75.102 [facility] [address] [place] [id number] [place] [address] Feb, Tear of left rotator cuff, unspecified tear extent M75.102 [facility] [address] [place] [id number] [place] [id number] Feb, Tear of left rotator cuff, unspecified tear extent M75.102 [place] [address] [place] [id number] [place] [id number] Jan, Tear of left rotator cuff, unspecified tear extent M75.102 [place] [address] [place] [id number] [place] [address] Jan, Tear of left rotator cuff, unspecified tear extent M75.102 [place] [address] [place] [id number] [place] [address] Jan, Tear of left rotator cuff, unspecified tear extent M75.102 [facility] [address] [place] [id number] [place], [place] [address] Jan, Tear of left rotator cuff, unspecified tear extent M75.102 [place] [address] [place] [id number] [place] [address] Dec, [place] [address] [place] [id number] [place] [address] Dec, Tear of left rotator cuff, unspecified tear extent M75.102 [facility] [address] [place] [id number] [place] [address] Dec, Essential hypertension I10 ; Osteoarthritis M19.90 and Obesity E66.9 [facility] [address] [place] [id number] [place], [place] [address] September, Essential hypertension I10 and Obesity E66.9 [facility] [address] [place] [address] Jun, Essential hypertension I10 ; Obesity E66.9 and Osteoarthritis M19.90 [facility] [address] [place] [id number] [place] [address] Jun, [place] [address] [address] May, Tear of left rotator cuff, unspecified tear extent M75.102 [place] [address] [place] [id number] [place] [address] May, Muscle spasm M62.838 [place] [address] [place] [id number] [place] [address] Apr, [place] [address] [place] [id number] [place] [address] Apr, Essential hypertension I10 [address] [id number] [id number] Feb, Dental examination Z01.20 and Dental caries, unspecified K02.9 [place] [address] [address] Jan, Impacted cerumen of both ears 380.[address] [id number] [id number] 17 Jan, 2015 Dental examination V72.2 [place] [id number] [place] [address] 14 Jan, 2015 Impacted cerumen of both ears 380.4 [place] [address] [place] [id number] [place] [address] Oct, Essential hypertension, benign 401.1 [facility] [address] [address] Aug, [place] [address] [place] [id number] [place] [address] 13 Aug, 2014 [facility] [place] [facility] [address] [id number] [place] [address] Jul, [facility] [place] [facility] [address] [id number] [place] [address] Jul, 2014 [facility] [place] [facility] [address] [id number] [place] [address] Jun, 2014 [facility] [place] [facility] [address] [id number] [place] [address] Jun, [facility] [place] [facility] [address] [facility] [id number] [place] [address] Mar, [facility] [place] [facility] [address] [facility] [id number] [place] [address] Mar, [facility] [place] [facility] [address] [facility] [id number] [place] [address] Jul, [facility] [place] [facility] [address] [facility] [id number] [place] [address] Jul, [facility] [place] [facility] [address] [facility] [id number] [place] [address] Jun, [facility] [place] [facility] [address] [facility] [id number] [place] [address] Jun, [facility] [place] [facility] [address] [facility] [id number] [place] [address] Jun, [facility] [place] [facility] [address] [facility] [id number] [place] [address] Jun, [facility] [place] [facility] [address] [facility] [id number] [place] [address] Jun, [facility] [place] [facility] [address] [facility] [id number] [place] [address] Jun, [facility] [place] [facility] [address] [facility] [id number] [place] [address] Feb, [facility] [place] [facility] [address] [id number] [place] [address] Feb, [facility] [place] [facility] [address] [id number] [place] [address] Feb, [facility] [place] [facility] [address] [id number] [place] [address] Feb, [facility] [place] [facility] [address] [id number] [place] [address] Feb, [facility] [place] [facility] [address] [id number] [place] [address] Feb, [facility] [place] [facility] [address] [id number] [place] [address] 08 Feb, 2013 [facility] [place] [facility] [address] [id number] [place] [address] 07 Feb, 2013 [facility] [place] [facility] [address] [id number] [address] 05 Feb, 2013 [facility] [place] [facility] [address] [id number] [address] 04 Feb, 2013 [facility] [place] [facility] [address] [id number] [address] 10 Jan, 2012 [facility] [place] [facility] [address] [id number] [address] 07 Jan, 2012 [facility] [place] [facility] [address] [id number] [place] [address] 23 Aug, 2011 [facility] [place] [facility] [address] [id number] [place] [address] 16 Aug, 2011 [facility] [place] [facility] [address] [id number] [place] [address] 16 Aug, 2011 [facility] [place] [facility] [address] [id number] [address] 12 Aug, 2009 [facility] [place] [facility] [address] [facility] [id number] [place] [address] September, IMMUNIZATIONS No Known Immunizations SOCIAL HISTORY Never Assessed REASON FOR VISIT Wanted to talk to Anny Guerrero PLAN OF CARE VITAL SIGNS MEDICATIONS Unknown [...]
--- OUTSIDE RECORDS SUMMARY | 2018-11-15 01:37 | XMS REPORT ---
Author Author [facility] Address [address] [place] [address] Care Team Providers Care Automation Tester Name Role Phone [facility] Unavailable PROBLEMS Type Condition ICD9-CM Code WLC47-HB Code Onset Dates Condition Status SNOMED Code Problem Osteoarthritis M19.90 Active 336387064 Problem Pain of left calf M79.662 Active 1260500974902111 Problem Morbid (severe) obesity due to excess calories E66.01 Active 679723182 Problem Mixed hyperlipidemia E78.2 Active 603402451 Problem Medicare annual wellness visit, subsequent Z00.00 Active 936857746 Problem Essential hypertension I10 Active 31680096 Problem Body mass index (BMI) of 40.0-44.9 in adult Z68.41 Active 607431925 Problem Facial droop R29.810 Active 14712254 ALLERGIES No Information ENCOUNTERS Encounter Location Date Diagnosis [place] [id number] [address] Aug, [facility] [address] [address] Aug, Essential hypertension I10 ; Osteoarthritis M19.90 ; Body mass index (BMI) of 40.0-44.9 in adult Z68.41 ; Morbid (severe) obesity due to excess calories E66.01 ; Mixed hyperlipidemia E78.2 and Facial droop R29.810 [facility] [address] [place] [id number] [place] [address] Jun, Encounter for immunization Z23 [facility] [address] [address] Jun, [facility] [address] [address] Jun, Medicare annual wellness visit, initial Z00.00 ; Essential hypertension I10 ; Osteoarthritis M19.90 ; Encounter for immunization Z23 and Body mass index (BMI) of 38.0-38.9 in adult Z68.38 [facility] [address] [place] [id number] [place] [address] May, Pain of left calf M79.662 [facility] [id number] [place] [address] May, Pain of left calf M79.662 [facility] [id number] [place] [address] May, Acute nasopharyngitis J00 [facility] [address] [place] [id number] [place] [address] Mar, Pain of left calf M79.662 [facility] [id number] [place] [address] Feb, Cramps of left lower extremity R25.2 [facility] [id number] [place] [address] Feb, Cramps of left lower extremity R25.2 [facility] [id number] [place] [address] Feb, [facility] [id number] [place] [address] Jan, Cramps of left lower extremity R25.2 [facility] [id number] [place] [address] Nov, [facility] [id number] [place] [address] Nov, [facility] [id number] [place] [address] Nov, Pain of left calf M79.662 [facility] [address] [address] Oct, [facility] [id number] [place] [address] Oct, [facility] [address] [place] [id number] [place] [address] Oct, Essential hypertension I10 ; Cramps of left lower extremity R25.2 and Morbid (severe) obesity due to excess calories E66.01 [facility] [address] [place] [id number] [place] [address] Oct, Cramps of left lower extremity R25.2 ; Essential hypertension I10 and Morbid (severe) obesity due to excess calories E66.01 [place] [address] [id number] [place] [address] Aug, [facility] [address] [place] [id number] [place] [address] Aug, Cramps of left lower extremity R25.2 [facility] [address] [place] [id number] [place] [address] Jul, Pain in left shoulder M25.512 [facility] [address] [place] [id number] [place] [address] Jul, Tear of left rotator cuff, unspecified tear extent M75.102 [facility] [address] [place] [id number] [place] [address] Jun, Pain in left shoulder M25.512 [facility] [address] [id number] [place] [address] Jun, Essential hypertension I10 ; Pain in left shoulder M25.512 and Morbid (severe) obesity due to excess calories E66.01 [facility] [id number] [place] [address] May, Pain in left shoulder M25.512 [facility] [address] [id number] [place] [address] May, Tear of left rotator cuff, unspecified tear extent M75.102 [facility] [address] [id number] [place] [address] Apr, Medicare annual wellness visit, subsequent Z00.00 ; Body mass index (BMI) of 40.0-44.9 in adult Z68.41 ; Morbid (severe) obesity due to excess calories E66.01 ; Essential hypertension I10 ; Pain in left shoulder M25.512 and Other chronic pain G89.29 [place] [address] [id number] [place] [address] 27 Apr, 2016 Osteoarthritis M19.90 [place] [address] [address] Apr, Tear of left rotator cuff, unspecified tear extent M75.102 [place] [address] [place] [id number] [place] [address] Apr, Tear of left rotator cuff, unspecified tear extent M75.102 [place] [address] [place] [id number] [place] [address] Mar, Tear of left rotator cuff, unspecified tear extent M75.102 [place] [address] [place] [id number] [place] [address] Mar, Tear of left rotator cuff, unspecified tear extent M75.102 [place] [address] [place] [id number] [place] [address] Mar, Tear of left rotator cuff, unspecified tear extent M75.102 [place] [address] [id number] [place] [address] Mar, Tear of left rotator cuff, unspecified tear extent M75.102 [place] [address] [id number] [place] [address] Mar, Essential hypertension I10 ; Obesity E66.9 and Bacterial conjunctivitis of both eyes H10.9 [place] [address] [place] [id number] [place] [address] Feb, Tear of left rotator cuff, unspecified tear extent M75.102 [facility] [address] [id number] [place] [id number] Feb, Tear of left rotator cuff, unspecified tear extent M75.102 [facility] [address] [id number] [place] [address] Feb, Tear of left rotator cuff, unspecified tear extent M75.102 [facility] [address] [place] [id number] [place] [id number] Feb, Tear of left rotator cuff, unspecified tear extent M75.102 [place] [address] [place] [id number] [place] [id number] Jan, Tear of left rotator cuff, unspecified tear extent M75.102 [place] [address] [place] [id number] [place] [place] [address] Jan, Tear of left rotator cuff, unspecified tear extent M75.102 [place] [address] [place] [id number] [place] [address] Jan, Tear of left rotator cuff, unspecified tear extent M75.102 [facility] [address] [place] [id number] [place] [address] Jan, Tear of left rotator cuff, unspecified tear extent M75.102 [place] [address] [place] [id number] [place] [address] Dec, [place] [address] [place] [id number] [place] [address] Dec, Tear of left rotator cuff, unspecified tear extent M75.102 [facility] [address] [place] [id number] [place] [address] Dec, Essential hypertension I10 ; Osteoarthritis M19.90 and Obesity E66.9 [facility] [address] [place] [id number] [place] [id number] September, Essential hypertension I10 and Obesity E66.9 [facility] [address] [place] [address] Jun, Essential hypertension I10 ; Obesity E66.9 and Osteoarthritis M19.90 [facility] [address] [place] [id number] [place] [address] Jun, [place] [address] [address] May, Tear of left rotator cuff, unspecified tear extent M75.102 [place] [address] [place] [id number] [place] [address] May, Muscle spasm M62.838 [place] [address] [place] [id number] [place] [address] Apr, [place] [address] [place] [id number] [place] [address] Apr, Essential hypertension I10 [address] [id number] [id number] Feb, Dental examination Z01.20 and Dental caries, unspecified K02.9 [place] [address] [address] Jan, Impacted cerumen of both ears 380.[address] [id number] [id number] 17 Jan, 2015 Dental examination V72.2 [place] [id number] [place] [address] 14 Jan, 2015 Impacted cerumen of both ears 380.4 [place] [address] [place] [id number] [place] [address] Oct, Essential hypertension, benign 401.1 [facility] [address] [address] Aug, [place] [address] [place] [address] [place] [address] 13 Aug, 2014 [facility] [place] [facility] [address] [id number] [place] [address] Jul, [facility] [place] [facility] [address] [id number] [place] [address] Jul, 2014 [facility] [place] [facility] [address] [id number] [place] [address] Jun, 2014 [facility] [place] [facility] [address] [id number] [place] [address] Jun, [facility] [place] [facility] [address] [facility] [id number] [place] [address] Mar, [facility] [place] [facility] [address] [facility] [id number] [place] [address] Mar, [facility] [place] [facility] [address] [facility] [id number] [place] [address] Jul, [facility] [place] [facility] [address] [facility] [id number] [place] [address] Jul, [facility] [place] [facility] [address] [facility] [id number] [place] [address] Jun, [facility] [place] [facility] [address] [facility] [id number] [place] [address] Jun, [facility] [place] [facility] [address] [facility] [id number] [place] [address] Jun, [facility] [place] [facility] [address] [facility] [id number] [place] [address] Jun, [facility] [place] [facility] [address] [facility] [id number] [place] [address] Jun, [facility] [place] [facility] [address] [facility] [id number] [place] [address] Jun, [facility] [place] [facility] [address] [facility] [id number] [place] [address] Feb, [facility] [place] [facility] [address] [id number] [place] [address] Feb, [facility] [place] [facility] [address] [id number] [place] [address] Feb, [facility] [place] [facility] [address] [id number] [place] [address] Feb, [facility] [place] [facility] [address] [id number] [place] [address] Feb, [facility] [place] [facility] [address] [id number] [place] [address] Feb, [facility] [place] [facility] [address] [id number] [place] [address] 08 Feb, 2013 [facility] [place] [facility] [address] [id number] [place] [address] 07 Feb, 2013 [facility] [place] [facility] [address] [id number] [address] 05 Feb, 2013 [facility] [place] [facility] [address] [id number] [address] 04 Feb, 2013 [facility] [place] [facility] [address] [id number] [address] 10 Jan, 2012 [facility] [place] [facility] [address] [id number] [address] 07 Jan, 2012 [facility] [place] [facility] [address] [id number] [address] 23 Aug, 2011 [facility] [place] [facility] [address] [id number] [place] [address] 16 Aug, 2011 [facility] [place] [facility] [address] [id number] [address] 16 Aug, 2011 [facility] [place] [facility] [address] [id number] [address] 12 Aug, 2009 [facility] [place] [facility] [address] [facility] [id number] [place] [address] September, IMMUNIZATIONS No Known Immunizations SOCIAL HISTORY [...]
--- OUTSIDE RECORDS SUMMARY | 2018-11-15 01:38 | XMS REPORT ---
Author Author [facility] Address [address] [place] [address] Care Team Providers Care Extrusion Line Operator Name Role Phone ANTOINEUMM Vega Unavailable PROBLEMS Type Condition ICD9-CM Code LTK22-LC Code Onset Dates Condition Status SNOMED Code Problem Body mass index (BMI) of 38.0-38.9 in adult Z68.38 Active 159754412 Problem Medicare annual wellness visit, subsequent Z00.00 Active 246888631 Problem Osteoarthritis M19.90 Active 973026724 Problem Pain of left calf M79.662 Active 3885627283327094 Problem Pain in left shoulder M25.512 Active 89053726 Problem Essential hypertension I10 Active 82696937 ALLERGIES No Known Allergies ENCOUNTERS Encounter Location Date Diagnosis [place] [id number] [place] [address] 09 Aug, 2017 [place] [address] [address] 02 Aug, 2017 [place] [id number] [place] [address] Jun, Encounter for immunization Z23 [place] [id number] [place] [address] Jun, [place] [id number] [place] [address] 15 Jun, 2017 Medicare annual wellness visit, initial Z00.00 ; Essential hypertension I10 ; Osteoarthritis M19.90 ; Encounter for immunization Z23 and Body mass index (BMI) of 38.0-38.9 in adult Z68.38 [facility] [id number] [place] [address] 24 May, 2017 Pain of left calf M79.662 [place] [address] [address] May, Pain of left calf M79.[address] [facility] [address] [address] May, Acute nasopharyngitis J00 [facility] [id number] [address] Mar, Pain of left calf M79.662 [facility] [id number] [address] Feb, Cramps of left lower extremity R25.2 [facility] [id number] [place] [address] Feb, Cramps of left lower extremity R25.2 [facility] [id number] [place] [address] Feb, [facility] [id number] [place] [address] Jan, Cramps of left lower extremity R25.2 [facility] [id number] [place] [phone] Nov, [facility] [id number] [address] Nov, [facility] [id number] [place] [address] Nov, Pain of left calf M79.662 [facility] [address] [address] Oct, [facility] [id number] [place] [address] Oct, [facility] [address] [address] Oct, Essential hypertension I10 ; Cramps of left lower extremity R25.2 and Morbid (severe) obesity due to excess calories E66.01 [place] [address] [address] 08 Oct, 2016 Cramps of left lower extremity R25.2 ; Essential hypertension I10 and Morbid (severe) obesity due to excess calories E66.01 [place] [address] [address] Aug, [place] [id number] [place] [address] Aug, Cramps of left lower extremity R25.2 [place] [id number] [place] [address] Jul, Pain in left shoulder M25.512 [place] [id number] [place] [address] Jul, Tear of left rotator cuff, unspecified tear extent M75.102 [place] [id number] [place] [address] 15 Jun, 2016 Pain in left shoulder M25.512 [place] [id number] [place] [address] 09 Jun, 2016 Essential hypertension I10 ; Pain in left shoulder M25.512 and Morbid (severe) obesity due to excess calories E66.01 [place] [address] [place] [address] May, Pain in left shoulder M25.512 [place] [address] [place] [address] May, Tear of left rotator cuff, unspecified tear extent M75.102 [place] [address] [place] [address] Apr, Medicare annual wellness visit, subsequent Z00.00 ; Body mass index (BMI) of 40.0-44.9 in adult Z68.41 ; Morbid (severe) obesity due to excess calories E66.01 ; Essential hypertension I10 ; Pain in left shoulder M25.512 and Other chronic pain G89.29 [place] [id number] [place] [address] Apr, Osteoarthritis M19.90 [place] [id number] [place] [address] Apr, Tear of left rotator cuff, unspecified tear extent M75.102 [place] [address] [address] Apr, Tear of left rotator cuff, unspecified tear extent M75.102 [place] [address] Mar, Tear of left rotator cuff, unspecified tear extent M75.102 [place] [id number] [place] [address] Mar, Tear of left rotator cuff, unspecified tear extent M75.102 [place] [id number] [place] [address] Mar, Tear of left rotator cuff, unspecified tear extent M75.102 [place] [id number] [place] [address] Mar, Tear of left rotator cuff, unspecified tear extent M75.102 [place] [id number] [place] [address] Mar, Essential hypertension I10 ; Obesity E66.9 and Bacterial conjunctivitis of both eyes H10.9 [place] [address] [place] [address] Feb, Tear of left rotator cuff, unspecified tear extent M75.102 [place] [id number] [place] [address] Feb, Tear of left rotator cuff, unspecified tear extent M75.102 [place] [address] [address] Feb, Tear of left rotator cuff, unspecified tear extent M75.102 [facility] [id number] [place] [address] Feb, Tear of left rotator cuff, unspecified tear extent M75.102 [facility] [id number] [place] [address] Jan, Tear of left rotator cuff, unspecified tear extent M75.102 [facility] [id number] [place] [address] Jan, Tear of left rotator cuff, unspecified tear extent M75.102 [place] [address] [place] [address] Jan, Tear of left rotator cuff, unspecified tear extent M75.102 [place] [address] [place] [address] Jan, Tear of left rotator cuff, unspecified tear extent M75.102 [place] [address] [place] [address] Dec, [place] [address] [address] Dec, Tear of left rotator cuff, unspecified tear extent M75.102 [place] [address] [place] [address] Dec, Essential hypertension I10 ; Osteoarthritis M19.90 and Obesity E66.9 [place] [id number] [place] [address] September, Essential hypertension I10 and Obesity E66.9 [facility] [address] [place] [address] [id number] Jun, Essential hypertension I10 ; Obesity E66.9 and Osteoarthritis M19.90 [facility] [id number] [place] [address] Jun, [facility] [address] [address] May, Tear of left rotator cuff, unspecified tear extent M75.102 [facility] [address] [address] May, Muscle spasm M62.838 [facility] [id number] [place] [address] Apr, [facility] [id number] [place] [address] Apr, Essential hypertension I10 [facility] [address] [place] [id number] [place] [phone] Feb, Dental examination Z01.20 and Dental caries, unspecified K02.9 [facility] [id number] [place] [address] Jan, Impacted cerumen of both ears 380.4 [facility] [address] [place] [phone] Jan, 2015 Dental examination V72.2 [facility] [id number] [place] [address] Jan, Impacted cerumen of both ears 380.4 [facility] [address] [place] [address] Oct, Essential hypertension, benign 401.1 [facility] [id number] [place] [address] Aug, [facility] [id number] [place] [address] Aug, [facility] [address] [place] [address] Jul, [facility] [address] [address] Jul, [facility] [id number] [address] Jun, [facility] [place] [facility] [address] [id number] [place] [address] Jun, [facility] [place] [facility] [address] [id number] [place] [address] Mar, [facility] [place] [facility] [address] [id number] [place] [address] Mar, [facility] [place] [facility] [address] [id number] [place] [address] Jul, [facility] [place] [facility] [address] [id number] [place] [address] Jul, [facility] [place] [facility] [address] [facility] [id number] [place] [address] Jun, [facility] [place] [facility] [address] [id number] [place] [address] Jun, [facility] [place] [facility] [address] [id number] [place] [address] Jun, [facility] [place] [facility] [address] [facility] [id number] [place] [address] Jun, [facility] [place] [facility] [address] [facility] [id number] [place] [address] Jun, [facility] [place] [facility] [address] [id number] [place] [address] Jun, [facility] [place] [facility] [address] [id number] [place] [address] Feb, [facility] [place] [facility] [address] [id number] [place] [address] Feb, [facility] [place] [facility] [address] [id number] [place] [address] Feb, [facility] [place] [facility] [address] [facility] [id number] [address] Feb, [facility] [address] [address] Feb, [facility] [address] [address] Feb, [facility] [address] [address] Feb, [facility] [id number] [address] Feb, [facility] [id number] [address] Feb, [facility] [id number] [address] Feb, [facility] [address] [address] Jan, [facility] [address] [address] Jan, [facility] [address] [address] Aug, [facility] [address] [address] Aug, [facility] [id number] [address] Aug, [facility] [id number] [address] Aug, [facility] [id number] [address] September, IMMUNIZATIONS No Known Immunizations SOCIAL HISTORY Never Assessed REASON FOR VISIT left leg pain getting worse--tcuppettRN, -Ongoing left outer calf pain that is w orsening PLAN OF CARE Activity Details Follow Up prn Reason: VITAL SIGNS Height 72 in 2016-11-08 Weight 287.2 lbs 2016-11-08 Temperature 97.8 degrees Fahrenheit 2016-11-08 Heart Rate 84 bpm 2016-11-08 Respiratory Rate 20 2016-11-08 BMI 38.95 kg/m2 2016-11-08 Blood pressure systolic 122 mmHg 2016-11-08 Blood pressure diastolic 78 mmHg 2016-11-08 MEDICATIONS Medication Instructions Dosage Frequency Start Date End Date Duration Status Lisinopril-Hydrochlorothiazide 20-25 MG Orally Once a day TAKE ONE TABLET BY MOUTH ONCE DAILY 24h 90 days Active RESULTS Name Result Date Reference Range Ultrasound : Lower Extremity 2016-11-23 PROCEDURES Procedure Date Ordered Result Body Site [facility] VISIT ESTABLISHED PATIENT November 08, 2016 INSTRUCTIONS MEDICATIONS ADMINISTERED No Known Medications MEDICAL (GENERAL) HISTORY Type Description Date Medical History obesity Medical History seasonal allergies Medical History benign essential hypertension Surgical History neuroplasty w/ transposition of median nerve at carpal tunnel 2005---right wrist 2005 Surgical History cataract removal Hospitalization History pulled muscle, thought it was appendix @ age 17
--- OUTSIDE RECORDS SUMMARY | 2018-11-15 01:39 | XMS REPORT | Continuity of Care Document ---
Author Organization Unknown Address Unknown Allergies Active Description Code Type Severity Reaction Onset Reported/Identified Relationship to Patient Clinical Status Yes No Known Drug Allergies [id number] Drug Allergy Unknown N/A 07/27/2017 Medications There is no data. Problems Date Dx Coded Attending Type Code Diagnosis Diagnosed By 07/30/2008 BUSHRA ZELAYA DO 380.4 IMPACTED CERUMEN 07/30/2008 BUSHRA ZELAYA DO 461.0 ACUTE MAXILLARY SINUSITIS 07/30/2008 SHABNAM LEE MD 380.4 IMPACTED CERUMEN 07/30/2008 SHABNAM LEE MD 461.0 ACUTE MAXILLARY SINUSITIS 07/30/2008 SHABNAM LEE MD 380.4 IMPACTED CERUMEN 07/30/2008 SHABNAM LEE MD 461.0 ACUTE MAXILLARY SINUSITIS 07/30/2008 BUSHRA ZELAYA DO 380.4 IMPACTED CERUMEN 07/30/2008 BUSHRA ZELAYA DO 461.0 ACUTE MAXILLARY SINUSITIS 08/12/2008 BUSHRA ZELAYA DO 477.9 RHINITIS 08/12/2008 SHABNAM LEE MD 477.9 RHINITIS 08/12/2008 SHABNAM LEE MD 477.9 RHINITIS 08/12/2008 BUSHRA ZELAYA DO 477.9 RHINITIS 09/23/2008 BUSRHA ZELAYA DO V70.4 EXAMINATION FOR MEDICOLEGAL REASONS 09/23/2008 SHABNAM LEE MD V70.4 EXAMINATION FOR MEDICOLEGAL REASONS 09/23/2008 SHABNAM LEE MD V70.4 EXAMINATION FOR MEDICOLEGAL REASONS 09/23/2008 BUSHRA ZELAYA DO V70.4 EXAMINATION FOR MEDICOLEGAL REASONS 11/12/2009 BUSHRA ZELAYA DO V70.3 SPORTS/SCHOOL EXAM 11/12/2009 SHABNAM LEE MD V70.3 SPORTS/SCHOOL EXAM 11/12/2009 SHABNAM LEE MD V70.3 SPORTS/SCHOOL EXAM 11/12/2009 BUSHRA ZELAYA DO V70.3 SPORTS/SCHOOL EXAM 01/17/2012 BUSHRA ZELAYA DO 715.31 OSTEOARTHROSIS LOCALIZED NOT SPECIFIED WHETHER PRIMARY OR SECONDARY INVOLVING SHOULDER REGION 01/17/2012 BUSHRA ZELAYA DO 727.03 TRIGGER FINGER (ACQUIRED) 01/17/2012 SHABNAM LEE MD 715.31 OSTEOARTHROSIS LOCALIZED NOT SPECIFIED WHETHER PRIMARY OR SECONDARY INVOLVING SHOULDER REGION 01/17/2012 SHABNAM LEE MD 727.03 TRIGGER FINGER (ACQUIRED) 01/17/2012 SHABNAM LEE MD 715.31 OSTEOARTHROSIS LOCALIZED NOT SPECIFIED WHETHER PRIMARY OR SECONDARY INVOLVING SHOULDER REGION 01/17/2012 SHABNAM LEE MD 727.03 TRIGGER FINGER (ACQUIRED) 01/17/2012 BUSHRA ZELAYA DO 715.31 OSTEOARTHROSIS LOCALIZED NOT SPECIFIED WHETHER PRIMARY OR SECONDARY INVOLVING SHOULDER REGION 01/17/2012 BUSHRA ZELAYA DO 727.03 TRIGGER FINGER (ACQUIRED) 02/09/2013 BUSHRA ZELAYA DO 401.1 HYPERTENSION, BENIGN ESSENTIAL 02/09/2013 SHABNAM LEE MD 401.1 ESSENTIAL HYPERTENSION BENIGN 02/09/2013 SHABNAM LEE MD 401.1 ESSENTIAL HYPERTENSION BENIGN 02/09/2013 BUSHRA ZELAYA DO 401.1 ESSENTIAL HYPERTENSION BENIGN 06/27/2013 SHABNAM LEE MD 278.00 OBESITY 06/27/2013 SHABNAM LEE MD 719.46 joint pain in the left knee 06/27/2013 SHABNAM LEE MD 278.00 OBESITY 06/27/2013 SHABNAM LEE MD 719.46 joint pain in the left knee 06/27/2013 BUSHRA ZELAYA DO 278.00 OBESITY 06/27/2013 BUSHRA ZELAYA DO 719.46 joint pain in the left knee 08/11/2013 ELA FREITAS, SETH Nguyen Ot 682.0 CELLULITIS OF FACE 08/11/2013 ELA FREITAS, SETH Nguyen Ot 784.92 JAW PAIN 03/19/2014 BUSHRA EZLAYA DO V15.81 PERSONAL HISTORY OF NONCOMPLIANCE WITH MEDICAL TREATMENT PRESENTING HAZARDS TO HEALTH 06/13/2015 Ot M19.012 PRIMARY OSTEOARTHRITIS, LEFT SHOULDER 06/13/2015 Ot M75.52 BURSITIS OF LEFT SHOULDER 11/19/2016 CADEN FREITAS, EDNA Hansen Ot M75.102 UNSP ROTATR-CUFF TEAR/RUPTR OF LEFT SHOU 12/15/2016 UMM ANTOINE PANEL GLUER Ot M79.622 PAIN IN LEFT UPPER ARM 03/04/2017 UMM ANTOINE PANEL GLUER Ot R25.2 CRAMP AND SPASM 03/05/2017 UMM ANTOINE PANEL GLUER Ot R25.2 CRAMP AND SPASM 07/27/2017 ASHLYN LYNCH DO Ot Z01.818 ENCOUNTER FOR OTHER PREPROCEDURAL EXAMIN 07/27/2017 ASHLYN LYNCH DO Ot Z12.11 ENCOUNTER FOR SCREENING FOR MALIGNANT NE 08/03/2017 CADEN FREITAS, EDNA Hansen Ot M75.102 UNSP ROTATR-CUFF TEAR/RUPTR OF LEFT SHOU 08/03/2017 UMM ANTOINE PANEL GLUER Ot M79.622 PAIN IN LEFT UPPER ARM 08/03/2017 ASHLYN LYNCH DO Ot D12.4 BENIGN NEOPLASM OF DESCENDING COLON 08/03/2017 ASHLYN LYNCH DO Ot I10 ESSENTIAL (PRIMARY) HYPERTENSION 08/03/2017 ASHLYN LYNCH DO Ot K62.1 RECTAL POLYP 08/03/2017 ASHLYN LYNCH DO Ot K63.5 POLYP OF COLON 08/03/2017 ASHLYN LYNCH DO Ot K64.8 OTHER HEMORRHOIDS 08/03/2017 ASHLYN LYNCH DO Ot R15.9 FULL INCONTINENCE OF FECES 08/03/2017 ASHLYN LYNCH DO Ot Z12.11 ENCOUNTER FOR SCREENING FOR MALIGNANT NE 08/03/2017 ASHLYN LYNCH DO Ot Z79.899 OTHER SHELTER (CURRENT) DRUG THERAPY 08/03/2017 ASHLYN LYNCH DO Ot Z86.73 PRSNL HX OF TIA (TIA), AND CEREB INFRC W 08/04/2017 ASLHYN LYNCH DO Ot Z01.818 ENCOUNTER FOR OTHER PREPROCEDURAL EXAMIN 08/04/2017 ASHLYN LYNCH DO Ot Z12.11 ENCOUNTER FOR SCREENING FOR MALIGNANT NE 08/06/2017 ASHLYN LYNCH DO Ot Z01.818 ENCOUNTER FOR OTHER PREPROCEDURAL EXAMIN 08/06/2017 MUMTAZ LYNCH DOIC B Ot Z12.11 ENCOUNTER FOR SCREENING FOR MALIGNANT NE 08/08/2017 MUMTAZ LYNCH DOIC B Ot D12.4 BENIGN NEOPLASM OF DESCENDING COLON 08/08/2017 SYED CALDWELL ASHLYN B Ot I10 ESSENTIAL (PRIMARY) HYPERTENSION 08/08/2017 SYED CALDWELL ASHLYN B Ot K62.1 RECTAL POLYP 08/08/2017 SYED CALDWELL ASHLYN B Ot K64.8 OTHER HEMORRHOIDS 08/08/2017 MUMTAZ LYNCH DOIC B Ot R15.9 FULL INCONTINENCE OF FECES 08/08/2017 MUMTAZ LYNCH DOIC B Ot Z12.11 ENCOUNTER FOR SCREENING FOR MALIGNANT NE 08/08/2017 MUMTAZ LYNCH DOIC B Ot Z79.899 OTHER MARKETING SERVICES SPECIALIST (CURRENT) DRUG THERAPY 08/08/2017 SYED CALDWELL ASHLYN B Ot Z86.73 PRSNL HX OF TIA (TIA), AND CEREB INFRC W 08/09/2017 UMM ANTOINE APRN Ot R29.810 FACIAL WEAKNESS 08/10/2017 MUMTAZ LYNCH DOIC B Ot D12.4 BENIGN NEOPLASM OF DESCENDING COLON 08/10/2017 SYED CALDWELL ASHLYN B Ot I10 ESSENTIAL (PRIMARY) HYPERTENSION 08/10/2017 MUMTAZ LYNCH DOIC B Ot K62.1 RECTAL POLYP 08/10/2017 MUMTAZ LYNCH DOIC B Ot K64.8 OTHER HEMORRHOIDS 08/10/2017 SYED CALDWELL ASHLYN B Ot R15.9 FULL INCONTINENCE OF FECES 08/10/2017 MUMTAZ LYNCH DOIC B Ot Z12.11 ENCOUNTER FOR SCREENING FOR MALIGNANT NE 08/10/2017 MUMTAZ LYNCH DOIC B Ot Z79.899 OTHER MARKETING SERVICES SPECIALIST (CURRENT) DRUG THERAPY 08/10/2017 MUMTAZ LYNCH DOIC B Ot Z86.73 PRSNL HX OF TIA (TIA), AND CEREB INFRC W 08/11/2017 UMM ANTOINE APRN Ot R29.810 FACIAL WEAKNESS 08/12/2017 UMM ANTOINE APRN Ot R29.810 FACIAL WEAKNESS 08/13/2017 CADEN FREITAS, EDNA Hansen Ot M75.102 UNSP ROTATR-CUFF TEAR/RUPTR OF LEFT SHOU 08/13/2017 UMM ANTOINE APRN Ot M79.622 PAIN IN LEFT UPPER ARM 08/13/2017 UMM ANTOINE APRN Ot R29.810 FACIAL WEAKNESS 08/15/2017 ASHLYN LYNCH DO Ot D12.4 BENIGN NEOPLASM OF DESCENDING COLON 08/15/2017 ASHLYN LYNCH DO Ot I10 ESSENTIAL (PRIMARY) HYPERTENSION 08/15/2017 RYANEARLE ASHLYN CALDWELL Ot K62.1 RECTAL POLYP 08/15/2017 ASHLYN LYNCH DO Ot K64.8 OTHER HEMORRHOIDS 08/15/2017 ASHLYN LYNCH DO Ot R15.9 FULL INCONTINENCE OF FECES 08/15/2017 RYANEARLE ASHLYN CALDWELL Ot Z12.11 ENCOUNTER FOR SCREENING FOR MALIGNANT NE 08/15/2017 ASHLYN LYNCH DO Ot Z79.899 OTHER MARKETING SERVICES SPECIALIST (CURRENT) DRUG THERAPY 08/15/2017 ASHLYN LYNCH DO Ot Z86.73 PRSNL HX OF TIA (TIA), AND CEREB INFRC W 08/15/2017 UMM ANTOINE APRN Ot R29.810 FACIAL WEAKNESS 08/15/2017 UMM ANTOINE APRN Ot R53.1 WEAKNESS 09/02/2017 UMM ANTOINE APRN Ot R29.810 FACIAL WEAKNESS 09/02/2017 UMM ANTOINE APRN Ot R53.1 WEAKNESS 11/28/2017 UMM ANTOINE APRN Ot R29.810 FACIAL WEAKNESS 11/28/2017 UMM ANTOINE APRN Ot R53.1 WEAKNESS 10/25/2018 CADEN FREITAS, EDNA Hansen Ot M75.102 UNSP ROTATR-CUFF TEAR/RUPTR OF LEFT SHOU 10/25/2018 UMM ANTOINE APRN Ot M79.622 PAIN IN LEFT UPPER ARM 10/25/2018 UMM ANTOINE APRN Ot R29.810 FACIAL WEAKNESS 10/25/2018 UMM ANTOINE APRN Ot R53.1 WEAKNESS 10/25/2018 OUSMANE FREITAS, AVIS Romeo Ot G20 PARKINSON'S DISEASE Procedures Code Description [place] [address] ROUTINE VENIPUNCTURE 02/09/2013 30169 URIC ACID 02/09/2013 57941 RA FACTOR 02/10/2013 ANAANA EVERETT ANALYZER (SCREEN) 02/10/2013 [id number] TITER EVERETT (RESULT ONLY) 02/12/2013 [id number] INT DNA (RESULT ONLY) 02/12/2013 [id number] INT HARI (RESULT ONLY) 02/12/2013 26903 DNA ANTIBODY (DOUBLE STRAND) 02/13/2013 88165 HARI SCR 02/13/2013 RHEUMATOL Xavier Couch 03/01/2013 04274 ROUTINE VENIPUNCTURE 06/27/2013 89976 XRAY KNEE LEFT 3 VIEWS 06/27/2013 56702 A1C (IN-HOUSE) 06/27/2013 80667 CMP 06/27/2013 18648 LIPID PANEL 06/27/2013 [id number] GFR CALC (RESULT ONLY) 06/27/2013 58177 CBC 06/27/2013 29376 PT/INR 06/27/2013 27979 CRP 06/27/2013 85046 TSH 06/27/2013 71223 CCP ANTIBODY 06/28/2013 Results There is no data. Encounters ACCT No. Visit Date/Time Discharge Status Pt. Type Provider Facility Loc./Unit Complaint [id number] 03/19/2014 15:34:00 03/19/2014 23:59:59 CLS Outpatient BUSHRA ZELAYA DO [id number] 07/05/2013 07:59:00 07/05/2013 23:59:59 CLS Outpatient SHABNAM LEE MD [id number] 06/27/2013 08:59:00 06/27/2013 23:59:59 CLS Outpatient SHABNAM LEE MD [id number] 02/09/2013 09:28:00 02/09/2013 23:59:59 [place] [id number] 11/02/2018 14:30:00 11/02/2018 23:59:59 CLS Outpatient LAKESHA REDDY MD [facility] [id number] 10/25/2018 13:33:00 10/25/2018 23:59:59 CLS Outpatient AVIS ROMEO MD [facility] RAD PARKINSONS [id number] 08/12/2017 14:12:00 08/12/2017 23:59:59 CLS Outpatient UMM ANTOINE APRN [facility] RAD R29.810 FACIAL DROOP [id number] 08/08/2017 15:29:00 08/08/2017 23:59:59 CLS Preadmit UMM ANTOINE APRN [facility] RAD R29.810 FACIAL DROOP [id number] 08/03/2017 11:49:00 08/03/2017 14:35:00 DIS Outpatient ASHLYN LYNCH DO [facility] ENDO SCREENING [id number] 07/27/2017 05:35:00 07/27/2017 14:00:00 DIS Outpatient ASHLYN LYNCH DO [facility] PREOP COLONOSCOPY [id number] 03/11/2017 13:00:00 03/11/2017 13:00:00 CAN Preadmit UMM ANTOINE PANEL GLUER [facility] RAD CRAMPS OF LT L/E R25.2 [id number] 03/02/2017 11:46:00 03/02/2017 23:59:59 CLS Preadmit UMM ANTOINE PANEL GLUER [facility] RAD CRAMPS OF LT L/E R25.2 [id number] 11/23/2016 13:17:00 11/23/2016 23:59:59 CLS Outpatient UMM ANTOINE PANEL GLUER [facility] RAD M79.622 PAIN OF LEFT CALF [id number] 06/17/2015 12:16:00 06/17/2015 23:59:59 CLS Outpatient ENDA NEGRETE MD [facility] RAD LEFT ROTATOR CUFF TEAR [id number] 08/11/2013 16:38:00 08/11/2013 17:04:00 DIS Emergency SETH MAHMOOD MD [facility] ER JAW PAIN [id number] 06/13/2015 15:54:00 Document Registration
--- NOTE | 2018-11-15 01:58 | ED Fall/Injury ---
General Chief Complaint: Laceration Stated Complaint: FELL,RT EYE BROW LAC Nursing Triage Note: PT STATES HE WAS WALKING AND THE PORCH GAVE OUT ON HIM AND HE HIT HIS HEAD ON RAILING. PT DENIES LOC OR BLOOD THINNERS. PT HAS LACERATION TO RIGHT EYEBROW. Source: patient Exam Limitations: no limitations History of Present Illness Date Seen by Provider: Nov 15, 2018 Time Seen by Provider: 01:30 Initial Comments This 68-year-old gentleman presents to the emergency room with a laceration at the right brow after striking his face on a railing. He was walking on the pat io when a board gave way under his foot causing him to fall into the railing. He has some minor bruising and slight abrasion to the lower extremities but otherwise denies any other injury. He denies any loss of consciousness or signs or symptoms of concussion. He is up-to-date on his tetanus immunization. Vision is unaffected and there is no injury to the eye itself. Allergies and Home Medications Allergies Coded Allergies: No Known Drug Allergies (Unverified , 07/27/17) Home Medications Lisinopril 20 Mg Tablet, 20 MG PO DAILY, (Reported) Patient Home Medication List Home Medication List Reviewed: Yes Review of Systems Review of Systems Constitutional: no symptoms reported Eyes: No Symptoms Reported Ears, Nose, Mouth, Throat: no symptoms reported Respiratory: no symptoms reported Cardiovascular: no symptoms reported Gastrointestinal: no symptoms reported Genitourinary: no symptoms reported Musculoskeletal: no symptoms reported Skin: see HPI Psychiatric/Neurological: No Symptoms Reported Past Mwpysid-Lqbvks-Pqcdsq Hx Patient Social History Alcohol Use: Denies Use Recreational Drug Use: No Smoking Status: Never a Smoker Recent Foreign Travel: No Contact w/Someone Who Travel: No Recent Infectious Disease Expo: No Recent Hopitalizations: No Physical Abuse: No Sexual Abuse: No Mistreated: No Fear: No Immunizations Up To Date Date of Pneumonia Vaccine: May 10, 2017 Date of Influenza Vaccine: Feb 21, 2017 Seasonal Allergies Seasonal Allergies: No Past Medical History Surgeries: Yes (CARPAL TUNNEL) Respiratory: No Cardiac: Yes Hypertension Neurological: No Reproductive Disorders: No Sexually Transmitted Disease: No HIV/AIDS: No Gastrointestinal: No Musculoskeletal: Yes Arthritis Endocrine: No Cancer: No Psychosocial: No Integumentary: No Blood Disorders: No Adverse Reaction/Blood Tranf: No Physical Exam Vital Signs Vital Signs - First Documented 11/15/18 01:44 Temp 97.6 Pulse 101 Resp 18 B/P (MAP) 133/98 (110) Pulse Ox 94 O2 Delivery Room Air Capillary Refill : Less Than 3 Seconds Height, Weight, BMI Height: 6'0.00" Weight: 280lbs. 0.0oz. 127.943318pj; 38.0 BMI Method:Stated General Appearance: WD/WN, no apparent distress HEENT: PERRL/EOMI, pharynx normal, other (2 cm slightly gaping laceration at th e right brow) Neck: normal inspection Cardiovascular: regular rate, rhythm, no edema, no murmur Respiratory: lungs clear, normal breath sounds, no respiratory distress, no accessory muscle use Extremities: no pedal edema, other (Subtle bruising/abrasions to the lower extremities) Neurologic/Psychiatric: energy administrator II-XII nml as tested, no motor/sensory deficits, alert, normal mood/affect, oriented x 3 Skin: normal color, warm/dry, other (See above) Jerry Coma Score Best Eye Response: (4) Open Spontaneously Best Verbal Response: (5) Oriented Best Motor Response: (6) Obeys Commands Jerry Total: 15 Procedures/Interventions Other Wound Location Right brow Wound Length (cm): 2 Wound Explored: clean Wound was scrubbed with sterile water and chlorhexidine. It was then lightly rinsed with sterile water. Wound was then approximated with glue. Progress/Results/Core Measures Results/Orders Vital Signs/I&O 11/15/18 11/15/18 01:44 02:03 Temp 97.6 97.6 Pulse 101 101 Resp 18 18 B/P (MAP) 133/98 (110) 133/98 (110) Pulse Ox 94 94 O2 Delivery Room Air Blood Pressure Mean: 110 Departure Impression Primary Impression: Fall on same level Qualified Codes: W18.30XA - Fall on same level, unspecified, initial encounter Additional Impressions: Laceration of forehead Qualified Codes: S01.81XA - Laceration without foreign body of other part of head, initial encounter Minor head injury Qualified Codes: S09.90XA - Unspecified injury of head, initial encounter Disposition: 01 HOME, SELF-CARE Condition: Improved Departure-Patient Inst. Decision time for Depature: 01:56 Referrals: LAKESHA REDDY MD (PCP/Family) Primary Care Physician Patient Instructions: Laceration Repair With Glue (DC) Add. Discharge Instructions: Return to care if you develop signs of concussion such as vision changes, confusion, increasing headache, etc. Monitor your wound for signs of infection such as increasing swelling, increasing redness, puslike drainage, or fever. Return to care promptly if you notice these symptoms. Allow the glue to slough off naturally. Do not attempt to peel the glue off as this may reopen the wound. If you have significant loose edges, they may be trimmed off with small scissors or fingernail clippers. Do not submerge for at least 5 days. You may shower and allow soapy water to run over the wound. Return to care or call your doctor if you have any other questions or concerns. All discharge instructions reviewed with patient and/or family. Voiced understanding. SETH MAHMOOD MD Nov 15, 2018 01:58
[2018-11-15 02:03] VITALS: BP 133/98
== END 2018-11-15 02:01 | disposition home or self-care (01) ==
LOC: EDUNIT# 01:18 → ER 01:20
DX: S09.90XA Unspecified injury of head, initial encounter (principal); S01.81XA Laceration without foreign body of other part of head, initial encounter; I10 Essential (primary) hypertension; R40.2142 Coma scale, eyes open, spontaneous, at arrival to emergency department; R40.2252 Coma scale, best verbal response, oriented, at arrival to emergency department; R40.2362 Coma scale, best motor response, obeys commands, at arrival to emergency department; W01.198A Fall on same level from slipping, tripping and stumbling with subsequent striking against other object, initial encounter; Y93.01 Activity, walking, marching and hiking
CPT/HCPCS: 99282

== ENCOUNTER → 2020-10-21 | Outpatient (CLI) | payer MEDICARE ==
[~2020-10-21] MED LIST changes: +INDO50SU RC; -INDO50SU2 RC; -LISI-552 PO; +LISI20TA26 PO
--- NOTE | 2020-10-21 11:29 | Diagnostic Imaging Report ---
INDICATION: Screening for osteoporosis. COMPARISON: None available. FINDINGS: AP Spine L1-L4: [BMD (g/cm2): 1.329] [T-Score: 0.7] [Z-Score: 0.5] [BMD Previous: NA] [BMD % Change: NA] LT Hip Neck: [BMD (g/cm2): 1.138] [T-Score: 0.5] [Z-Score: 1.3] LT Hip Total: [BMD (g/cm2):1.187] [T-Score:0.6] [Z-Score: 0.9] [BMD Previous: NA] [BMD % Change: NA] RT Hip Neck: [BMD (g/cm2):0.968] [T-Score:-0.8] [Z-Score:-0.1] RT Hip Total: [BMD (g/cm2):1.091] [T-score:-0.1] [Z-Score:0.2] [BMD Previous:NA] [BMD % Change:NA] *Indicates significant change from prior examination based on 95% confidence level. World Health Organization criteria for BMD interpretation classify patients as Normal (T-score at or above -1.0), Osteopenic (T-score between -1.0 and -2.5) or Osteoporotic (T-score at or below -2.5). LIMITATIONS AND MODIFICATION: None. IMPRESSION: 1. Normal bone mineral density. 2. Baseline examination. 3. See below National Osteoporosis Foundation guidelines on when to potentially initiate pharmacologic therapy. Based on the National Osteoporosis Foundation Guidelines, pharmacologic treatment should be initiated in any of the following, unless clinical conditions suggest otherwise: * Any patient with prior fragility fracture of the hip or vertebrae. A spine fracture indicates 5X risk for subsequent spine fracture and 2X risk for subsequent hip fracture. * Osteoporosis (T-score <-2.5). * Postmenopausal women and men age 50 and older with low bone mass/osteopenia (T-score between -1.0 and -2.5) by DXA and 10-year major osteoporotic fracture greater than 20% or a 10-year probability of hip fracture greater than 3%. These fracture risks are supplied above in the FRAX score, if applicable. * Clinician judgement and/or patient preferences may indicate treatment for people with 10-year fracture probabilities above or below these levels. Dictated by: Dictated on workstation # [id number]
== END ==
LOC: RAD 09:51
PROVIDERS: ATTEND Internal Medicine
DX: Z13.820 Encounter for screening for osteoporosis (principal)
CPT/HCPCS: 77080

== ENCOUNTER → 2022-03-04 | Outpatient (CLI) | payer MEDICARE | LOC: WOUNDCARE 09:00 | PROVIDERS: ATTEND Family Medicine | DX: L89.313 Pressure ulcer of right buttock, stage 3 (principal); E66.01 Morbid (severe) obesity due to excess calories; M62.81 Muscle weakness (generalized); R26.89 Other abnormalities of gait and mobility; Z68.42 Body mass index [BMI] 45.0-49.9, adult | CPT/HCPCS: 11042; A6197; A6212; G0463; 99213 ==

== ENCOUNTER → 2022-03-08 | Outpatient (CLI) | payer MEDICARE | LOC: WOUNDCARE 14:53 | PROVIDERS: ATTEND Family Medicine | DX: L89.313 Pressure ulcer of right buttock, stage 3 (principal); E66.01 Morbid (severe) obesity due to excess calories; M62.81 Muscle weakness (generalized); R26.89 Other abnormalities of gait and mobility; Z68.42 Body mass index [BMI] 45.0-49.9, adult | CPT/HCPCS: A6212; G0463; 99212 ==

== ENCOUNTER → 2022-03-15 | Outpatient (CLI) | payer MEDICARE | LOC: WOUNDCARE 14:25 | PROVIDERS: ATTEND Family Medicine | DX: L89.313 Pressure ulcer of right buttock, stage 3 (principal); E66.01 Morbid (severe) obesity due to excess calories; M62.81 Muscle weakness (generalized); I96 Gangrene, not elsewhere classified; R26.89 Other abnormalities of gait and mobility | CPT/HCPCS: 11042; G0463 ==

== ENCOUNTER → 2022-03-22 | Outpatient (CLI) | payer MEDICARE | LOC: WOUNDCARE 14:27 | PROVIDERS: ATTEND Family Medicine | DX: E66.01 Morbid (severe) obesity due to excess calories (principal); R26.89 Other abnormalities of gait and mobility; M62.81 Muscle weakness (generalized); I96 Gangrene, not elsewhere classified | CPT/HCPCS: 99212 ==

== ENCOUNTER 2022-07-28 05:43 | Outpatient (CLI) | payer MEDICARE ==
[~2022-07-28] VITALS: Ht 182.9 cm; Wt 136.1 kg
[2022-07-28] MEDS ORDERED: CARB1TAB32 PO (09:33)
[2022-07-28] MEDS ORDERED: BUME2TAB7 PO (09:33)
[2022-07-28] MEDS ORDERED: ROPI3TAB4 PO (09:33)
== END 2022-07-28 09:34 | disposition home or self-care (01) ==
LOC: PREOP 05:43
PROVIDERS: ATTEND Surgery
DX: Z01.818 Encounter for other preprocedural examination (principal)

== ENCOUNTER 2022-08-09 07:09 | Day surgery (SDC) | payer MEDICARE ==
[~2022-08-09] VITALS: Ht 182.9 cm; Wt 136.1 kg
[~2022-08-09 07:09] MED LIST changes: +BUME2TAB7 PO; +CARB1TAB32 PO; +ROPI3TAB4 PO
[2022-08-09] MEDS ORDERED: LACTATED RINGERS 1,000 ML IV STA (07:14)
[2022-08-09 07:35] VITALS: BP 136/91
[2022-08-09] MEDS ORDERED: MIDAZOLAM 2 MG/2 ML (VERSED) VIAL ONE (08:12)
[2022-08-09] MEDS ORDERED: PROPOFOL INJECTION 50 ML IV ONE (08:12)
[2022-08-09] MEDS ORDERED: KETAMINE 50 MG/5 ML SYRINGE ONE (08:16)
[2022-08-09 08:47] VITALS: BP 92/56
--- NOTE | 2022-08-09 08:47 | Progress Note-Post Operative ---
Post-Operative Progess Note Surgeon (s)/Algorithm Developer (s) Surgeon ASHLYN LYNCH DO Algorithm Developer: RODGER KitchenII Pre-Operative Diagnosis Hx of Polyps Post-Operative Diagnosis polyp diverticula int hem Procedure & Operative Findings Date of Procedure 08/09/22 Procedure Performed/Findings Colonoscopy with hot biopsy PROCEDURE NOTE: After informed consent was obtained, the patient was brought to the endoscopy suite, placed in bed in left lateral decubitus position. He was administered IV sedation by the ENGINEER SECOND ASSISTANT who then monitored his vitals the entire time, heart rate, blood pressure and pulse ox and the scope was inserted, pushed all the way to about 150 cm and pushed into the cecum. On the way in noted some diverticula and took a picture; he actually had one in the cecum but most on the left side. Once in the cecum I took a picture of appendiceal orifice and noted the ileocecal valve. Then slowly withdrew the scope insufflating to look circumferentially at the erwin starting in the cecum, up the ascending colon to the hepatic flexure, then down the transverse colon to the splenic flexure and into the descending colon. Here I found a flat polyp and elected to do a hot biopsy. Pt had a lot of retained liquid fecal material and I was able to suction most of it out. Continued down into the sigmoid and then into the rectal vault and retroflexed the scope. Took a picture of the internal hemorrhoids. The patient tolerated the procedure. He was recovered in endoscopy suite. Recommended for repeat colonoscopy in 5 years. Anesthesia Type IV sedation by ENGINEER SECOND ASSISTANT Estimated Blood Loss Estimated blood loss (mL): scant Specimens/Packing Specimens Removed desc colon polyp ASHLYN LYNCH DO Aug 09, 2022 08:47
--- NOTE | 2022-08-09 08:49 | Endoscopy Discharge Instruct ---
Endo Procedure/Findings Findings 1.: Polyp 2.: Diverticulosis 3.: Internal Hemorrhoids Discharge Instructions - Activity: You might feel a little sleepy until tomorrow. This is due to the medicine you received to relax you. Until tomorrow, you should: NOT drive a car, operate machinery or power tools. NOT drink any alcoholic beverages. NOT make any important decisions or sign importortant papers. Do not return to work until tomorrow, unless otherwise instructed. Resume previous activities tomorrow. Diet: Start by taking liquids. If you tolerate liquids, advance to solid food. 1.: Colonscopy in 5 years Notify Physician - If you experience excessive bleeding, unusual abdominal pain, fever, or chest pain, contact your doctor immediately. ASHLYN LYNCH DO Aug 09, 2022 08:49
[2022-08-09 08:52] VITALS: BP 102/76
[2022-08-09 08:55] VITALS: BP 102/76
[2022-08-09 09:16] VITALS: BP 110/73
--- NOTE | 2022-08-09 15:32 | Anesthesia-General Post-Op ---
MAC Patient Condition Mental Status/LOC: Same as Preop Cardiovascular: Satisfactory Nausea/Vomiting: Absent Respiratory: Satisfactory Pain: Controlled Complications: Absent Post Op Complications Complications None Follow Up Care/Instructions Patient Instructions None needed. Anesthesiology Discharge Order Discharge Order Patient is doing well, no complaints, stable vital signs, no apparent adverse anesthesia problems. No complications reported per nursing. JULIEN STOREY CRNA Aug 09, 2022 15:32
== END 2022-08-09 09:44 | disposition home or self-care (01) ==
LOC: ENDO 07:09
PROVIDERS: ATTEND Surgery
DX: Z12.11 Encounter for screening for malignant neoplasm of colon (principal); K63.5 Polyp of colon; K57.30 Diverticulosis of large intestine without perforation or abscess without bleeding; K64.8 Other hemorrhoids; K63.89 Other specified diseases of intestine; E66.01 Morbid (severe) obesity due to excess calories; Z85.038 Personal history of other malignant neoplasm of large intestine; K42.9 Umbilical hernia without obstruction or gangrene; Z68.41 Body mass index [BMI] 40.0-44.9, adult